=== PATIENT | male | born 1955 | race Caucasian/White ===

== ENCOUNTER → 2016-12-03 | Outpatient (CLI) | payer MEDICAID, OTHER ==
[2016-12-03 09:24] LABS: CHLORIDE,CL 99 mmol/L (98-110); SODIUM,NA 136 mmol/L (136-146)
--- NOTE | 2016-12-03 12:35 | CR ---
EXAMINATION: Left ankle HISTORY: Pain COMPARISON: None TECHNIQUE: 3 views FINDINGS: There is flattening of the talar dome. There is a well-corticated ossific density anterior to the distal tibia, likely an old injury. There is a prominent osteophyte along the lateral aspect of the distal fibula with overlying soft tissue swelling, also likely secondary to an old injury. M oderate soft tissue swelling is noted along the medial aspect of the ankle. There is likely a modera te tibiotalar joint effusion. Bone mineralization appears normal. No fracture or acute osseous abdom en. IMPRESSION: 1. Flattening of the talar dome. 2. Soft tissue swelling surrounding the ankle with a moderate tibiotalar joint effusion. 3. Likely an old traumatic deformity of the distal fibula and anterior distal tibia. 4. No acute osseous abnormality.
== END ==
LOC: MW.CHFP 08:44
PROVIDERS: ATTEND Student in an Organized Health Care Education/Training Program
DX: M25.572 Pain in left ankle and joints of left foot (principal); E11.69 Type 2 diabetes mellitus with other specified complication; E78.5 Hyperlipidemia, unspecified; I10 Essential (primary) hypertension; M89.8X7 Other specified disorders of bone, ankle and foot; R22.42 Localized swelling, mass and lump, left lower limb
CPT/HCPCS: 36415; 73610-26-LT; 73610-LT; 80053; 80061; 82044; 83036

== ENCOUNTER 2020-07-29 09:30 | Inpatient (IN) | payer BC ==
[2020-07-29] MEDS ORDERED: Sodium Chloride 0.9% 10 ML Syringe FLUSH PRN (09:41)
[2020-07-29] MEDS ORDERED: Gentamicin 160 MG in Sodium Chloride 0.9% 100 ML IV ONE (09:41)
[2020-07-29] MEDS ORDERED: Piperacillin/Tazobactam 4.5 GM in Sodium Chloride 0.9% 100 ML IV ONE ×3 (09:41→12:15)
[2020-07-29] MEDS ORDERED: Sodium Chloride 0.9% 2.5 ML Syringe FLUSH PRN (09:41)
[2020-07-29] MEDS ORDERED: Lactated Ringers 1,000 ML IV SCH ×2 (10:00)
--- NOTE | 2020-07-29 10:24 | CR ---
INDICATION: Syncope COMPARISON: None TECHNIQUE: Single-view portable chest radiograph FINDINGS: TUBES AND LINES: None. HEART AND MEDIASTINUM: The heart size is normal. The mediastinal contour appears normal for patient age. LUNGS AND PLEURAL SPACES: The lungs appear normal.The pleural spaces are unremarkable. OSSEOUS STRUCTURES: Age-appropriate appearance. No acute focal finding. IMPRESSION: No evidence of active pulmonary disease. Dictated by Long Zuniga MD @ Jul 29 2020 10:22AM Signed by Dr. Long Zuniga @ Jul 29 2020 10:23AM
--- NOTE | 2020-07-29 10:28 | CR ---
Indication: Concern for necrotizing fasciitis Technique: Two images of the right lower leg were acquired Comparison: None Findings: Clearly visible diffuse cutaneous and subcutaneous induration without obvious free air by plain film. No bone destruction. This pattern is most consistent with cellulitis in the setting of signs and symptoms of infection. CT is more sensitive for soft tissue air than plain film. If there is strong concern for necrotizing fasciitis, a CT would be advised. Impression: 1. Cutaneous and subcutaneous induration without obvious gas within soft tissues. 2. CT is more sensitive for soft tissue air than plain film in should be considered if there is significant clinical concern for necrotizing fasciitis. 3. No bone destruction or periosteal reaction. No radiopaque foreign body Dictated by Long Zuniga MD @ Jul 29 2020 10:24AM Signed by Dr. Long Zuniga @ Jul 29 2020 10:27AM
[2020-07-29 10:33] LABS: BLOOD UREA NITROGEN,BUN 24 mg/dL (7.0-18.0); CARBON DIOXIDE,CO2 17.8 mmol/L (21.0-32.0); CHLORIDE,CL 92 mmol/L (98-107); GLUCOSE RANDOM 161 mg/dL (74-106); POTASSIUM,K 3.7 mmol/L (3.5-5.1); SODIUM,NA 125 mmol/L (136-148)
[2020-07-29] MEDS ORDERED: Iopamidol 755 MG/ML 500 ML Multipack Bottle IVPUSH STA (11:30)
[2020-07-29] MEDS ORDERED: Vancomycin/Water for INJ (PEG) 2 GM in Premix Bag 1 BAG IV ONE (12:00)
--- NOTE | 2020-07-29 12:00 | EDM.PDOC ---
ED HPI GENERAL MEDICAL PROBLEM - General Chief Complaint: General Stated Complaint: EMS ARRIVAL Time Seen by Provider: 07/29/20 09:41 - History of Present Illness INITIAL COMMENTS - FREE TEXT/NARRATIVE: CHIEF COMPLAINT(S): Weakness HISTORY OF PRESENT ILLNESS: This is a 64-year-old man with a past medical history of diabetes mellitus and atrial fibrillation who comes to the emergency department with a chief complaint of weakness. The patient states that for approximately 4 days now he has been experiencing weakness. He states that he feels "like I have the flu." He states that he does have body aches but has not had a fever at home. He denies any chest pain or shortness of breath. He denies any abdominal pain, nausea or vomiting. He denies any dysuria or hematuria. Per EMS: The patient had 3 syncopal episodes this morning and that he does have open sores to his feet. Per the and EMS the right lower extremity started to get redder over the last day or so. The patient states that he did not have syncopal episodes and was just weak and unable to stand up on his own. He denies any falls or loss of consciousness. States that he does not walk with a walker but he does occasionally use a cane. In regards to his diabetic foot ulcers he states that this has been a longstanding problem and did not recognize the redness on his right leg. In route EMS stated the patient's blood pressure was 75/40 and the patient had an irregularly tachycardic rhythm up to 130. Blood sugar was 168. REVIEW OF SYSTEMS: Constitutional: Positive for weakness denies fever, chills. Eyes: Denies eye pain Ears, Nose, Mouth, & Throat: Denies earache Cardiovascular: Denies chest pain Respiratory: Denies shortness of breath Gastrointestinal: Denies Nausea, vomiting, diarrhea, hematochezia. Genitourinary: Denies hematuria Skin: Positive for bilateral foot diabetic ulcers and a rash of the right lower leg Neurological: Today for peripheral neuropathy of bilateral lower extremities. Denies blurred vision Psychiatric: Denies depression PAST MEDICAL HISTORY: As per history of present illness and as reviewed below otherwise noncontributory. SURGICAL HISTORY: As per history of present illness and as reviewed below otherwise noncontributory. SOCIAL HISTORY: As per history of present illness and as reviewed below otherwise noncontributory. FAMILY HISTORY: As per history of present illness and as reviewed below otherwise noncontributory. EXAMINATION OF ORGAN SYSTEMS/BODY AREAS: Constitutional: Blood pressure was 99/57, heart rate 118, respiratory rate 20 with an oxygen saturation 96% on room air. Temperature 38.0 orally General: Elderly obese gentleman who does not appear to be in any acute distress Psychiatric: Appropriate mood and affect. Eyes: No scleral icterus or conjunctival erythema ENMT: Mildly dry mucous membranes. No pharyngeal erythema. Cardiovascular: Irregular tachycardic rhythm no gallops, murmurs, or rubs. Bilateral upper extremity pulses symmetric and intact. No obvious JVD. Respiratory: Lungs clear to auscultation bilaterally. No wheezes, rales, or rhonchi. Speaking in full sentences Gastrointestinal: Soft, non-tender, non-distended. Normoactive bowel sounds Genitourinary: No suprapubic tenderness Musculoskeletal: Patient cannot move all 4 extremities equally however patient does appear to be weak. Skin: There are 2 bilateral diabetic foot ulcers located on the heels bilaterally which appear dry and nonpurulent. On the right lower extremity there does appear to be an erythematous rash extending up to the mid thigh and on the top of the foot with some areas of boils. This area is nontender and warm to touch. No obvious crepitus. Neurological: Alert, GCS 15 MEDICAL DECISION MAKING AND COURSE IN THE ED WITH INTERPRETATION/REVIEW OF DIAGNOSTIC STUDIES: This is a 64-year-old man with a past medical history of diabetes mellitus and atrial fibrillation who comes to the emergency department with weakness who is febrile, tachycardic, and borderline hypotensive with an area of his right lower extremity suggesting cellulitis versus diabetic foot ulcer with extending infection concerning for possible cellulitis versus necrotizing fasciitis. There is no obvious crepitus and the patient's blood pressure has improved after EMS has given 1 L of normal saline. We will undergo a sepsis work-up. Will obtain CBC, CMP, coags, lactic acid and provide the patient with an additional 1.5 L of lactated Ringer's for an equivalent of 30 cc/kg. We will start the patient on vancomycin, Zosyn, and gentamicin. I will obtain a chest x-ray, urinalysis, right lower extremity x-ray and a CT of the right lower extremity to evaluate for free air. At this time the patient is not complaining of any pain therefore no pain medication will be administered. Mynor juarez will be placed on cardiac monitoring and pulse oximetry. Will obtain coronavirus and influenza swabs. Laboratory: CBC reveals thrombocytopenia with a platelet count of 101 with normal WBC count but neutropenia and lymphopenia. There is a moderate amount of reactive lymphocytes in vacuolated monocytes. Coags are within normal limits. Lactic acid is 1.3. The patient has hyponatremia at 125, hypochloremia at 92 and a metabolic acidosis with a bicarbonate of 17.8. There is hyperglycemia at 161 and hypocalcemia at 8.1. Hypoalbuminemia at 2.7. The radiological images were viewed by myself along with reading the report from the radiologist. Chest x-ray reveals no acute cardiopulmonary process. Right tib-fib x-ray reveals cutaneous and subcutaneous induration without obvious gas within soft tissues. Twelve-lead EKG interpreted by myself. Atrial fibrillation at a rate of 116beats per minute. Normal axis. QRS duration is 106ms. ST segments are normal without elevations or depressions. Q waves present in lead III and aVF. Hypertrophy not noted. No prior EKGs in our system. Interpretation: Atrial fibrillation with mild RVR The radiological images were viewed by myself along with reading the report from the radiologist. Lower extremity CT with and without contrast does not reveal any evidence of subcutaneous air. There is mild subcutaneous edema over the anterior and medial thigh and subcutaneous edema and fluid surrounding the calf. After imaging, fluids, and reevaluation the patient's heart rate remained stable and the patient was now with a MAP greater than 65. I did discuss with patient admission. He was amenable to this plan. I contacted medical director of hospice Dr. Virgen who accepted the admission. DISPOSITION: The patient was admitted to telemetry in stable condition CONDITION: Serious PROCEDURES: None FINAL IMPRESSION(S)/DIAGNOSES: 1. Acute sepsis secondary to right lower extremity cellulitis Clemente Barahona M.D. shoulders Pain Score (Numeric/FACES): 5 - Related Data Allergies Allergy/AdvReac Type Severity Reaction Status Date / Time No Known Allergies Allergy Verified 07/29/20 15:08 Home Meds: Home Meds Apixaban [Eliquis] 5 mg PO BID 07/29/20 [History] Diltiazem [Cardizem] 120 mg PO DAILY 07/29/20 [History] Empagliflozin [Jardiance] 25 mg PO DAILY 07/29/20 [History] Furosemide [Lasix] 50 mg PO DAILY 07/29/20 [History] Spironolactone [Aldactone] 25 mg PO DAILY 07/29/20 [History] carvediloL [Carvedilol] 25 mg PO BID 07/29/20 [History] lisinopriL [Lisinopril] 10 mg PO DAILY 07/29/20 [History] Past Medical History Cardiovascular History: Reports: Afib, Hypertension Endocrine/Metabolic History: Reports: Diabetes, Type II - Infectious Disease History Infectious Disease History: Reports: Chicken Pox, Measles, Mumps ED ROS GENERAL - Review of Systems Review Of Systems: See Below ED EXAM, GENERAL - Physical Exam Exam: See Below Course - Vital Signs Last Recorded V/S: Last Vital Signs Temp 36.7 C 07/29/20 18:37 Pulse 130 H 07/29/20 18:37 Resp 20 07/29/20 18:37 BP 105/69 07/29/20 18:37 Pulse Ox 96 07/29/20 18:37 - Orders/Labs/Meds Orders: Active Orders 24 hr Category Date Time Status Cardiac Monitoring [RC] Q8H Care 07/29/20 09:42 Active Overnight Pulse Oximetry [RC] Click to Edit Care 07/29/20 09:43 Active CULTURE BLOOD [BC] Stat Lab 07/29/20 09:43 Received CULTURE BLOOD [BC] Stat Lab 07/29/20 09:57 Received STOOL CULTURE/SHIGA TOXIN [MREF] Stat Lab 07/29/20 13:15 Received Lactated Ringers [Ringers, Lactated] 1,000 ml Med 07/29/20 10:00 Active IV ASDIRECTED Lactated Ringers [Ringers, Lactated] 1,000 ml Med 07/29/20 10:00 Active IV ASDIRECTED Sodium Chloride 0.9% [Saline Flush] Med 07/29/20 09:41 Active 10 ml FLUSH ASDIRECTED PRN Sodium Chloride 0.9% [Saline Flush] Med 07/29/20 09:41 Active 2.5 ml FLUSH ASDIRECTED PRN Blood Culture x2 Reflex Set [OM.PC] Stat Oth 07/29/20 09:41 Ordered Pulse Oximetry Continuous Monitoring [OM.PC] Routine Oth 07/29/20 09:41 Ordered Saline Lock Insert [OM.PC] Stat Oth 07/29/20 09:41 Ordered Severe Sepsis Onset Time [OM.PC] Stat Oth 07/29/20 09:41 Ordered Medication Orders Apixaban (Eliquis) 5 mg PO BID [facility] Carvedilol (Coreg) 25 mg PO BID [facility] Dextrose/Water (Dextrose 50% In Water) 50 ml IV ASDIRECTED PRN PRN Reason: Hypoglycemia Diltiazem HCl (Cardizem Cd) 120 mg PO DAILY [facility] Last Admin: 07/29/20 17:22 Dose: 120 mg Documented by: [email or web address] Diltiazem HCl (Diltiazem) 20 mg IVPUSH Q6H PRN PRN Reason: Tachycardia Furosemide (Lasix) 50 mg PO DAILY [facility] Glucagon (Glucagen) 1 mg IM ASDIRECTED PRN PRN Reason: Hypoglycemia Lactated Ringer's (Ringers, Lactated) 1,000 mls @ 999 mls/hr IV ASDIRECTED [facility] Last Admin: 07/29/20 09:52 Dose: 999 mls/hr Documented by: [id number] Lactated Ringer's (Ringers, Lactated) 1,000 mls @ 500 mls/hr IV ASDIRECTED [facility] Last Admin: 07/29/20 09:53 Dose: 500 mls/hr Documented by: [id number] Piperacillin Sod/Tazobactam (Sod 4.5 gm/ Sodium Chloride) 100 mls @ 100 mls/hr IV Q6H [facility] Last Admin: 07/29/20 17:48 Dose: 100 mls/hr Documented by: [email or web address] Vancomycin HCl 1.5 gm/ Premix 300 mls @ 200 mls/hr IV Q12H [facility] Sodium Chloride (Normal Saline) 1,000 mls @ 500 mls/hr IV STAT ONE Stop: 07/29/20 20:51 Last Admin: 07/29/20 19:18 Dose: 500 mls/hr Documented by: NANCY Insulin Aspart (Novolog) 0 unit SUBCUT TIDAC [facility]; Protocol Last Admin: 07/29/20 17:35 Dose: Not Given Documented by: NANCY Lisinopril (Prinivil) 10 mg PO DAILY [facility] Sodium Chloride (Saline Flush) 10 ml FLUSH ASDIRECTED PRN PRN Reason: Keep Vein Open Last Admin: 07/29/20 09:53 Dose: 10 ml Documented by: [id number] Sodium Chloride (Saline Flush) 2.5 ml FLUSH ASDIRECTED PRN PRN Reason: Keep Vein Open Last Admin: 07/29/20 09:53 Dose: 2.5 ml Documented by: [email or web address] Sodium Chloride ([place] Saline Nasal Gel) 0 gm SCOTT ASDIRECTED PRN PRN Reason: Nasal Dryness Spironolactone (Aldactone) 25 mg PO DAILY [facility] Vancomycin HCl (Pharmacy To Dose - Vancomycin) 1 dose .XX ASDIRECTED GAEL Labs: Laboratory Tests 07/29/20 07/29/20 07/29/20 Range/Units 09:43 09:43 09:43 WBC 9.40 (4.0-11.0) K/uL RBC 4.59 (4.50-5.90) M/uL Hgb 13.3 (13.0-17.0) g/dL Hct 40.3 (38.0-50.0) % MCV 87.8 (80.0-98.0) fL MCH 29.0 (27.0-32.0) pg MCHC 33.0 (31.0-37.0) g/dL RDW Std Deviation 50.6 (28.0-62.0) fl RDW Coeff of Conchita 16 H (11.0-15.0) % Plt Count 101 L (150-400) K/uL MPV 9.00 (7.40-12.00) fL Add Manual Diff YES Neutrophils % (Manual) 43 L (48.0-80.0) % Band Neutrophils % 36 % Lymphocytes % (Manual) 15 L (16.0-40.0) % Monocytes % (Manual) 6 (0.0-15.0) % Nucleated RBC % 0.0 /100WBC Absolute Seg Neuts 4.0 (1.4-5.7) Band Neutrophils # 3.4 Lymphocytes # (Manual) 1.4 (0.6-2.4) Monocytes # (Manual) 0.6 (0.0-0.8) Nucleated RBCs # 0 K/uL Reactive Lymphocytes MODERATE Vacuolated Monocytes MODERATE INR 1.68 Lactate 1.3 (0.20-2.00) mmol/L Sodium (136-148) mmol/L Potassium (3.5-5.1) mmol/L Chloride (98-107) mmol/L Carbon Dioxide (21.0-32.0) mmol/L BUN (7.0-18.0) mg/dL Creatinine (0.8-1.3) mg/dL Est Cr Clr Drug Dosing mL/min Estimated GFR (MDRD) ml/min Glucose (74-106) mg/dL Hemoglobin A1c (4.5 - 6.2) % Calcium (8.5-10.1) mg/dL Total Bilirubin (0.2-1.0) mg/dL AST (15-37) IU/L ALT (14-63) IU/L Alkaline Phosphatase (46-116) U/L Troponin I (0.000-0.056) ng/mL Total Protein (6.4-8.2) g/dL Albumin (3.4-5.0) g/dL Globulin (2.6-4.0) g/dL Albumin/Globulin Ratio (0.9-1.6) Urine Color Urine Appearance Urine pH (5.0-8.0) Ur Specific Stitzer (1.001-1.035) Urine Protein (NEGATIVE) mg/dL Urine Glucose (UA) (NEGATIVE) mg/dL Urine Ketones (NEGATIVE) mg/dL Urine Occult Blood (NEGATIVE) Urine Nitrite (NEGATIVE) Urine Bilirubin (NEGATIVE) Urine Urobilinogen (<2.0) EU/dL Ur Leukocyte Esterase (NEGATIVE) Urine RBC (0-2/HPF) Urine WBC (0-5/HPF) Ur Epithelial Cells (NONE-FEW) Urine Bacteria (NEGATIVE) Influenza Type A RNA (NEGATIVE) Influenza Type B RNA (NEGATIVE) SARS-CoV-2 RNA (MATT) (NEGATIVE) 07/29/20 07/29/20 07/29/20 Range/Units 09:43 09:43 12:05 WBC (4.0-11.0) K/uL RBC (4.50-5.90) M/uL Hgb (13.0-17.0) g/dL Hct (38.0-50.0) % MCV (80.0-98.0) fL MCH (27.0-32.0) pg MCHC (31.0-37.0) g/dL RDW Std Deviation (28.0-62.0) fl RDW Coeff of Conchita (11.0-15.0) % Plt Count (150-400) K/uL MPV (7.40-12.00) fL Add Manual Diff Neutrophils % (Manual) (48.0-80.0) % Band Neutrophils % % Lymphocytes % (Manual) (16.0-40.0) % Monocytes % (Manual) (0.0-15.0) % Nucleated RBC % /100WBC Absolute Seg Neuts (1.4-5.7) Band Neutrophils # Lymphocytes # (Manual) (0.6-2.4) Monocytes # (Manual) (0.0-0.8) Nucleated RBCs # K/uL Reactive Lymphocytes Vacuolated Monocytes INR Lactate (0.20-2.00) mmol/L Sodium 125 L (136-148) mmol/L Potassium 3.7 (3.5-5.1) mmol/L Chloride 92 L (98-107) mmol/L Carbon Dioxide 17.8 L (21.0-32.0) mmol/L BUN 24 H (7.0-18.0) mg/dL Creatinine 1.0 (0.8-1.3) mg/dL Est Cr Clr Drug Dosing 85.45 mL/min Estimated GFR (MDRD) > 60.0 ml/min Glucose 161 H (74-106) mg/dL Hemoglobin A1c 6.8 H (4.5 - 6.2) % Calcium 8.1 L (8.5-10.1) mg/dL Total Bilirubin 1.0 (0.2-1.0) mg/dL AST 17 (15-37) IU/L ALT 18 (14-63) IU/L Alkaline Phosphatase 49 (46-116) U/L Troponin I < 0.050 (0.000-0.056) ng/mL Total Protein 6.2 L (6.4-8.2) g/dL Albumin 2.7 L (3.4-5.0) g/dL Globulin 3.5 (2.6-4.0) g/dL Albumin/Globulin Ratio 0.8 L (0.9-1.6) Urine Color Urine Appearance Urine pH (5.0-8.0) Ur Specific Stitzer (1.001-1.035) Urine Protein (NEGATIVE) mg/dL Urine Glucose (UA) (NEGATIVE) mg/dL Urine Ketones (NEGATIVE) mg/dL Urine Occult Blood (NEGATIVE) Urine Nitrite (NEGATIVE) Urine Bilirubin (NEGATIVE) Urine Urobilinogen (<2.0) EU/dL Ur Leukocyte Esterase (NEGATIVE) Urine RBC (0-2/HPF) Urine WBC (0-5/HPF) Ur Epithelial Cells (NONE-FEW) Urine Bacteria (NEGATIVE) Influenza Type A RNA NEGATIVE (NEGATIVE) Influenza Type B RNA NEGATIVE (NEGATIVE) SARS-CoV-2 RNA (MATT) NEGATIVE (NEGATIVE) 07/29/20 Range/Units 13:13 WBC (4.0-11.0) K/uL RBC (4.50-5.90) M/uL Hgb (13.0-17.0) g/dL Hct (38.0-50.0) % MCV (80.0-98.0) fL MCH (27.0-32.0) pg MCHC (31.0-37.0) g/dL RDW Std Deviation (28.0-62.0) fl RDW Coeff of Conchita (11.0-15.0) % Plt Count (150-400) K/uL MPV (7.40-12.00) fL Add Manual Diff Neutrophils % (Manual) (48.0-80.0) % Band Neutrophils % % Lymphocytes % (Manual) (16.0-40.0) % Monocytes % (Manual) (0.0-15.0) % Nucleated RBC % /100WBC Absolute Seg Neuts (1.4-5.7) Band Neutrophils # Lymphocytes # (Manual) (0.6-2.4) Monocytes # (Manual) (0.0-0.8) Nucleated RBCs # K/uL Reactive Lymphocytes Vacuolated Monocytes INR Lactate (0.20-2.00) mmol/L Sodium (136-148) mmol/L Potassium (3.5-5.1) mmol/L Chloride (98-107) mmol/L Carbon Dioxide (21.0-32.0) mmol/L BUN (7.0-18.0) mg/dL Creatinine (0.8-1.3) mg/dL Est Cr Clr Drug Dosing mL/min Estimated GFR (MDRD) ml/min Glucose (74-106) mg/dL Hemoglobin A1c (4.5 - 6.2) % Calcium (8.5-10.1) mg/dL Total Bilirubin (0.2-1.0) mg/dL AST (15-37) IU/L ALT (14-63) IU/L Alkaline Phosphatase (46-116) U/L Troponin I (0.000-0.056) ng/mL Total Protein (6.4-8.2) g/dL Albumin (3.4-5.0) g/dL Globulin (2.6-4.0) g/dL Albumin/Globulin Ratio (0.9-1.6) Urine Color YELLOW Urine Appearance CLEAR Urine pH 5.5 (5.0-8.0) Ur Specific Stitzer 1.010 (1.001-1.035) Urine Protein NEGATIVE (NEGATIVE) mg/dL Urine Glucose (UA) >=1000 (NEGATIVE) mg/dL Urine Ketones 15 H (NEGATIVE) mg/dL Urine Occult Blood NEGATIVE (NEGATIVE) Urine Nitrite NEGATIVE (NEGATIVE) Urine Bilirubin NEGATIVE (NEGATIVE) Urine Urobilinogen 0.2 (<2.0) EU/dL Ur Leukocyte Esterase NEGATIVE (NEGATIVE) Urine RBC 0-2 (0-2/HPF) Urine WBC 0-2 (0-5/HPF) Ur Epithelial Cells RARE (NONE-FEW) Urine Bacteria FEW (NEGATIVE) Influenza Type A RNA (NEGATIVE) Influenza Type B RNA (NEGATIVE) SARS-CoV-2 RNA (MATT) (NEGATIVE) Meds: Medications Generic Name Dose Route Start Last Admin Trade Name Freq PRN Reason Stop Dose Admin Apixaban 5 mg 07/29/20 21:00 Eliquis PO BID [facility] Carvedilol 25 mg 07/29/20 21:00 Coreg PO BID [facility] Dextrose/Water 50 ml 07/29/20 15:11 Dextrose 50% In Water IV ASDIRECTED PRN Hypoglycemia Diltiazem HCl 120 mg 07/29/20 17:15 07/29/20 17:22 Cardizem Cd PO 120 mg DAILY GAEL Administration Diltiazem HCl 20 mg 07/29/20 19:01 Diltiazem IVPUSH Q6H PRN Tachycardia Furosemide 50 mg 07/30/20 09:00 Lasix PO DAILY [facility] Glucagon 1 mg 07/29/20 15:11 Glucagen IM ASDIRECTED PRN Hypoglycemia Lactated Ringer's 1,000 mls @ 999 mls/hr 07/29/20 10:00 07/29/20 09:52 Ringers, Lactated IV 999 mls/hr ASDIRECTED GAEL Administration Lactated Ringer's 1,000 mls @ 500 mls/hr 07/29/20 10:00 07/29/20 09:53 Ringers, Lactated IV 500 mls/hr ASDIRECTED GAEL Administration Piperacillin Sod/Tazobactam 100 mls @ 100 mls/hr 07/29/20 18:00 07/29/20 17:48 Sod 4.5 gm/ Sodium Chloride IV 100 mls/hr Q6H [facility] Administration Vancomycin HCl 1.5 gm/ Premix 300 mls @ 200 mls/hr 07/29/20 23:30 IV Q12H [facility] Sodium Chloride 1,000 mls @ 500 mls/hr 07/29/20 18:52 07/29/20 19:18 Normal Saline IV 07/29/20 20:51 500 mls/hr STAT ONE Administration Insulin Aspart 0 unit 07/29/20 17:00 07/29/20 17:35 Novolog SUBCUT Not Given TIDAC [facility] Protocol Lisinopril 10 mg 07/30/20 09:00 Prinivil PO DAILY [facility] Sodium Chloride 10 ml 07/29/20 09:41 07/29/20 09:53 Saline Flush FLUSH 10 ml ASDIRECTED PRN Administration Keep Vein Open Sodium Chloride 2.5 ml 07/29/20 09:41 07/29/20 09:53 Saline Flush FLUSH 2.5 ml ASDIRECTED PRN Administration Keep Vein Open Sodium Chloride 0 gm 07/29/20 15:38 [place] Saline Nasal Gel SCOTT ASDIRECTED PRN Nasal Dryness Spironolactone 25 mg 07/30/20 09:00 Aldactone PO DAILY [facility] Vancomycin HCl 1 dose 07/29/20 15:15 Pharmacy To Dose - Vancomycin .XX ASDIRECTED [facility] Discontinued Medications Generic Name Dose Route Start Last Admin Trade Name Freq PRN Reason Stop Dose Admin Acetaminophen 1,000 mg 07/29/20 12:38 07/29/20 13:35 Tylenol Extra Strength PO 07/29/20 12:39 1,000 mg ONETIME ONE Administration Piperacillin Sod/Tazobactam 100 mls @ 200 mls/hr 07/29/20 09:41 07/29/20 12:09 Sod 4.5 gm/ Sodium Chloride IV 07/29/20 10:10 Not Given STAT ONE Gentamicin Sulfate 160 mg/ 104 mls @ 200 mls/hr 07/29/20 09:41 07/29/20 10:51 Sodium Chloride IV 07/29/20 10:10 200 mls/hr STAT ONE Administration Piperacillin Sod/Tazobactam 100 mls @ 200 mls/hr 07/29/20 10:00 07/29/20 12:23 Sod 4.5 gm/ Sodium Chloride IV 07/29/20 10:29 Not Given STAT ONE Vancomycin HCl 2 gm/ Premix 400 mls @ 200 mls/hr 07/29/20 12:00 07/29/20 11:55 IV 07/29/20 13:59 200 mls/hr ONETIME ONE Administration Piperacillin Sod/Tazobactam 100 mls @ 200 mls/hr 07/29/20 12:15 07/29/20 12:21 Sod 4.5 gm/ Sodium Chloride IV 07/29/20 12:44 200 mls/hr STAT ONE Administration Iopamidol 100 ml 07/29/20 11:30 07/29/20 11:30 Isovue Multipack-370 (76%) IVPUSH 07/29/20 11:31 100 ml ONETIME STA Administration Departure - Departure Time of Disposition: 14:02 Disposition: DC/Tfer to Medicaid [facility] Clinical Impression: Cellulitis - Discharge Information Sepsis Event Note (ED) - Evaluation Sepsis Screening Result: Possible Sepsis Risk - Focused Exam Vital Signs: Vital Signs Temp Temp Pulse Resp BP Pulse Ox 07/29/20 13:40 115 H 20 116/86 94 L 07/29/20 13:35 37.8 C 07/29/20 13:07 103 H 84/53 L 94 L 07/29/20 12:53 121 H 94/58 L 96 07/29/20 12:37 116 H 85/50 L 93 L 07/29/20 12:29 104 H 83/42 L 94 L 07/29/20 11:57 119 H 86/52 L 93 L 07/29/20 11:42 107 H 91/55 L 94 L 07/29/20 11:27 107 H 85/52 L 94 L 07/29/20 10:53 112 H 97/56 L 94 L 07/29/20 10:39 127 H 90/53 L 94 L 07/29/20 10:23 114 H 85/47 L 94 L 07/29/20 10:13 104 H 72/44 L 96 07/29/20 09:57 107 H 89/49 L 95 07/29/20 09:47 38.0 C 118 H 20 99/57 L 96 - My Orders Last 24 Hours: My Active Orders 07/29/20 09:41 Sodium Chloride 0.9% [Saline Flush] 10 ml FLUSH ASDIRECTED PRN Sodium Chloride 0.9% [Saline Flush] 2.5 ml FLUSH ASDIRECTED PRN Blood Culture x2 Reflex Set [OM.PC] Stat Pulse Oximetry Continuous Monitoring [OM.PC] Routine Saline Lock Insert [OM.PC] Stat Severe Sepsis Onset Time [OM.PC] Stat 07/29/20 09:42 Cardiac Monitoring [RC] Q8H 07/29/20 09:43 Overnight Pulse Oximetry [RC] Click to Edit CULTURE BLOOD [BC] Stat 07/29/20 09:57 CULTURE BLOOD [BC] Stat 07/29/20 10:00 Lactated Ringers [Ringers, Lactated] 1,000 ml IV ASDIRECTED Lactated Ringers [Ringers, Lactated] 1,000 ml IV ASDIRECTED 07/29/20 13:15 STOOL CULTURE/SHIGA TOXIN [MREF] Stat - Assessment/Plan Last 24 Hours: My Active Orders 07/29/20 09:41 Sodium Chloride 0.9% [Saline Flush] 10 ml FLUSH ASDIRECTED PRN Sodium Chloride 0.9% [Saline Flush] 2.5 ml FLUSH ASDIRECTED PRN Blood Culture x2 Reflex Set [OM.PC] Stat Pulse Oximetry Continuous Monitoring [OM.PC] Routine Saline Lock Insert [OM.PC] Stat Severe Sepsis Onset Time [OM.PC] Stat 07/29/20 09:42 Cardiac Monitoring [RC] Q8H 07/29/20 09:43 Overnight Pulse Oximetry [RC] Click to Edit CULTURE BLOOD [BC] Stat 07/29/20 09:57 CULTURE BLOOD [BC] Stat 07/29/20 10:00 Lactated Ringers [Ringers, Lactated] 1,000 ml IV ASDIRECTED Lactated Ringers [Ringers, Lactated] 1,000 ml IV ASDIRECTED 07/29/20 13:15 STOOL CULTURE/SHIGA TOXIN [MREF] Stat
[2020-07-29] MEDS ORDERED: Acetaminophen 500 MG Tab PO ONE (12:38)
[2020-07-29 12:59] LABS: CORONAVIRUS COVID-19 NAA NEGATIVE (NEGATIVE); INFLUENZA A NAA NEGATIVE (NEGATIVE); INFLUENZA B NAA NEGATIVE (NEGATIVE)
--- NOTE | 2020-07-29 13:50 | CT ---
INDICATION: Evaluate for free air/necrotizing fasciitis. TECHNIQUE: CT scan of the right lower extremity with 100 cc of Isovue-370 given intravenously. FINDINGS: No evidence of acute fracture or dislocation. Mild subcutaneous edema over the anterior and medial thigh. Subcutaneous edema and fluid surrounding the calf. No subcutaneous air. No significant edema deep to the superficial fascia. Varicose veins in the lower thigh and calf. Small knee joint effusion. Prominent right inguinal lymph nodes measuring up to 1.6 cm in short axis. Impression : 1. Mild subcutaneous edema over the anterior and medial thigh. Subcutaneous edema and fluid surrounding the calf. 2. No significant edema deep to the superficial fascia. No subcutaneous air. Dictated by Santos Tyler MD @ 07/29/2020 1:49:02 PM Dictated by: Santos Tyler MD @ 07/29/2020 13:49:26 (Electronically Signed)
--- NOTE | 2020-07-29 13:50 | CT ---
INDICATION: Evaluate for free air/necrotizing fasciitis. TECHNIQUE: CT scan of the right lower extremity with 100 cc of Isovue-370 given intravenously. FINDINGS: No evidence of acute fracture or dislocation. Mild subcutaneous edema over the anterior and medial thigh. Subcutaneous edema and fluid surrounding the calf. No subcutaneous air. No significant edema deep to the superficial fascia. Varicose veins in the lower thigh and calf. Small knee joint effusion. Prominent right inguinal lymph nodes measuring up to 1.6 cm in short axis. Impression : 1. Mild subcutaneous edema over the anterior and medial thigh. Subcutaneous edema and fluid surrounding the calf. 2. No significant edema deep to the superficial fascia. No subcutaneous air. Please note that all CT scans at this facility use dose modulation, iterative reconstruction, and/or weight-based dosing when appropriate to reduce radiation dose to as low as reasonably achievable. Dictated by Santos Tyler MD @ Jul 29 2020 1:31PM Signed by Dr. Santos Tyler @ Jul 29 2020 1:48PM
--- NOTE | 2020-07-29 14:17 | PCM.HP.2 ---
<Roshan Akhtar - Last Filed: 07/29/20 16:40> H&P History of Present Illness - General Date of Service: 07/29/20 Admit Problem/Dx: Admission Diagnosis/Problem Admission Diagnosis/Problem Sepsis Source of Information: Patient History Limitations: Reports: No Limitations - History of Present Illness Initial Comments - Free Text/Narative: Patient is a 64-year-old male with a significant past medical history of diastolic heart failure, chronic lower extremity ulcerations in light of his type 2 diabetes, morbid obesity, chronic atrial fibrillation on diltiazem and Eliquis presenting today to ED via EMS secondary to concerns for fatigue without altered mental status and or loss of consciousness. Reported via EMS of having elevated heart greater than 130 without any associated chest pain and or shortness of breath. Patient otherwise was in no acute distress. ED course: Covid negative. Flu negative. Mildly tachycardic received 1 L lactated Ringer's. Lower extremity cellulitis concerns for etiology of sepsis; provided dose of vancomycin and Zosyn and gentamicin for pseudomonal coverage. Heart rate improved with fluids with a pulse hovering between 100-115 Lactate: 1.3 CT of lower extremity/right: suggests mild subcutaneous edema over anterior medial thigh of right lower extremity. No significant edema deep to superficial fascia No free air noted Bedside: No acute distress. Cellulitis noted. shoulders Pain Score (Numeric/FACES): 5 - Related Data Allergies/Adverse Reactions: Allergies Allergy/AdvReac Type Severity Reaction Status Date / Time No Known Allergies Allergy Verified 07/29/20 15:08 Home Medications: Home Meds Apixaban [Eliquis] 5 mg PO BID 07/29/20 [History] Diltiazem [Cardizem] 120 mg PO DAILY 07/29/20 [History] Empagliflozin [Jardiance] 25 mg PO DAILY 07/29/20 [History] Furosemide [Lasix] 40 mg PO DAILY 07/29/20 [History] Spironolactone [Aldactone] 25 mg PO DAILY 07/29/20 [History] carvediloL [Carvedilol] 25 mg PO BID 07/29/20 [History] lisinopriL [Lisinopril] 10 mg PO DAILY 07/29/20 [History] Past Medical History Cardiovascular History: Reports: Afib, Hypertension Endocrine/Metabolic History: Reports: Diabetes, Type II - Infectious Disease History Infectious Disease History: Reports: Chicken Pox, Measles, Mumps H&P Review of Systems - Review of Systems: Review Of Systems: See Below General: Reports: Malaise. Denies: Fever, Chills, Fatigue HEENT: Reports: No Symptoms Pulmonary: Reports: No Symptoms Cardiovascular: Reports: No Symptoms Gastrointestinal: Reports: No Symptoms Genitourinary: Reports: No Symptoms Musculoskeletal: Reports: Back Pain Skin: Reports: Rash, Erythema, Lumps Psychiatric: Reports: No Symptoms Neurological: Reports: No Symptoms Exam - Exam Exam: See Below - Vital Signs Vital Signs: Last Vital Signs Temp 100.0 F 07/29/20 13:35 Pulse 115 H 07/29/20 13:40 Resp 20 07/29/20 13:40 BP 116/86 07/29/20 13:40 Pulse Ox 94 L 07/29/20 13:40 Weight: 133.81 kg - Exam Quality Assessment: No: Supplemental Oxygen General: Cooperative HEENT: EOMI Neck: Supple, Trachea Midline Lungs: Clear to Auscultation, Normal Respiratory Effort Cardiovascular: Regular Rate, Irregular Rhythm GI/Abdominal Exam: Soft, Other (obese; no fluid wave noted ) (Male) Exam: Other (no overt rash noted in genital area ) Extremities: Other (right lower extremity :cellultiis noted over right lower extremity tracking upto 2/3 of right leg w. increased warmth and mild tenderness noted over shins w. hemorrhagic bullae over dorsum of foot measuring 3 x3 cm (black and raised) ; lesions w. weeping ddrainage noted over heel as well. Sensation intact. Left foot : heel erythema noted over heel w. minimal skin breakdown. ) Neurological: Normal Speech Neuro Extensive - Mental Status: Alert, Oriented x3 Psychiatric: Alert, Normal Mood - Patient Data Lab Results Last 24 hrs: Laboratory Results - last 24 hr 07/29/20 07/29/20 07/29/20 Range/Units 09:43 09:43 09:43 WBC 9.40 (4.0-11.0) K/uL RBC 4.59 (4.50-5.90) M/uL Hgb 13.3 (13.0-17.0) g/dL Hct 40.3 (38.0-50.0) % MCV 87.8 (80.0-98.0) fL MCH 29.0 (27.0-32.0) pg MCHC 33.0 (31.0-37.0) g/dL RDW Std Deviation 50.6 (28.0-62.0) fl RDW Coeff of Conchita 16 H (11.0-15.0) % Plt Count 101 L (150-400) K/uL MPV 9.00 (7.40-12.00) fL Add Manual Diff YES Neutrophils % (Manual) 43 L (48.0-80.0) % Band Neutrophils % 36 % Lymphocytes % (Manual) 15 L (16.0-40.0) % Monocytes % (Manual) 6 (0.0-15.0) % Nucleated RBC % 0.0 /100WBC Absolute Seg Neuts 4.0 (1.4-5.7) Band Neutrophils # 3.4 Lymphocytes # (Manual) 1.4 (0.6-2.4) Monocytes # (Manual) 0.6 (0.0-0.8) Nucleated RBCs # 0 K/uL Reactive Lymphocytes MODERATE Vacuolated Monocytes MODERATE INR 1.68 Lactate 1.3 (0.20-2.00) mmol/L Sodium (136-148) mmol/L Potassium (3.5-5.1) mmol/L Chloride (98-107) mmol/L Carbon Dioxide (21.0-32.0) mmol/L BUN (7.0-18.0) mg/dL Creatinine (0.8-1.3) mg/dL Est Cr Clr Drug Dosing mL/min Estimated GFR (MDRD) ml/min Glucose (74-106) mg/dL Calcium (8.5-10.1) mg/dL Total Bilirubin (0.2-1.0) mg/dL AST (15-37) IU/L ALT (14-63) IU/L Alkaline Phosphatase (46-116) U/L Troponin I (0.000-0.056) ng/mL Total Protein (6.4-8.2) g/dL Albumin (3.4-5.0) g/dL Globulin (2.6-4.0) g/dL Albumin/Globulin Ratio (0.9-1.6) Urine Color Urine Appearance Urine pH (5.0-8.0) Ur Specific [place] (1.001-1.035) Urine Protein (NEGATIVE) mg/dL Urine Glucose (UA) (NEGATIVE) mg/dL Urine Ketones (NEGATIVE) mg/dL Urine Occult Blood (NEGATIVE) Urine Nitrite (NEGATIVE) Urine Bilirubin (NEGATIVE) Urine Urobilinogen (<2.0) EU/dL Ur Leukocyte Esterase (NEGATIVE) Urine RBC (0-2/HPF) Urine WBC (0-5/HPF) Ur Epithelial Cells (NONE-FEW) Urine Bacteria (NEGATIVE) Influenza Type A RNA (NEGATIVE) Influenza Type B RNA (NEGATIVE) SARS-CoV-2 RNA (MATT) (NEGATIVE) 07/29/20 07/29/20 07/29/20 Range/Units 09:43 12:05 13:13 WBC (4.0-11.0) K/uL RBC (4.50-5.90) M/uL Hgb (13.0-17.0) g/dL Hct (38.0-50.0) % MCV (80.0-98.0) fL MCH (27.0-32.0) pg MCHC (31.0-37.0) g/dL RDW Std Deviation (28.0-62.0) fl RDW Coeff of Conchita (11.0-15.0) % Plt Count (150-400) K/uL MPV (7.40-12.00) fL Add Manual Diff Neutrophils % (Manual) (48.0-80.0) % Band Neutrophils % % Lymphocytes % (Manual) (16.0-40.0) % Monocytes % (Manual) (0.0-15.0) % Nucleated RBC % /100WBC Absolute Seg Neuts (1.4-5.7) Band Neutrophils # Lymphocytes # (Manual) (0.6-2.4) Monocytes # (Manual) (0.0-0.8) Nucleated RBCs # K/uL Reactive Lymphocytes Vacuolated Monocytes INR Lactate (0.20-2.00) mmol/L Sodium 125 L (136-148) mmol/L Potassium 3.7 (3.5-5.1) mmol/L Chloride 92 L (98-107) mmol/L Carbon Dioxide 17.8 L (21.0-32.0) mmol/L BUN 24 H (7.0-18.0) mg/dL Creatinine 1.0 (0.8-1.3) mg/dL Est Cr Clr Drug Dosing 85.45 mL/min Estimated GFR (MDRD) > 60.0 ml/min Glucose 161 H (74-106) mg/dL Calcium 8.1 L (8.5-10.1) mg/dL Total Bilirubin 1.0 (0.2-1.0) mg/dL AST 17 (15-37) IU/L ALT 18 (14-63) IU/L Alkaline Phosphatase 49 (46-116) U/L Troponin I < 0.050 (0.000-0.056) ng/mL Total Protein 6.2 L (6.4-8.2) g/dL Albumin 2.7 L (3.4-5.0) g/dL Globulin 3.5 (2.6-4.0) g/dL Albumin/Globulin Ratio 0.8 L (0.9-1.6) Urine Color YELLOW Urine Appearance CLEAR Urine pH 5.5 (5.0-8.0) Ur Specific [place] 1.010 (1.001-1.035) Urine Protein NEGATIVE (NEGATIVE) mg/dL Urine Glucose (UA) >=1000 (NEGATIVE) mg/dL Urine Ketones 15 H (NEGATIVE) mg/dL Urine Occult Blood NEGATIVE (NEGATIVE) Urine Nitrite NEGATIVE (NEGATIVE) Urine Bilirubin NEGATIVE (NEGATIVE) Urine Urobilinogen 0.2 (<2.0) EU/dL Ur Leukocyte Esterase NEGATIVE (NEGATIVE) Urine RBC 0-2 (0-2/HPF) Urine WBC 0-2 (0-5/HPF) Ur Epithelial Cells RARE (NONE-FEW) Urine Bacteria FEW (NEGATIVE) Influenza Type A RNA NEGATIVE (NEGATIVE) Influenza Type B RNA NEGATIVE (NEGATIVE) SARS-CoV-2 RNA (MATT) NEGATIVE (NEGATIVE) Result Diagrams: 07/29/20 09:43 07/29/20 09:43 Sepsis Event Note - Evaluation Sepsis Screening Result: Possible Sepsis Risk - Focused Exam Vital Signs: Vital Signs Temp Temp Pulse Resp BP Pulse Ox 07/29/20 13:40 115 H 20 116/86 94 L 07/29/20 13:35 100.0 F 07/29/20 13:07 103 H 84/53 L 94 L 07/29/20 12:53 121 H 94/58 L 96 07/29/20 12:37 116 H 85/50 L 93 L 07/29/20 12:29 104 H 83/42 L 94 L 07/29/20 11:57 119 H 86/52 L 93 L 07/29/20 11:42 107 H 91/55 L 94 L 07/29/20 11:27 107 H 85/52 L 94 L 07/29/20 10:53 112 H 97/56 L 94 L 07/29/20 10:39 127 H 90/53 L 94 L 07/29/20 10:23 114 H 85/47 L 94 L 07/29/20 10:13 104 H 72/44 L 96 07/29/20 09:57 107 H 89/49 L 95 07/29/20 09:47 100.4 F 118 H 20 99/57 L 96 Problem List Initiated/Reviewed/Updated: Yes Orders Last 24hrs: Active Orders 24 hr Category Date Time Status Admission Status [Patient Status] [ADT] Stat ADT 07/29/20 14:02 Active Cardiac Monitoring [RC] CONTINUOUS Care 07/29/20 09:42 Active EKG Documentation Completion [RC] STAT Care 07/29/20 09:41 Active Overnight Pulse Oximetry [RC] Click to Edit Care 07/29/20 09:43 Active CULTURE BLOOD [BC] Stat Lab 07/29/20 09:43 Received CULTURE BLOOD [BC] Stat Lab 07/29/20 09:57 Received STOOL CULTURE/SHIGA TOXIN [MREF] Stat Lab 07/29/20 13:15 Received Lactated Ringers [Ringers, Lactated] 1,000 ml Med 07/29/20 10:00 Active IV ASDIRECTED Lactated Ringers [Ringers, Lactated] 1,000 ml Med 07/29/20 10:00 Active IV ASDIRECTED Pharmacy to Dose - Vancomycin Med 07/29/20 10:00 Active 1 dose .XX ASDIRECTED Sodium Chloride 0.9% [Saline Flush] Med 07/29/20 09:41 Active 10 ml FLUSH ASDIRECTED PRN Sodium Chloride 0.9% [Saline Flush] Med 07/29/20 09:41 Active 2.5 ml FLUSH ASDIRECTED PRN Blood Culture x2 Reflex Set [OM.PC] Stat Oth 07/29/20 09:41 Ordered Pulse Oximetry Continuous Monitoring [OM.PC] Routine Oth 07/29/20 09:41 Ordered Saline Lock Insert [OM.PC] Stat Oth 07/29/20 09:41 Ordered Severe Sepsis Onset Time [OM.PC] Stat Oth 07/29/20 09:41 Ordered Medication Orders Lactated Ringer's (Ringers, Lactated) 1,000 mls @ 999 mls/hr IV ASDIRECTED [facility] Last Admin: 07/29/20 09:52 Dose: 999 mls/hr Documented by: [email or web address] Lactated Ringer's (Ringers, Lactated) 1,000 mls @ 500 mls/hr IV ASDIRECTED [facility] Last Admin: 07/29/20 09:53 Dose: 500 mls/hr Documented by: [id number] Sodium Chloride (Saline Flush) 10 ml FLUSH ASDIRECTED PRN PRN Reason: Keep Vein Open Last Admin: 07/29/20 09:53 Dose: 10 ml Documented by: LUANN Sodium Chloride (Saline Flush) 2.5 ml FLUSH ASDIRECTED PRN PRN Reason: Keep Vein Open Last Admin: 07/29/20 09:53 Dose: 2.5 ml Documented by: LUANN Vancomycin HCl (Pharmacy To Dose - Vancomycin) 1 dose .XX ASDIRECTED [facility] Assessment/Plan Comment:: Assessment: 1. Sepsis in setting of right lower extremity cellulitis 2.. Hyponatremia: chronic /moderate 3. Past medical history of chronic atrial fibrillation on anticoagulation, hypertension, type 2 diabetes, morbid obesity, congestive heart failure Plan Admit to inpatient. Full code. I's and O's strict. Diabetic diet. Up with assistance. 1. Sepsis in setting of right lower extremity cellulitis: received 1 L of fluid and currently afebrile and rate controlled. We will continue vancomycin and Zosyn. Blood cultures ordered; will follow up with blood cultures when available. CT lower extremity did not suggest necrotizing/fasciitis; no gas noted in tissue. 2. Hyponatremia.: chronic (secondary to unknown duration)/ moderate (120-130 w/o symptoms); Recheck BMP in AM. AO x 4. No AMS. Received 1 liter bolus in ED; recheck BMP in AM 3. DM II: hold home meds :hold trulicity, Jardiance; Start SSI : medium corrective dose A1c added on to labs 4. CHD/HTN: continue home meds including Eliquis BP checks q 4 hours COVID and influenza negative <Ilene Corcoran - Last Filed: 07/30/20 20:48> H&P History of Present Illness - General Admit Problem/Dx: Admission Diagnosis/Problem Admission Diagnosis/Problem Sepsis Exam - Vital Signs Vital Signs: Last Vital Signs Temp 36.7 C 07/30/20 18:27 Pulse 116 H 07/30/20 20:13 Resp 16 07/30/20 18:27 BP 109/66 07/30/20 20:13 Pulse Ox 94 L 07/30/20 18:27 - Patient Data Lab Results Last 24 hrs: Laboratory Results - last 24 hr 07/29/20 07/29/20 07/29/20 Range/Units 09:43 09:43 09:43 WBC 9.40 (4.0-11.0) K/uL RBC 4.59 (4.50-5.90) M/uL Hgb 13.3 (13.0-17.0) g/dL Hct 40.3 (38.0-50.0) % MCV 87.8 (80.0-98.0) fL MCH 29.0 (27.0-32.0) pg MCHC 33.0 (31.0-37.0) g/dL RDW Std Deviation 50.6 (28.0-62.0) fl RDW Coeff of Conchita 16 H (11.0-15.0) % Plt Count 101 L (150-400) K/uL MPV 9.00 (7.40-12.00) fL Add Manual Diff YES Neutrophils % (Manual) 43 L (48.0-80.0) % Band Neutrophils % 36 % Lymphocytes % (Manual) 15 L (16.0-40.0) % Monocytes % (Manual) 6 (0.0-15.0) % Metamyelocytes % % Nucleated RBC % 0.0 /100WBC Absolute Seg Neuts 4.0 (1.4-5.7) Band Neutrophils # 3.4 Lymphocytes # (Manual) 1.4 (0.6-2.4) Monocytes # (Manual) 0.6 (0.0-0.8) Absolute Metamyelocyte Nucleated RBCs # 0 K/uL Reactive Lymphocytes MODERATE Vacuolated Monocytes MODERATE INR 1.68 Lactate 1.3 (0.20-2.00) mmol/L Sodium (136-148) mmol/L Potassium (3.5-5.1) mmol/L Chloride (98-107) mmol/L Carbon Dioxide (21.0-32.0) mmol/L BUN (7.0-18.0) mg/dL Creatinine (0.8-1.3) mg/dL Est Cr Clr Drug Dosing mL/min Estimated GFR (MDRD) ml/min Glucose (74-106) mg/dL POC Glucose (60-110) mg/dL Calcium (8.5-10.1) mg/dL Total Bilirubin (0.2-1.0) mg/dL AST (15-37) IU/L ALT (14-63) IU/L Alkaline Phosphatase (46-116) U/L Troponin I (0.000-0.056) ng/mL Total Protein (6.4-8.2) g/dL Albumin (3.4-5.0) g/dL Globulin (2.6-4.0) g/dL Albumin/Globulin Ratio (0.9-1.6) 07/29/20 07/29/20 07/30/20 Range/Units 09:43 21:10 04:45 WBC 10.26 (4.0-11.0) K/uL RBC 4.62 (4.50-5.90) M/uL Hgb 13.2 (13.0-17.0) g/dL Hct 40.6 (38.0-50.0) % MCV 87.9 (80.0-98.0) fL MCH 28.6 (27.0-32.0) pg MCHC 32.5 (31.0-37.0) g/dL RDW Std Deviation 50.4 (28.0-62.0) fl RDW Coeff of Conchita 16 H (11.0-15.0) % Plt Count 101 L (150-400) K/uL MPV 9.00 (7.40-12.00) fL Add Manual Diff YES Neutrophils % (Manual) 47 L (48.0-80.0) % Band Neutrophils % 38 % Lymphocytes % (Manual) 14 L (16.0-40.0) % Monocytes % (Manual) (0.0-15.0) % Metamyelocytes % 1 % Nucleated RBC % 0.0 /100WBC Absolute Seg Neuts 4.8 (1.4-5.7) Band Neutrophils # 3.9 Lymphocytes # (Manual) 1.4 (0.6-2.4) Monocytes # (Manual) (0.0-0.8) Absolute Metamyelocyte 0.1 Nucleated RBCs # 0 K/uL Reactive Lymphocytes Vacuolated Monocytes INR Lactate (0.20-2.00) mmol/L Sodium 125 L (136-148) mmol/L Potassium 3.7 (3.5-5.1) mmol/L Chloride 92 L (98-107) mmol/L Carbon Dioxide 17.8 L (21.0-32.0) mmol/L BUN 24 H (7.0-18.0) mg/dL Creatinine 1.0 (0.8-1.3) mg/dL Est Cr Clr Drug Dosing 85.45 mL/min Estimated GFR (MDRD) > 60.0 ml/min Glucose 161 H (74-106) mg/dL POC Glucose 112 H (60-110) mg/dL Calcium 8.1 L (8.5-10.1) mg/dL Total Bilirubin 1.0 (0.2-1.0) mg/dL AST 17 (15-37) IU/L ALT 18 (14-63) IU/L Alkaline Phosphatase 49 (46-116) U/L Troponin I < 0.050 (0.000-0.056) ng/mL Total Protein 6.2 L (6.4-8.2) g/dL Albumin 2.7 L (3.4-5.0) g/dL Globulin 3.5 (2.6-4.0) g/dL Albumin/Globulin Ratio 0.8 L (0.9-1.6) 07/30/20 07/30/20 07/30/20 Range/Units 04:45 06:35 11:33 WBC (4.0-11.0) K/uL RBC (4.50-5.90) M/uL Hgb (13.0-17.0) g/dL Hct (38.0-50.0) % MCV (80.0-98.0) fL MCH (27.0-32.0) pg MCHC (31.0-37.0) g/dL RDW Std Deviation (28.0-62.0) fl RDW Coeff of Conchita (11.0-15.0) % Plt Count (150-400) K/uL MPV (7.40-12.00) fL Add Manual Diff Neutrophils % (Manual) (48.0-80.0) % Band Neutrophils % % Lymphocytes % (Manual) (16.0-40.0) % Monocytes % (Manual) (0.0-15.0) % Metamyelocytes % % Nucleated RBC % /100WBC Absolute Seg Neuts (1.4-5.7) Band Neutrophils # Lymphocytes # (Manual) (0.6-2.4) Monocytes # (Manual) (0.0-0.8) Absolute Metamyelocyte Nucleated RBCs # K/uL Reactive Lymphocytes Vacuolated Monocytes INR Lactate (0.20-2.00) mmol/L Sodium 126 L (136-148) mmol/L Potassium 3.9 (3.5-5.1) mmol/L Chloride 90 L (98-107) mmol/L Carbon Dioxide 21.6 (21.0-32.0) mmol/L BUN 20 H (7.0-18.0) mg/dL Creatinine 0.9 (0.8-1.3) mg/dL Est Cr Clr Drug Dosing 94.94 mL/min Estimated GFR (MDRD) > 60.0 ml/min Glucose 122 H (74-106) mg/dL POC Glucose 111 H 148 H (60-110) mg/dL Calcium 8.7 (8.5-10.1) mg/dL Total Bilirubin 1.1 H (0.2-1.0) mg/dL AST 37 (15-37) IU/L ALT 23 (14-63) IU/L Alkaline Phosphatase 50 (46-116) U/L Troponin I (0.000-0.056) ng/mL Total Protein 6.7 (6.4-8.2) g/dL Albumin 2.6 L (3.4-5.0) g/dL Globulin 4.1 H (2.6-4.0) g/dL Albumin/Globulin Ratio 0.6 L (0.9-1.6) 07/30/20 07/30/20 Range/Units 16:09 17:41 WBC (4.0-11.0) K/uL RBC (4.50-5.90) M/uL Hgb (13.0-17.0) g/dL Hct (38.0-50.0) % MCV (80.0-98.0) fL MCH (27.0-32.0) pg MCHC (31.0-37.0) g/dL RDW Std Deviation (28.0-62.0) fl RDW Coeff of Conchita (11.0-15.0) % Plt Count (150-400) K/uL MPV (7.40-12.00) fL Add Manual Diff Neutrophils % (Manual) (48.0-80.0) % Band Neutrophils % % Lymphocytes % (Manual) (16.0-40.0) % Monocytes % (Manual) (0.0-15.0) % Metamyelocytes % % Nucleated RBC % /100WBC Absolute Seg Neuts (1.4-5.7) Band Neutrophils # Lymphocytes # (Manual) (0.6-2.4) Monocytes # (Manual) (0.0-0.8) Absolute Metamyelocyte Nucleated RBCs # K/uL Reactive Lymphocytes Vacuolated Monocytes INR Lactate (0.20-2.00) mmol/L Sodium 124 L (136-148) mmol/L Potassium 3.5 (3.5-5.1) mmol/L Chloride 88 L (98-107) mmol/L Carbon Dioxide 20.0 L (21.0-32.0) mmol/L BUN 23 H (7.0-18.0) mg/dL Creatinine 0.9 (0.8-1.3) mg/dL Est Cr Clr Drug Dosing 94.94 mL/min Estimated GFR (MDRD) > 60.0 ml/min Glucose 145 H (74-106) mg/dL POC Glucose 138 H (60-110) mg/dL Calcium 8.8 (8.5-10.1) mg/dL Total Bilirubin (0.2-1.0) mg/dL AST (15-37) IU/L ALT (14-63) IU/L Alkaline Phosphatase (46-116) U/L Troponin I (0.000-0.056) ng/mL Total Protein (6.4-8.2) g/dL Albumin (3.4-5.0) g/dL Globulin (2.6-4.0) g/dL Albumin/Globulin Ratio (0.9-1.6) Result Diagrams: 07/30/20 04:45 07/30/20 16:09 Myron Results Last 24 hrs: Microbiology 07/29/20 13:15 Shiga Toxin I & II - Final Stool / Feces 07/29/20 09:57 Aerobic Blood Culture - Preliminary Blood - Venous - Lab Draw Anaerobic Blood Culture - Preliminary NO GROWTH AFTER 1 DAY 07/29/20 09:43 Aerobic Blood Culture - Preliminary Blood - Venous NO GROWTH AFTER 1 DAY Anaerobic Blood Culture - Preliminary NO GROWTH AFTER 1 DAY Sepsis Event Note - Focused Exam Vital Signs: Vital Signs Temp Pulse Pulse Resp BP BP Pulse Ox 07/30/20 20:13 116 H 109/66 07/30/20 18:27 36.7 C 117 H 16 118/64 94 L 07/30/20 15:04 36.7 C 101 H 20 117/75 97 07/30/20 15:00 37.0 C 120 H 20 130/63 94 L 07/30/20 11:39 36.8 C 115 H 20 120/83 98 07/30/20 10:23 120 H 136/77 07/30/20 10:21 120 H 236/77 H - Problem List (1) Hyponatremia SNOMED Code(s): 75470832 ICD Code: E87.1 - HYPO-OSMOLALITY AND HYPONATREMIA Status: Acute Current Visit: Yes (2) Diabetes SNOMED Code(s): 92836396 ICD Code: E11.9 - TYPE 2 DIABETES MELLITUS WITHOUT COMPLICATIONS Status: Acute Current Visit: Yes (3) Cellulitis SNOMED Code(s): 571153850 ICD Code: L03.90 - CELLULITIS, UNSPECIFIED Status: Acute Current Visit: Yes (4) Afib SNOMED Code(s): 38134939 ICD Code: I48.91 - UNSPECIFIED ATRIAL FIBRILLATION Status: Acute Current Visit: Yes (5) Heart failure SNOMED Code(s): 50546014 ICD Code: I50.9 - HEART FAILURE, UNSPECIFIED Status: Acute Current Visit: Yes (6) Foot ulcer SNOMED Code(s): 39406115 ICD Code: L97.509 - NON-PRESSURE CHRONIC ULCER OTH PRT UNSP FOOT W UNSP SEVERITY Status: Acute Current Visit: Yes Orders Last 24hrs: Active Orders 24 hr Category Date Time Status RT Aerosol Therapy [RC] ASDIRECTED Care 07/30/20 09:38 Active CBC WITH AUTO DIFF [HEME] AM Lab 07/31/20 05:11 Ordered CBC WITH AUTO DIFF [HEME] AM Lab 08/01/20 05:11 Ordered COMPREHENSIVE METABOLIC PN,CMP [CHEM] AM Lab 07/31/20 05:11 Ordered COMPREHENSIVE METABOLIC PN,CMP [CHEM] AM Lab 08/01/20 05:11 Ordered OSMOLALITY - SERUM [REF] Routine Lab 07/29/20 19:58 Received VANCOMYCIN TROUGH [CHEM] Routine Lab 07/31/20 11:00 Ordered Acetaminophen [Tylenol Extra Strength] Med 07/30/20 09:27 Active 500 mg PO Q6H PRN Albuterol/Ipratropium [DuoNeb 3.0-0.5 MG/3 ML] Med 07/30/20 09:37 Active 3 ml NEB Q4HRRT PRN Apixaban [Eliquis] Med 07/29/20 21:00 Active 5 mg PO BID Nystatin [Nystop] Med 07/30/20 14:00 Active 1 gm TOP TID VANCOmycin/Water for INJ (PEG) [VANCOmycin 1.5 GM/300 Med 07/29/20 23:30 Active ML Premix] 1.5 gm Premix Bag 1 bag IV Q12H carvediloL [Coreg] Med 07/29/20 21:00 Active 25 mg PO BID lisinopriL [Prinivil] Med 07/30/20 09:00 Active 10 mg PO DAILY oxyCODONE Med 07/30/20 09:36 Active 5 mg PO Q8H PRN Medication Orders Acetaminophen (Tylenol Extra Strength) 500 mg PO Q6H PRN PRN Reason: Pain Last Admin: 07/30/20 19:45 Dose: 500 mg Documented by: GRACIE Albuterol/Ipratropium (Duoneb 3.0-0.5 Mg/3 Ml) 3 ml NEB Q4HRRT PRN PRN Reason: dyspnea/wheezing Last Admin: 07/30/20 15:03 Dose: 3 ml Documented by: GEORGINA Apixaban (Eliquis) 5 mg PO BID GAEL Last Admin: 07/30/20 20:23 Dose: 5 mg Documented by: Admin: 07/30/20 10:18 Dose: 5 mg Documented by: Admin: 07/29/20 20:57 Dose: 5 mg Documented by: BAILEY Carvedilol (Coreg) 25 mg PO BID [facility] Last Admin: 07/30/20 20:13 Dose: 25 mg Documented by: Admin: 07/30/20 10:23 Dose: 25 mg Documented by: Admin: 07/29/20 20:57 Dose: 25 mg Documented by: BAILEY Dextrose/Water (Dextrose 50% In Water) 50 ml IV ASDIRECTED PRN PRN Reason: Hypoglycemia Diltiazem HCl (Cardizem Cd) 120 mg PO DAILY [facility] Last Admin: 07/30/20 10:21 Dose: 120 mg Documented by: Admin: 07/29/20 17:22 Dose: 120 mg Documented by: NANCY Diltiazem HCl (Diltiazem) 20 mg IVPUSH Q6H PRN PRN Reason: Tachycardia Last Admin: 07/30/20 17:51 Dose: 20 mg Documented by: Admin: 07/30/20 04:02 Dose: 20 mg Documented by: Admin: 07/29/20 21:46 Dose: 20 mg Documented by: BAILEY Glucagon (Glucagen) 1 mg IM ASDIRECTED PRN PRN Reason: Hypoglycemia Lactated Ringer's (Ringers, Lactated) 1,000 mls @ 999 mls/hr IV ASDIRECTED [facility] Last Admin: 07/29/20 09:52 Dose: 999 mls/hr Documented by: LUANN Lactated Ringer's (Ringers, Lactated) 1,000 mls @ 500 mls/hr IV ASDIRECTED [facility] Last Admin: 07/29/20 09:53 Dose: 500 mls/hr Documented by: LUANN Piperacillin Sod/Tazobactam (Sod 4.5 gm/ Sodium Chloride) 100 mls @ 100 mls/hr IV Q6H [facility] Last Admin: 07/30/20 17:43 Dose: 100 mls/hr Documented by: Infusion: 07/30/20 14:16 Dose: 100 mls/hr Documented by: Admin: 07/30/20 13:16 Dose: 100 mls/hr Documented by: Infusion: 07/30/20 06:20 Dose: 100 mls/hr Documented by: Admin: 07/30/20 05:20 Dose: 100 mls/hr Documented by: Infusion: 07/30/20 00:41 Dose: 100 mls/hr Documented by: Admin: 07/29/20 23:41 Dose: 100 mls/hr Documented by: Infusion: 07/29/20 18:48 Dose: 100 mls/hr Documented by: Admin: 07/29/20 17:48 Dose: 100 mls/hr Documented by: NANCY Vancomycin HCl 1.5 gm/ Premix 300 mls @ 200 mls/hr IV Q12H [facility] Last Admin: 07/30/20 11:22 Dose: 200 mls/hr Documented by: Infusion: 07/30/20 02:12 Dose: 200 mls/hr Documented by: Admin: 07/30/20 00:42 Dose: 200 mls/hr Documented by: BAILEY Insulin Aspart (Novolog) [facility]; Protocol Last Admin: 07/30/20 17:52 Dose: Not Given Documented by: Admin: 07/30/20 12:49 Dose: Not Given Documented by: Admin: 07/30/20 10:24 Dose: Not Given Documented by: Admin: 07/29/20 17:35 Dose: Not Given Documented by: NANCY Lisinopril (Prinivil) 10 mg PO DAILY [facility] Last Admin: 07/30/20 10:23 Dose: 10 mg Documented by: CARL Nystatin (Nystop) 1 gm TOP TID [facility] Last Admin: 07/30/20 15:43 Dose: 1 bottle Documented by: CARL Oxycodone HCl (Oxycodone) 5 mg PO Q8H PRN PRN Reason: Pain Sodium Chloride (Saline Flush) 10 ml FLUSH ASDIRECTED PRN PRN Reason: Keep Vein Open Last Admin: 07/29/20 09:53 Dose: 10 ml Documented by: LUANN Sodium Chloride (Saline Flush) 2.5 ml FLUSH ASDIRECTED PRN PRN Reason: Keep Vein Open Last Admin: 07/29/20 09:53 Dose: 2.5 ml Documented by: LUANN Sodium Chloride ([place] Saline Nasal Gel) 0 gm SCOTT ASDIRECTED PRN PRN Reason: Nasal Dryness Last Admin: 07/29/20 21:54 Dose: 1 spray Documented by: BAILEY Vancomycin HCl (Pharmacy To Dose - Vancomycin) 1 dose .XX ASDIRECTED GAEL Assessment/Plan Comment:: I performed a history and physical exam of the patient and discussed management with resident. I have reviewed the residents note and agree with documented find ings and plan unless otherwise specified in my note.'
[2020-07-29] MEDS ORDERED: Glucagon,Human Recombinant 1 MG Vial IM PRN (15:11)
[2020-07-29] MEDS ORDERED: 50% Dextrose in Water 50 ML Syringe IV PRN (15:11)
[2020-07-29 15:33] LABS: HEMOGLOBIN A1C 6.8 %
[2020-07-29] MEDS ORDERED: Aloe Vera/Sodium Chloride Gel 14.1 GM Tube NAS PRN (15:38)
[2020-07-29] MEDS: Diltiazem 120 MG Cap.CD PO SCH (17:22)
[2020-07-29] MEDS: Insulin Aspart 100 Units/ML 3 ML Pen SUBCUT SCH (17:35)
[2020-07-29] MEDS: Piperacillin/Tazobactam 4.5 GM in Sodium Chloride 0.9% 100 ML IV SCH ×2 (17:48→23:41)
[2020-07-29] MEDS ORDERED: Sodium Chloride 0.9% 1,000 ML IV ONE (18:52)
[2020-07-29] MEDS: Apixaban 5 MG Tab PO SCH (20:57)
[2020-07-29] MEDS: Carvedilol 25 MG Tab PO SCH (20:57)
[2020-07-29] MEDS ORDERED: Morphine 2 MG/ML SYRINGE IVPUSH ONE (21:34)
[2020-07-29] MEDS: Diltiazem 25 MG/5 ML SDV IVPUSH PRN (21:46)
[2020-07-30] MEDS: Diltiazem 25 MG/5 ML SDV IVPUSH PRN ×2 (04:02→17:51)
[2020-07-30] MEDS: Piperacillin/Tazobactam 4.5 GM in Sodium Chloride 0.9% 100 ML IV SCH ×4 (05:20→23:25)
[2020-07-30 05:57] LABS: BLOOD UREA NITROGEN,BUN 20 mg/dL (7.0-18.0); CARBON DIOXIDE,CO2 21.6 mmol/L (21.0-32.0); CHLORIDE,CL 90 mmol/L (98-107); GLUCOSE RANDOM 122 mg/dL (74-106); POTASSIUM,K 3.9 mmol/L (3.5-5.1); SODIUM,NA 126 mmol/L (136-148)
[2020-07-30] MEDS ORDERED: Spironolactone 25 MG Tab PO SCH (09:00)
[2020-07-30] MEDS ORDERED: Furosemide 20 MG Tab PO SCH (09:00)
[2020-07-30] MEDS ORDERED: Sodium Chloride 0.9% 500 ML IV STA (09:34)
[2020-07-30] MEDS: Apixaban 5 MG Tab PO SCH ×2 (10:18→20:23)
[2020-07-30] MEDS: Diltiazem 120 MG Cap.CD PO SCH (10:21)
[2020-07-30] MEDS: Lisinopril 10 MG Tab PO SCH (10:23)
[2020-07-30] MEDS: Carvedilol 25 MG Tab PO SCH ×2 (10:23→20:13)
[2020-07-30] MEDS: Insulin Aspart 100 Units/ML 3 ML Pen SUBCUT SCH ×3 (10:24→17:52)
--- NOTE | 2020-07-30 12:22 | PCM.PN ---
<Roshan Ahktar - Last Filed: 07/30/20 12:24> - General Info Date of Service: 07/30/20 Subjective Update: Patient states feeling better but still fatigued. Mentions pain in lower extremity nad low back is the same and has not improved. - Review of Systems General: Reports: Fatigue. Denies: Fever HEENT: Reports: No Symptoms Pulmonary: Reports: Wheezing. Denies: Shortness of Breath, Pleuritic Chest Pain , Cough, Sputum Cardiovascular: Reports: Edema. Denies: Chest Pain, Palpitations, Dyspnea on Exertion Gastrointestinal: Reports: Diarrhea. Denies: Abdominal Pain, Constipation, Nausea, Vomiting Genitourinary: Reports: No Symptoms Musculoskeletal: Reports: Back Pain Skin: Reports: Rash (groin) Neurological: Denies: Confusion, Dizziness, Headache Psychiatric: Denies: Mood Lability, Anxiety - Patient Data Vitals - Most Recent: Last Vital Signs Temp 98.2 F 07/30/20 11:39 Pulse 115 H 07/30/20 11:39 Resp 20 07/30/20 11:39 BP 120/83 07/30/20 11:39 Pulse Ox 98 07/30/20 11:39 Weight - Most Recent: 144.299 kg I&O - Last 24 Hours: Intake & Output 07/29/20 07/30/20 07/30/20 22:59 06:59 14:59 Intake Total 0 2200 Output Total 700 Balance 0 1500 Lab Results Last 24 Hours: Laboratory Results - last 24 hr 07/29/20 07/29/20 07/29/20 Range/Units 09:43 09:43 09:43 WBC 9.40 (4.0-11.0) K/uL RBC 4.59 (4.50-5.90) M/uL Hgb 13.3 (13.0-17.0) g/dL Hct 40.3 (38.0-50.0) % MCV 87.8 (80.0-98.0) fL MCH 29.0 (27.0-32.0) pg MCHC 33.0 (31.0-37.0) g/dL RDW Std Deviation 50.6 (28.0-62.0) fl RDW Coeff of Conchita 16 H (11.0-15.0) % Plt Count 101 L (150-400) K/uL MPV 9.00 (7.40-12.00) fL Add Manual Diff YES Neutrophils % (Manual) 43 L (48.0-80.0) % Band Neutrophils % 36 % Lymphocytes % (Manual) 15 L (16.0-40.0) % Monocytes % (Manual) 6 (0.0-15.0) % Metamyelocytes % % Nucleated RBC % 0.0 /100WBC Absolute Seg Neuts 4.0 (1.4-5.7) Band Neutrophils # 3.4 Lymphocytes # (Manual) 1.4 (0.6-2.4) Monocytes # (Manual) 0.6 (0.0-0.8) Absolute Metamyelocyte Nucleated RBCs # 0 K/uL Reactive Lymphocytes MODERATE Vacuolated Monocytes MODERATE INR 1.68 Lactate 1.3 (0.20-2.00) mmol/L Sodium (136-148) mmol/L Potassium (3.5-5.1) mmol/L Chloride (98-107) mmol/L Carbon Dioxide (21.0-32.0) mmol/L BUN (7.0-18.0) mg/dL Creatinine (0.8-1.3) mg/dL Est Cr Clr Drug Dosing mL/min Estimated GFR (MDRD) ml/min Glucose (74-106) mg/dL POC Glucose (60-110) mg/dL Hemoglobin A1c (4.5 - 6.2) % Calcium (8.5-10.1) mg/dL Total Bilirubin (0.2-1.0) mg/dL AST (15-37) IU/L ALT (14-63) IU/L Alkaline Phosphatase (46-116) U/L Troponin I (0.000-0.056) ng/mL Total Protein (6.4-8.2) g/dL Albumin (3.4-5.0) g/dL Globulin (2.6-4.0) g/dL Albumin/Globulin Ratio (0.9-1.6) Urine Color Urine Appearance Urine pH (5.0-8.0) Ur Specific [place] (1.001-1.035) Urine Protein (NEGATIVE) mg/dL Urine Glucose (UA) (NEGATIVE) mg/dL Urine Ketones (NEGATIVE) mg/dL Urine Occult Blood (NEGATIVE) Urine Nitrite (NEGATIVE) Urine Bilirubin (NEGATIVE) Urine Urobilinogen (<2.0) EU/dL Ur Leukocyte Esterase (NEGATIVE) Urine RBC (0-2/HPF) Urine WBC (0-5/HPF) Ur Epithelial Cells (NONE-FEW) Urine Bacteria (NEGATIVE) Ur Random Sodium (40.0-220.0) mmol/L Influenza Type A RNA (NEGATIVE) Influenza Type B RNA (NEGATIVE) SARS-CoV-2 RNA (MATT) (NEGATIVE) 07/29/20 07/29/20 07/29/20 Range/Units 09:43 09:43 12:05 WBC (4.0-11.0) K/uL RBC (4.50-5.90) M/uL Hgb (13.0-17.0) g/dL Hct (38.0-50.0) % MCV (80.0-98.0) fL MCH (27.0-32.0) pg MCHC (31.0-37.0) g/dL RDW Std Deviation (28.0-62.0) fl RDW Coeff of Conchita (11.0-15.0) % Plt Count (150-400) K/uL MPV (7.40-12.00) fL Add Manual Diff Neutrophils % (Manual) (48.0-80.0) % Band Neutrophils % % Lymphocytes % (Manual) (16.0-40.0) % Monocytes % (Manual) (0.0-15.0) % Metamyelocytes % % Nucleated RBC % /100WBC Absolute Seg Neuts (1.4-5.7) Band Neutrophils # Lymphocytes # (Manual) (0.6-2.4) Monocytes # (Manual) (0.0-0.8) Absolute Metamyelocyte Nucleated RBCs # K/uL Reactive Lymphocytes Vacuolated Monocytes INR Lactate (0.20-2.00) mmol/L Sodium 125 L (136-148) mmol/L Potassium 3.7 (3.5-5.1) mmol/L Chloride 92 L (98-107) mmol/L Carbon Dioxide 17.8 L (21.0-32.0) mmol/L BUN 24 H (7.0-18.0) mg/dL Creatinine 1.0 (0.8-1.3) mg/dL Est Cr Clr Drug Dosing 85.45 mL/min Estimated GFR (MDRD) > 60.0 ml/min Glucose 161 H (74-106) mg/dL POC Glucose (60-110) mg/dL Hemoglobin A1c 6.8 H (4.5 - 6.2) % Calcium 8.1 L (8.5-10.1) mg/dL Total Bilirubin 1.0 (0.2-1.0) mg/dL AST 17 (15-37) IU/L ALT 18 (14-63) IU/L Alkaline Phosphatase 49 (46-116) U/L Troponin I < 0.050 (0.000-0.056) ng/mL Total Protein 6.2 L (6.4-8.2) g/dL Albumin 2.7 L (3.4-5.0) g/dL Globulin 3.5 (2.6-4.0) g/dL Albumin/Globulin Ratio 0.8 L (0.9-1.6) Urine Color Urine Appearance Urine pH (5.0-8.0) Ur Specific [place] (1.001-1.035) Urine Protein (NEGATIVE) mg/dL Urine Glucose (UA) (NEGATIVE) mg/dL Urine Ketones (NEGATIVE) mg/dL Urine Occult Blood (NEGATIVE) Urine Nitrite (NEGATIVE) Urine Bilirubin (NEGATIVE) Urine Urobilinogen (<2.0) EU/dL Ur Leukocyte Esterase (NEGATIVE) Urine RBC (0-2/HPF) Urine WBC (0-5/HPF) Ur Epithelial Cells (NONE-FEW) Urine Bacteria (NEGATIVE) Ur Random Sodium (40.0-220.0) mmol/L Influenza Type A RNA NEGATIVE (NEGATIVE) Influenza Type B RNA NEGATIVE (NEGATIVE) SARS-CoV-2 RNA (MATT) NEGATIVE (NEGATIVE) 07/29/20 07/29/20 07/29/20 Range/Units 13:13 13:13 17:14 WBC (4.0-11.0) K/uL RBC (4.50-5.90) M/uL Hgb (13.0-17.0) g/dL Hct (38.0-50.0) % MCV (80.0-98.0) fL MCH (27.0-32.0) pg MCHC (31.0-37.0) g/dL RDW Std Deviation (28.0-62.0) fl RDW Coeff of Conchita (11.0-15.0) % Plt Count (150-400) K/uL MPV (7.40-12.00) fL Add Manual Diff Neutrophils % (Manual) (48.0-80.0) % Band Neutrophils % % Lymphocytes % (Manual) (16.0-40.0) % Monocytes % (Manual) (0.0-15.0) % Metamyelocytes % % Nucleated RBC % /100WBC Absolute Seg Neuts (1.4-5.7) Band Neutrophils # Lymphocytes # (Manual) (0.6-2.4) Monocytes # (Manual) (0.0-0.8) Absolute Metamyelocyte Nucleated RBCs # K/uL Reactive Lymphocytes Vacuolated Monocytes INR Lactate (0.20-2.00) mmol/L Sodium (136-148) mmol/L Potassium (3.5-5.1) mmol/L Chloride (98-107) mmol/L Carbon Dioxide (21.0-32.0) mmol/L BUN (7.0-18.0) mg/dL Creatinine (0.8-1.3) mg/dL Est Cr Clr Drug Dosing mL/min Estimated GFR (MDRD) ml/min Glucose (74-106) mg/dL POC Glucose 117 H (60-110) mg/dL Hemoglobin A1c (4.5 - 6.2) % Calcium (8.5-10.1) mg/dL Total Bilirubin (0.2-1.0) mg/dL AST (15-37) IU/L ALT (14-63) IU/L Alkaline Phosphatase (46-116) U/L Troponin I (0.000-0.056) ng/mL Total Protein (6.4-8.2) g/dL Albumin (3.4-5.0) g/dL Globulin (2.6-4.0) g/dL Albumin/Globulin Ratio (0.9-1.6) Urine Color YELLOW Urine Appearance CLEAR Urine pH 5.5 (5.0-8.0) Ur Specific [place] 1.010 (1.001-1.035) Urine Protein NEGATIVE (NEGATIVE) mg/dL Urine Glucose (UA) >=1000 (NEGATIVE) mg/dL Urine Ketones 15 H (NEGATIVE) mg/dL Urine Occult Blood NEGATIVE (NEGATIVE) Urine Nitrite NEGATIVE (NEGATIVE) Urine Bilirubin NEGATIVE (NEGATIVE) Urine Urobilinogen 0.2 (<2.0) EU/dL Ur Leukocyte Esterase NEGATIVE (NEGATIVE) Urine RBC 0-2 (0-2/HPF) Urine WBC 0-2 (0-5/HPF) Ur Epithelial Cells RARE (NONE-FEW) Urine Bacteria FEW (NEGATIVE) Ur Random Sodium 4.0 L (40.0-220.0) mmol/L Influenza Type A RNA (NEGATIVE) Influenza Type B RNA (NEGATIVE) SARS-CoV-2 RNA (MATT) (NEGATIVE) 07/29/20 07/30/20 07/30/20 Range/Units 21:10 04:45 04:45 WBC 10.26 (4.0-11.0) K/uL RBC 4.62 (4.50-5.90) M/uL Hgb 13.2 (13.0-17.0) g/dL Hct 40.6 (38.0-50.0) % MCV 87.9 (80.0-98.0) fL MCH 28.6 (27.0-32.0) pg MCHC 32.5 (31.0-37.0) g/dL RDW Std Deviation 50.4 (28.0-62.0) fl RDW Coeff of Conchita 16 H (11.0-15.0) % Plt Count 101 L (150-400) K/uL MPV 9.00 (7.40-12.00) fL Add Manual Diff YES Neutrophils % (Manual) 47 L (48.0-80.0) % Band Neutrophils % 38 % Lymphocytes % (Manual) 14 L (16.0-40.0) % Monocytes % (Manual) (0.0-15.0) % Metamyelocytes % 1 % Nucleated RBC % 0.0 /100WBC Absolute Seg Neuts 4.8 (1.4-5.7) Band Neutrophils # 3.9 Lymphocytes # (Manual) 1.4 (0.6-2.4) Monocytes # (Manual) (0.0-0.8) Absolute Metamyelocyte 0.1 Nucleated RBCs # 0 K/uL Reactive Lymphocytes Vacuolated Monocytes INR Lactate (0.20-2.00) mmol/L Sodium 126 L (136-148) mmol/L Potassium 3.9 (3.5-5.1) mmol/L Chloride 90 L (98-107) mmol/L Carbon Dioxide 21.6 (21.0-32.0) mmol/L BUN 20 H (7.0-18.0) mg/dL Creatinine 0.9 (0.8-1.3) mg/dL Est Cr Clr Drug Dosing 94.94 mL/min Estimated GFR (MDRD) > 60.0 ml/min Glucose 122 H (74-106) mg/dL POC Glucose 112 H (60-110) mg/dL Hemoglobin A1c (4.5 - 6.2) % Calcium 8.7 (8.5-10.1) mg/dL Total Bilirubin 1.1 H (0.2-1.0) mg/dL AST 37 (15-37) IU/L ALT 23 (14-63) IU/L Alkaline Phosphatase 50 (46-116) U/L Troponin I (0.000-0.056) ng/mL Total Protein 6.7 (6.4-8.2) g/dL Albumin 2.6 L (3.4-5.0) g/dL Globulin 4.1 H (2.6-4.0) g/dL Albumin/Globulin Ratio 0.6 L (0.9-1.6) Urine Color Urine Appearance Urine pH (5.0-8.0) Ur Specific [place] (1.001-1.035) Urine Protein (NEGATIVE) mg/dL Urine Glucose (UA) (NEGATIVE) mg/dL Urine Ketones (NEGATIVE) mg/dL Urine Occult Blood (NEGATIVE) Urine Nitrite (NEGATIVE) Urine Bilirubin (NEGATIVE) Urine Urobilinogen (<2.0) EU/dL Ur Leukocyte Esterase (NEGATIVE) Urine RBC (0-2/HPF) Urine WBC (0-5/HPF) Ur Epithelial Cells (NONE-FEW) Urine Bacteria (NEGATIVE) Ur Random Sodium (40.0-220.0) mmol/L Influenza Type A RNA (NEGATIVE) Influenza Type B RNA (NEGATIVE) SARS-CoV-2 RNA (MATT) (NEGATIVE) 07/30/20 07/30/20 Range/Units 06:35 11:33 WBC (4.0-11.0) K/uL RBC (4.50-5.90) M/uL Hgb (13.0-17.0) g/dL Hct (38.0-50.0) % MCV (80.0-98.0) fL MCH (27.0-32.0) pg MCHC (31.0-37.0) g/dL RDW Std Deviation (28.0-62.0) fl RDW Coeff of Conchita (11.0-15.0) % Plt Count (150-400) K/uL MPV (7.40-12.00) fL Add Manual Diff Neutrophils % (Manual) (48.0-80.0) % Band Neutrophils % % Lymphocytes % (Manual) (16.0-40.0) % Monocytes % (Manual) (0.0-15.0) % Metamyelocytes % % Nucleated RBC % /100WBC Absolute Seg Neuts (1.4-5.7) Band Neutrophils # Lymphocytes # (Manual) (0.6-2.4) Monocytes # (Manual) (0.0-0.8) Absolute Metamyelocyte Nucleated RBCs # K/uL Reactive Lymphocytes Vacuolated Monocytes INR Lactate (0.20-2.00) mmol/L Sodium (136-148) mmol/L Potassium (3.5-5.1) mmol/L Chloride (98-107) mmol/L Carbon Dioxide (21.0-32.0) mmol/L BUN (7.0-18.0) mg/dL Creatinine (0.8-1.3) mg/dL Est Cr Clr Drug Dosing mL/min Estimated GFR (MDRD) ml/min Glucose (74-106) mg/dL POC Glucose 111 H 148 H (60-110) mg/dL Hemoglobin A1c (4.5 - 6.2) % Calcium (8.5-10.1) mg/dL Total Bilirubin (0.2-1.0) mg/dL AST (15-37) IU/L ALT (14-63) IU/L Alkaline Phosphatase (46-116) U/L Troponin I (0.000-0.056) ng/mL Total Protein (6.4-8.2) g/dL Albumin (3.4-5.0) g/dL Globulin (2.6-4.0) g/dL Albumin/Globulin Ratio (0.9-1.6) Urine Color Urine Appearance Urine pH (5.0-8.0) Ur Specific [place] (1.001-1.035) Urine Protein (NEGATIVE) mg/dL Urine Glucose (UA) (NEGATIVE) mg/dL Urine Ketones (NEGATIVE) mg/dL Urine Occult Blood (NEGATIVE) Urine Nitrite (NEGATIVE) Urine Bilirubin (NEGATIVE) Urine Urobilinogen (<2.0) EU/dL Ur Leukocyte Esterase (NEGATIVE) Urine RBC (0-2/HPF) Urine WBC (0-5/HPF) Ur Epithelial Cells (NONE-FEW) Urine Bacteria (NEGATIVE) Ur Random Sodium (40.0-220.0) mmol/L Influenza Type A RNA (NEGATIVE) Influenza Type B RNA (NEGATIVE) SARS-CoV-2 RNA (MATT) (NEGATIVE) Myron Results Last 24 Hours: Microbiology 07/29/20 13:15 Shiga Toxin I & II - Final Stool / Feces 07/29/20 09:57 Aerobic Blood Culture - Preliminary Blood - Venous - Lab Draw Anaerobic Blood Culture - Preliminary NO GROWTH AFTER 1 DAY 07/29/20 09:43 Aerobic Blood Culture - Preliminary Blood - Venous NO GROWTH AFTER 1 DAY Anaerobic Blood Culture - Preliminary NO GROWTH AFTER 1 DAY Med Orders - Current: Current Medications Acetaminophen (Tylenol Extra Strength) 500 mg PO Q6H PRN PRN Reason: Pain Albuterol/Ipratropium (Duoneb 3.0-0.5 Mg/3 Ml) 3 ml NEB Q4HRRT PRN PRN Reason: dyspnea/wheezing Apixaban (Eliquis) 5 mg PO BID [facility] Last Admin: 07/30/20 10:18 Dose: 5 mg Documented by: Carvedilol (Coreg) 25 mg PO BID [facility] Last Admin: 07/30/20 10:23 Dose: 25 mg Documented by: Dextrose/Water (Dextrose 50% In Water) 50 ml IV ASDIRECTED PRN PRN Reason: Hypoglycemia Diltiazem HCl (Cardizem Cd) 120 mg PO DAILY [facility] Last Admin: 07/30/20 10:21 Dose: 120 mg Documented by: Diltiazem HCl (Diltiazem) 20 mg IVPUSH Q6H PRN PRN Reason: Tachycardia Last Admin: 07/30/20 04:02 Dose: 20 mg Documented by: Glucagon (Glucagen) 1 mg IM ASDIRECTED PRN PRN Reason: Hypoglycemia Lactated Ringer's (Ringers, Lactated) 1,000 mls @ 999 mls/hr IV ASDIRECTED [facility] Last Admin: 07/29/20 09:52 Dose: 999 mls/hr Documented by: Lactated Ringer's (Ringers, Lactated) 1,000 mls @ 500 mls/hr IV ASDIRECTED [facility] Last Admin: 07/29/20 09:53 Dose: 500 mls/hr Documented by: Piperacillin Sod/Tazobactam (Sod 4.5 gm/ Sodium Chloride) 100 mls @ 100 mls/hr IV Q6H [facility] Last Admin: 07/30/20 05:20 Dose: 100 mls/hr Documented by: Vancomycin HCl 1.5 gm/ Premix 300 mls @ 200 mls/hr IV Q12H [facility] Last Admin: 07/30/20 11:22 Dose: 200 mls/hr Documented by: Insulin Aspart (Novolog) 0 unit SUBCUT TIDAC [facility]; Protocol Last Admin: 07/30/20 10:24 Dose: Not Given Documented by: Lisinopril (Prinivil) 10 mg PO DAILY [facility] Last Admin: 07/30/20 10:23 Dose: 10 mg Documented by: Nystatin (Nystop) 1 gm TOP TID [facility] Oxycodone HCl (Oxycodone) 5 mg PO Q8H PRN PRN Reason: Pain Sodium Chloride (Saline Flush) 10 ml FLUSH ASDIRECTED PRN PRN Reason: Keep Vein Open Last Admin: 07/29/20 09:53 Dose: 10 ml Documented by: Sodium Chloride (Saline Flush) 2.5 ml FLUSH ASDIRECTED PRN PRN Reason: Keep Vein Open Last Admin: 07/29/20 09:53 Dose: 2.5 ml Documented by: Sodium Chloride ([place] Saline Nasal Gel) 0 gm SCOTT ASDIRECTED PRN PRN Reason: Nasal Dryness Last Admin: 07/29/20 21:54 Dose: 1 spray Documented by: Vancomycin HCl (Pharmacy To Dose - Vancomycin) 1 dose .XX ASDIRECTED [facility] Discontinued Medications Acetaminophen (Tylenol Extra Strength) 1,000 mg PO ONETIME ONE Stop: 07/29/20 12:39 Last Admin: 07/29/20 13:35 Dose: 1,000 mg Documented by: Furosemide (Lasix) 50 mg PO DAILY [facility] Piperacillin Sod/Tazobactam (Sod 4.5 gm/ Sodium Chloride) 100 mls @ 200 mls/hr IV STAT ONE Stop: 07/29/20 10:10 Last Admin: 07/29/20 12:09 Dose: Not Given Documented by: Gentamicin Sulfate 160 mg/ (Sodium Chloride) 104 mls @ 200 mls/hr IV STAT ONE Stop: 07/29/20 10:10 Last Admin: 07/29/20 10:51 Dose: 200 mls/hr Documented by: Piperacillin Sod/Tazobactam (Sod 4.5 gm/ Sodium Chloride) 100 mls @ 200 mls/hr IV STAT ONE Stop: 07/29/20 10:29 Last Admin: 07/29/20 12:23 Dose: Not Given Documented by: Vancomycin HCl 2 gm/ Premix 400 mls @ 200 mls/hr IV ONETIME ONE Stop: 07/29/20 13:59 Last Admin: 07/29/20 11:55 Dose: 200 mls/hr Documented by: Piperacillin Sod/Tazobactam (Sod 4.5 gm/ Sodium Chloride) 100 mls @ 200 mls/hr IV STAT ONE Stop: 07/29/20 12:44 Last Admin: 07/29/20 12:21 Dose: 200 mls/hr Documented by: Sodium Chloride (Normal Saline) 1,000 mls @ 500 mls/hr IV STAT ONE Stop: 07/29/20 20:51 Last Admin: 07/29/20 19:18 Dose: 500 mls/hr Documented by: Sodium Chloride (Normal Saline) 500 mls @ 250 mls/hr IV NOW STA Stop: 07/30/20 11:33 Iopamidol (Isovue Multipack-370 (76%)) 100 ml IVPUSH ONETIME STA Stop: 07/29/20 11:31 Last Admin: 07/29/20 11:30 Dose: 100 ml Documented by: Morphine Sulfate (Morphine) 2 mg IVPUSH ONETIME ONE Stop: 07/29/20 21:35 Last Admin: 07/29/20 23:33 Dose: 1 mg Documented by: Spironolactone (Aldactone) 25 mg PO DAILY [facility] Last Admin: 07/30/20 10:19 Dose: 25 mg Documented by: - Exam Quality Assessment: No: Supplemental Oxygen General: Alert, Oriented HEENT: Pupils Equal, EOMI Lungs: Clear to Auscultation, Normal Respiratory Effort, Other (upper airway wheezing ; lungs clear ) Cardiovascular: Regular Rate, Regular Rhythm GI/Abdominal Exam: Soft, Non-Tender (Male) Exam: Other (erythemarous rash noted in groin ) Back Exam: Full Range of Motion Extremities: Normal Range of Motion Skin: Other (right lower extre,ity :david blood blister; [id number] ; clean dressing. Erythema noted over right lower extremity w.o any significant changes since yesterday ) Wound/Incisions: Dressing Dry and Intact Neurological: No New Focal Deficit Psy/Mental Status: Alert Sepsis Event Note - Evaluation Sepsis Screening Result: No Definite Risk - Focused Exam Vital Signs: Vital Signs Temp Pulse Pulse Resp BP BP Pulse Ox 07/30/20 11:39 98.2 F 115 H 20 120/83 98 07/30/20 10:23 120 H 136/77 07/30/20 10:21 120 H 236/77 H 07/30/20 08:00 98.4 F 120 H 20 136/77 98 07/30/20 04:00 98.1 F 112 H 18 111/72 98 - Problem List Review Problem List Initiated/Reviewed/Updated: Yes - My Orders Last 24 Hours: My Active Orders 07/29/20 13:13 OSMOLALITY - URINE Routine 07/29/20 14:36 Code Status [Resuscitation Status] Routine 07/29/20 14:37 Intake and Output Strict [RC] Q12H Up With Assistance [RC] ASDIRECTED 07/29/20 14:38 Telemetry Monitoring [Cardiac Monitoring] [RC] . DIRECTED 07/29/20 15:04 Height and Weight [RC] DAILY Oxygen Therapy [RC] PRN Pulse Oximetry [RC] PRN VTE/DVT Education [RC] PER UNIT ROUTINE Vital Signs [RC] Q4H 07/29/20 15:11 Dextrose 50% in Water 50 ml IV ASDIRECTED PRN Glucagon,Human Recombinant [GlucaGen] 1 mg IM ASDIRECTED PRN 07/29/20 15:12 POC Glucose [Blood Glucose Check, Bedside] [RC] TIDMEALS 07/29/20 15:15 Pharmacy to Dose - Vancomycin 1 dose .XX ASDIRECTED 07/29/20 15:38 Aloe Vera/Sodium Chloride [[place] Saline Nasal Gel] See Dose Instructions SCOTT ASDIRECTED PRN 07/29/20 Dinner [place] [employer] Diet [DIET] 07/29/20 17:00 Insulin Aspart [NovoLOG] See Protocol SUBCUT TIDAC 07/29/20 17:15 Diltiazem [Cardizem CD] 120 mg PO DAILY 07/29/20 18:00 Piperacillin/Tazobactam [Piperacil-Tazobact] 4.5 gm Sodium Chloride 0.9% [Normal Saline] 100 ml IV Q6H 07/29/20 18:53 Consult to Wound Care Services [CONS] Routine 07/29/20 19:01 Diltiazem 20 mg IVPUSH Q6H PRN 07/29/20 19:58 OSMOLALITY - SERUM [REF] Routine 07/29/20 21:00 Apixaban [Eliquis] 5 mg PO BID carvediloL [Coreg] 25 mg PO BID 07/29/20 23:30 VANCOmycin/Water for INJ (PEG) [VANCOmycin 1.5 GM/300 ML Premix] 1.5 gm Premix Bag 1 bag IV Q12H 07/30/20 09:00 lisinopriL [Prinivil] 10 mg PO DAILY 07/30/20 09:27 Acetaminophen [Tylenol Extra Strength] 500 mg PO Q6H PRN 07/30/20 14:00 Nystatin [Nystop] 1 gm TOP TID 07/31/20 05:11 CBC WITH AUTO DIFF [HEME] AM COMPREHENSIVE METABOLIC PN,CMP [CHEM] AM 07/31/20 11:00 VANCOMYCIN TROUGH [CHEM] Routine 08/01/20 05:11 CBC WITH AUTO DIFF [HEME] AM COMPREHENSIVE METABOLIC PN,CMP [CHEM] AM - Plan Plan:: Assessment: 1. right lower extremity cellulitis 2.. Hyponatremia: acute /moderate 3. Past medical history of chronic atrial fibrillation on anticoagulation, hypertension, type 2 diabetes, morbid obesity, congestive heart failure Plan Admit to inpatient. Full code. I's and O's strict. Diabetic diet. Up with assistance. 1. right lower extremity cellulitis: continue vancomycin and Zosyn. Blood c ultures ordered; will follow up with blood cultures when available. CT lower extremity did not suggest necrotizing/fasciitis; no gas noted in tissue. Wound care consulted Pain control: start oxycodone + Tylenol for pain control Continue Duo-nebs PRN for upper airway wheezing; no o2 desaturation 2. Hyponatremia.: acute/ moderate (120-130 w/o symptoms); Recheck BMP in PM. Alert and oriented Low urine sodium; concerns for Hypovolemic hyponatremia: will prvoide 500 cc NS over 2 hours and recheck this PM Awaiting stool studies. Hold Spironolactone+ Lasix until sodium improvement 3. DM II: hold home meds :hold Kyle mace; Continue SSI : medium corrective dose A1c : 6.8 4. CHD/HTN: continue home meds including Eliquis BP checks q 4 hours COVID and influenza negative Nystatin cream for tinea cruris. <Ilene Corcoran - Last Filed: 07/30/20 20:37> - Patient Data Vitals - Most Recent: Last Vital Signs Temp 36.7 C 07/30/20 18:27 Pulse 116 H 07/30/20 20:13 Resp 16 07/30/20 18:27 BP 109/66 07/30/20 20:13 Pulse Ox 94 L 07/30/20 18:27 I&O - Last 24 Hours: Intake & Output 07/30/20 07/30/20 07/30/20 06:59 14:59 22:59 Intake Total 2200 2000 Output Total 700 Balance 1500 2000 Lab Results Last 24 Hours: Laboratory Results - last 24 hr 07/29/20 07/29/20 07/29/20 Range/Units 09:43 09:43 09:43 WBC 9.40 (4.0-11.0) K/uL RBC 4.59 (4.50-5.90) M/uL Hgb 13.3 (13.0-17.0) g/dL Hct 40.3 (38.0-50.0) % MCV 87.8 (80.0-98.0) fL MCH 29.0 (27.0-32.0) pg MCHC 33.0 (31.0-37.0) g/dL RDW Std Deviation 50.6 (28.0-62.0) fl RDW Coeff of Conchita 16 H (11.0-15.0) % Plt Count 101 L (150-400) K/uL MPV 9.00 (7.40-12.00) fL Add Manual Diff YES Neutrophils % (Manual) 43 L (48.0-80.0) % Band Neutrophils % 36 % Lymphocytes % (Manual) 15 L (16.0-40.0) % Monocytes % (Manual) 6 (0.0-15.0) % Metamyelocytes % % Nucleated RBC % 0.0 /100WBC Absolute Seg Neuts 4.0 (1.4-5.7) Band Neutrophils # 3.4 Lymphocytes # (Manual) 1.4 (0.6-2.4) Monocytes # (Manual) 0.6 (0.0-0.8) Absolute Metamyelocyte Nucleated RBCs # 0 K/uL Reactive Lymphocytes MODERATE Vacuolated Monocytes MODERATE INR 1.68 Lactate 1.3 (0.20-2.00) mmol/L Sodium (136-148) mmol/L Potassium (3.5-5.1) mmol/L Chloride (98-107) mmol/L Carbon Dioxide (21.0-32.0) mmol/L BUN (7.0-18.0) mg/dL Creatinine (0.8-1.3) mg/dL Est Cr Clr Drug Dosing mL/min Estimated GFR (MDRD) ml/min Glucose (74-106) mg/dL POC Glucose (60-110) mg/dL Calcium (8.5-10.1) mg/dL Total Bilirubin (0.2-1.0) mg/dL AST (15-37) IU/L ALT (14-63) IU/L Alkaline Phosphatase (46-116) U/L Troponin I (0.000-0.056) ng/mL Total Protein (6.4-8.2) g/dL Albumin (3.4-5.0) g/dL Globulin (2.6-4.0) g/dL Albumin/Globulin Ratio (0.9-1.6) 07/29/20 07/29/20 07/30/20 Range/Units 09:43 21:10 04:45 WBC 10.26 (4.0-11.0) K/uL RBC 4.62 (4.50-5.90) M/uL Hgb 13.2 (13.0-17.0) g/dL Hct 40.6 (38.0-50.0) % MCV 87.9 (80.0-98.0) fL MCH 28.6 (27.0-32.0) pg MCHC 32.5 (31.0-37.0) g/dL RDW Std Deviation 50.4 (28.0-62.0) fl RDW Coeff of Conchita 16 H (11.0-15.0) % Plt Count 101 L (150-400) K/uL MPV 9.00 (7.40-12.00) fL Add Manual Diff YES Neutrophils % (Manual) 47 L (48.0-80.0) % Band Neutrophils % 38 % Lymphocytes % (Manual) 14 L (16.0-40.0) % Monocytes % (Manual) (0.0-15.0) % Metamyelocytes % 1 % Nucleated RBC % 0.0 /100WBC Absolute Seg Neuts 4.8 (1.4-5.7) Band Neutrophils # 3.9 Lymphocytes # (Manual) 1.4 (0.6-2.4) Monocytes # (Manual) (0.0-0.8) Absolute Metamyelocyte 0.1 Nucleated RBCs # 0 K/uL Reactive Lymphocytes Vacuolated Monocytes INR Lactate (0.20-2.00) mmol/L Sodium 125 L (136-148) mmol/L Potassium 3.7 (3.5-5.1) mmol/L Chloride 92 L (98-107) mmol/L Carbon Dioxide 17.8 L (21.0-32.0) mmol/L BUN 24 H (7.0-18.0) mg/dL Creatinine 1.0 (0.8-1.3) mg/dL Est Cr Clr Drug Dosing 85.45 mL/min Estimated GFR (MDRD) > 60.0 ml/min Glucose 161 H (74-106) mg/dL POC Glucose 112 H (60-110) mg/dL Calcium 8.1 L (8.5-10.1) mg/dL Total Bilirubin 1.0 (0.2-1.0) mg/dL AST 17 (15-37) IU/L ALT 18 (14-63) IU/L Alkaline Phosphatase 49 (46-116) U/L Troponin I < 0.050 (0.000-0.056) ng/mL Total Protein 6.2 L (6.4-8.2) g/dL Albumin 2.7 L (3.4-5.0) g/dL Globulin 3.5 (2.6-4.0) g/dL Albumin/Globulin Ratio 0.8 L (0.9-1.6) 07/30/20 07/30/20 07/30/20 Range/Units 04:45 06:35 11:33 WBC (4.0-11.0) K/uL RBC (4.50-5.90) M/uL Hgb (13.0-17.0) g/dL Hct (38.0-50.0) % MCV (80.0-98.0) fL MCH (27.0-32.0) pg MCHC (31.0-37.0) g/dL RDW Std Deviation (28.0-62.0) fl RDW Coeff of Conchita (11.0-15.0) % Plt Count (150-400) K/uL MPV (7.40-12.00) fL Add Manual Diff Neutrophils % (Manual) (48.0-80.0) % Band Neutrophils % % Lymphocytes % (Manual) (16.0-40.0) % Monocytes % (Manual) (0.0-15.0) % Metamyelocytes % % Nucleated RBC % /100WBC Absolute Seg Neuts (1.4-5.7) Band Neutrophils # Lymphocytes # (Manual) (0.6-2.4) Monocytes # (Manual) (0.0-0.8) Absolute Metamyelocyte Nucleated RBCs # K/uL Reactive Lymphocytes Vacuolated Monocytes INR Lactate (0.20-2.00) mmol/L Sodium 126 L (136-148) mmol/L Potassium 3.9 (3.5-5.1) mmol/L Chloride 90 L (98-107) mmol/L Carbon Dioxide 21.6 (21.0-32.0) mmol/L BUN 20 H (7.0-18.0) mg/dL Creatinine 0.9 (0.8-1.3) mg/dL Est Cr Clr Drug Dosing 94.94 mL/min Estimated GFR (MDRD) > 60.0 ml/min Glucose 122 H (74-106) mg/dL POC Glucose 111 H 148 H (60-110) mg/dL Calcium 8.7 (8.5-10.1) mg/dL Total Bilirubin 1.1 H (0.2-1.0) mg/dL AST 37 (15-37) IU/L ALT 23 (14-63) IU/L Alkaline Phosphatase 50 (46-116) U/L Troponin I (0.000-0.056) ng/mL Total Protein 6.7 (6.4-8.2) g/dL Albumin 2.6 L (3.4-5.0) g/dL Globulin 4.1 H (2.6-4.0) g/dL Albumin/Globulin Ratio 0.6 L (0.9-1.6) 07/30/20 07/30/20 Range/Units 16:09 17:41 WBC (4.0-11.0) K/uL RBC (4.50-5.90) M/uL Hgb (13.0-17.0) g/dL Hct (38.0-50.0) % MCV (80.0-98.0) fL MCH (27.0-32.0) pg MCHC (31.0-37.0) g/dL RDW Std Deviation (28.0-62.0) fl RDW Coeff of Conchita (11.0-15.0) % Plt Count (150-400) K/uL MPV (7.40-12.00) fL Add Manual Diff Neutrophils % (Manual) (48.0-80.0) % Band Neutrophils % % Lymphocytes % (Manual) (16.0-40.0) % Monocytes % (Manual) (0.0-15.0) % Metamyelocytes % % Nucleated RBC % /100WBC Absolute Seg Neuts (1.4-5.7) Band Neutrophils # Lymphocytes # (Manual) (0.6-2.4) Monocytes # (Manual) (0.0-0.8) Absolute Metamyelocyte Nucleated RBCs # K/uL Reactive Lymphocytes Vacuolated Monocytes INR Lactate (0.20-2.00) mmol/L Sodium 124 L (136-148) mmol/L Potassium 3.5 (3.5-5.1) mmol/L Chloride 88 L (98-107) mmol/L Carbon Dioxide 20.0 L (21.0-32.0) mmol/L BUN 23 H (7.0-18.0) mg/dL Creatinine 0.9 (0.8-1.3) mg/dL Est Cr Clr Drug Dosing 94.94 mL/min Estimated GFR (MDRD) > 60.0 ml/min Glucose 145 H (74-106) mg/dL POC Glucose 138 H (60-110) mg/dL Calcium 8.8 (8.5-10.1) mg/dL Total Bilirubin (0.2-1.0) mg/dL AST (15-37) IU/L ALT (14-63) IU/L Alkaline Phosphatase (46-116) U/L Troponin I (0.000-0.056) ng/mL Total Protein (6.4-8.2) g/dL Albumin (3.4-5.0) g/dL Globulin (2.6-4.0) g/dL Albumin/Globulin Ratio (0.9-1.6) Myron Results Last 24 Hours: Microbiology 07/29/20 13:15 Shiga Toxin I & II - Final Stool / Feces 07/29/20 09:57 Aerobic Blood Culture - Preliminary Blood - Venous - Lab Draw Anaerobic Blood Culture - Preliminary NO GROWTH AFTER 1 DAY 07/29/20 09:43 Aerobic Blood Culture - Preliminary Blood - Venous NO GROWTH AFTER 1 DAY Anaerobic Blood Culture - Preliminary NO GROWTH AFTER 1 DAY Med Orders - Current: Current Medications Acetaminophen (Tylenol Extra Strength) 500 mg PO Q6H PRN PRN Reason: Pain Last Admin: 07/30/20 19:45 Dose: 500 mg Documented by: Albuterol/Ipratropium (Duoneb 3.0-0.5 Mg/3 Ml) 3 ml NEB Q4HRRT PRN PRN Reason: dyspnea/wheezing Last Admin: 07/30/20 15:03 Dose: 3 ml Documented by: Apixaban (Eliquis) 5 mg PO BID [facility] Last Admin: 07/30/20 20:23 Dose: 5 mg Documented by: Carvedilol (Coreg) 25 mg PO BID [facility] Last Admin: 07/30/20 20:13 Dose: 25 mg Documented by: Dextrose/Water (Dextrose 50% In Water) 50 ml IV ASDIRECTED PRN PRN Reason: Hypoglycemia Diltiazem HCl (Cardizem Cd) 120 mg PO DAILY [facility] Last Admin: 07/30/20 10:21 Dose: 120 mg Documented by: Diltiazem HCl (Diltiazem) 20 mg IVPUSH Q6H PRN PRN Reason: Tachycardia Last Admin: 07/30/20 17:51 Dose: 20 mg Documented by: Glucagon (Glucagen) 1 mg IM ASDIRECTED PRN PRN Reason: Hypoglycemia Lactated Ringer's (Ringers, Lactated) 1,000 mls @ 999 mls/hr IV ASDIRECTED [facility] Last Admin: 07/29/20 09:52 Dose: 999 mls/hr Documented by: Lactated Ringer's (Ringers, Lactated) 1,000 mls @ 500 mls/hr IV ASDIRECTED [facility] Last Admin: 07/29/20 09:53 Dose: 500 mls/hr Documented by: Piperacillin Sod/Tazobactam (Sod 4.5 gm/ Sodium Chloride) 100 mls @ 100 mls/hr IV Q6H [facility] Last Admin: 07/30/20 17:43 Dose: 100 mls/hr Documented by: Vancomycin HCl 1.5 gm/ Premix 300 mls @ 200 mls/hr IV Q12H [facility] Last Admin: 07/30/20 11:22 Dose: 200 mls/hr Documented by: Insulin Aspart (Novolog) 0 unit SUBCUT TIDAC [facility]; Protocol Last Admin: 07/30/20 17:52 Dose: Not Given Documented by: Lisinopril (Prinivil) 10 mg PO DAILY [facility] Last Admin: 07/30/20 10:23 Dose: 10 mg Documented by: Nystatin (Nystop) 1 gm TOP TID [facility] Last Admin: 07/30/20 15:43 Dose: 1 bottle Documented by: Oxycodone HCl (Oxycodone) 5 mg PO Q8H PRN PRN Reason: Pain Sodium Chloride (Saline Flush) 10 ml FLUSH ASDIRECTED PRN PRN Reason: Keep Vein Open Last Admin: 07/29/20 09:53 Dose: 10 ml Documented by: Sodium Chloride (Saline Flush) 2.5 ml FLUSH ASDIRECTED PRN PRN Reason: Keep Vein Open Last Admin: 07/29/20 09:53 Dose: 2.5 ml Documented by: Sodium Chloride ([place] Saline Nasal Gel) 0 gm SCOTT ASDIRECTED PRN PRN Reason: Nasal Dryness Last Admin: 07/29/20 21:54 Dose: 1 spray Documented by: Vancomycin HCl (Pharmacy To Dose - Vancomycin) 1 dose .XX ASDIRECTED [facility] Discontinued Medications Acetaminophen (Tylenol Extra Strength) 1,000 mg PO ONETIME ONE Stop: 07/29/20 12:39 Last Admin: 07/29/20 13:35 Dose: 1,000 mg Documented by: Furosemide (Lasix) 50 mg PO DAILY GAEL Furosemide (Lasix) 40 mg IVPUSH NOW ONE Stop: 07/30/20 19:06 Last Admin: 07/30/20 19:47 Dose: Not Given Documented by: Piperacillin Sod/Tazobactam (Sod 4.5 gm/ Sodium Chloride) 100 mls @ 200 mls/hr IV STAT ONE Stop: 07/29/20 10:10 Last Admin: 07/29/20 12:09 Dose: Not Given Documented by: Gentamicin Sulfate 160 mg/ (Sodium Chloride) 104 mls @ 200 mls/hr IV STAT ONE Stop: 07/29/20 10:10 Last Admin: 07/29/20 10:51 Dose: 200 mls/hr Documented by: Piperacillin Sod/Tazobactam (Sod 4.5 gm/ Sodium Chloride) 100 mls @ 200 mls/hr IV STAT ONE Stop: 07/29/20 10:29 Last Admin: 07/29/20 12:23 Dose: Not Given Documented by: Vancomycin HCl 2 gm/ Premix 400 mls @ 200 mls/hr IV ONETIME ONE Stop: 07/29/20 13:59 Last Admin: 07/29/20 11:55 Dose: 200 mls/hr Documented by: Piperacillin Sod/Tazobactam (Sod 4.5 gm/ Sodium Chloride) 100 mls @ 200 mls/hr IV STAT ONE Stop: 07/29/20 12:44 Last Admin: 07/29/20 12:21 Dose: 200 mls/hr Documented by: Sodium Chloride (Normal Saline) 1,000 mls @ 500 mls/hr IV STAT ONE Stop: 07/29/20 20:51 Last Admin: 07/29/20 19:18 Dose: 500 mls/hr Documented by: Sodium Chloride (Normal Saline) 500 mls @ 250 mls/hr IV NOW STA Stop: 07/30/20 11:33 Last Admin: 07/30/20 13:24 Dose: 250 mls/hr Documented by: Sodium Chloride (Normal Saline) 500 mls @ 250 mls/hr IV ONETIME ONE Stop: 07/30/20 18:41 Last Admin: 07/30/20 17:46 Dose: 250 mls/hr Documented by: Iopamidol (Isovue Multipack-370 (76%)) 100 ml IVPUSH ONETIME STA Stop: 07/29/20 11:31 Last Admin: 07/29/20 11:30 Dose: 100 ml Documented by: Morphine Sulfate (Morphine) 2 mg IVPUSH ONETIME ONE Stop: 07/29/20 21:35 Last Admin: 07/29/20 23:33 Dose: 1 mg Documented by: Spironolactone (Aldactone) 25 mg PO DAILY GAEL Last Admin: 07/30/20 10:19 Dose: 25 mg Documented by: Sepsis Event Note - Focused Exam Vital Signs: Vital Signs Temp Pulse Pulse Resp BP BP Pulse Ox 07/30/20 20:13 116 H 109/66 07/30/20 18:27 36.7 C 117 H 16 118/64 94 L 07/30/20 15:04 36.7 C 101 H 20 117/75 97 07/30/20 15:00 37.0 C 120 H 20 130/63 94 L 07/30/20 11:39 36.8 C 115 H 20 120/83 98 07/30/20 10:23 120 H 136/77 07/30/20 10:21 120 H 236/77 H - Problem List & Annotations (1) Hyponatremia SNOMED Code(s): 17538803 Code(s): E87.1 - HYPO-OSMOLALITY AND HYPONATREMIA Status: Acute Current Visit: Yes (2) Diabetes SNOMED Code(s): 11338596 Code(s): E11.9 - TYPE 2 DIABETES MELLITUS WITHOUT COMPLICATIONS Status: Acute Current Visit: Yes (3) Cellulitis SNOMED Code(s): 049933069 Code(s): L03.90 - CELLULITIS, UNSPECIFIED Status: Acute Current Visit: Yes (4) Afib SNOMED Code(s): 72517781 Code(s): I48.91 - UNSPECIFIED ATRIAL FIBRILLATION Status: Acute Current Visit: Yes (5) Heart failure SNOMED Code(s): 13258989 Code(s): I50.9 - HEART FAILURE, UNSPECIFIED Status: Acute Current Visit: Yes (6) Foot ulcer SNOMED Code(s): 81575705 Code(s): L97.509 - NON-PRESSURE CHRONIC ULCER OTH PRT UNSP FOOT W UNSP SEVERITY Status: Acute Current Visit: Yes - Plan Plan:: I have seen and evaluated the patient. I have discussed findings and treatment plan with resident. I agree with the assessment and plan in the following note.
[2020-07-30] MEDS: Albuterol/Ipratropium 3.0-0.5 MG/3 ML Neb Soln NEB PRN (15:03)
[2020-07-30] MEDS: Nystatin Topical Powder 15 GM Bottle TOP SCH ×2 (15:43→21:20)
[2020-07-30 16:37] LABS: BLOOD UREA NITROGEN,BUN 23 mg/dL (7.0-18.0); CHLORIDE,CL 88 mmol/L (98-107); GLUCOSE RANDOM 145 mg/dL (74-106); POTASSIUM,K 3.5 mmol/L (3.5-5.1); SODIUM,NA 124 mmol/L (136-148)
[2020-07-30] MEDS ORDERED: Sodium Chloride 0.9% 500 ML IV ONE (16:42)
[2020-07-30] MEDS ORDERED: Furosemide 40 MG/4 ML VIAL IVPUSH ONE (19:05)
[2020-07-30] MEDS: Acetaminophen 500 MG Tab PO PRN (19:45)
[2020-07-30] MEDS: oxyCODONE 5 MG Tab PO PRN (22:33)
[2020-07-31] MEDS: Diltiazem 25 MG/5 ML SDV IVPUSH PRN ×2 (01:29→16:49)
[2020-07-31] MEDS: Acetaminophen 500 MG Tab PO PRN (01:58)
[2020-07-31] MEDS: Piperacillin/Tazobactam 4.5 GM in Sodium Chloride 0.9% 100 ML IV SCH (05:10)
[2020-07-31] MEDS: Nystatin Topical Powder 15 GM Bottle TOP SCH ×3 (05:10→21:14)
[2020-07-31 05:33] LABS: BLOOD UREA NITROGEN,BUN 26 mg/dL (7.0-18.0); CARBON DIOXIDE,CO2 19.7 mmol/L (21.0-32.0); CHLORIDE,CL 92 mmol/L (98-107); GLUCOSE RANDOM 154 mg/dL (74-106); POTASSIUM,K 2.9 mmol/L (3.5-5.1); SODIUM,NA 127 mmol/L (136-148)
[2020-07-31] MEDS: oxyCODONE 5 MG Tab PO PRN ×2 (06:30→21:24)
[2020-07-31] MEDS ORDERED: Potassium Chloride 20 MEQ Tab.ER PO ONE ×2 (07:52→08:30)
[2020-07-31] MEDS ORDERED: Potassium Chloride Riders 20 MEQ in Premix Bag 1 BAG IV ONE (07:54)
[2020-07-31] MEDS: Diltiazem 120 MG Cap.CD PO SCH (08:16)
[2020-07-31] MEDS: Lisinopril 10 MG Tab PO SCH (08:17)
[2020-07-31] MEDS: Carvedilol 25 MG Tab PO SCH ×3 (08:17→21:14)
[2020-07-31] MEDS: Apixaban 5 MG Tab PO SCH ×2 (08:17→20:56)
[2020-07-31] MEDS: Insulin Aspart 100 Units/ML 3 ML Pen SUBCUT SCH ×3 (08:19→17:57)
--- NOTE | 2020-07-31 09:02 | PCM.PN ---
<Roshan Akhtar - Last Filed: 07/31/20 11:24> - General Info Date of Service: 07/31/20 Subjective Update: Bedside: mentions leg pain+ back pain improving w. oxycodone. mentions some nasal dryness. Slept better w. oxycodone Functional Status: Reports: Pain Controlled - Review of Systems General: Reports: Fatigue. Denies: Fever, Weakness, Chills HEENT: Reports: Sore Throat Pulmonary: Denies: No Symptoms Cardiovascular: Denies: No Symptoms Gastrointestinal: Reports: Diarrhea. Denies: Abdominal Pain, Constipation, Decreased Appetite, Nausea, Vomiting Genitourinary: Reports: No Symptoms Musculoskeletal: Reports: Back Pain Skin: Reports: Rash Neurological: Reports: Paresthesia. Denies: Dizziness, Headache - Patient Data Vitals - Most Recent: Last Vital Signs Temp 98.4 F 07/31/20 08:11 Pulse 127 H 07/31/20 08:17 Resp 18 07/31/20 08:11 BP 127/74 07/31/20 08:17 Pulse Ox 95 07/31/20 08:11 Weight - Most Recent: 146.556 kg I&O - Last 24 Hours: Intake & Output 07/30/20 07/31/20 07/31/20 22:59 06:59 14:59 Intake Total 1999 Output Total 675 Balance 1999 - Lab Results Last 24 Hours: Laboratory Results - last 24 hr 07/29/20 07/29/20 07/29/20 Range/Units 09:43 09:43 09:43 WBC 9.40 (4.0-11.0) K/uL RBC 4.59 (4.50-5.90) M/uL Hgb 13.3 (13.0-17.0) g/dL Hct 40.3 (38.0-50.0) % MCV 87.8 (80.0-98.0) fL MCH 29.0 (27.0-32.0) pg MCHC 33.0 (31.0-37.0) g/dL RDW Std Deviation 50.6 (28.0-62.0) fl RDW Coeff of Conchita 16 H (11.0-15.0) % Plt Count 101 L (150-400) K/uL MPV 9.00 (7.40-12.00) fL Neut % (Auto) (48.0-80.0) % Lymph % (Auto) (16.0-40.0) % E[place] % (Auto) (0.0-15.0) % Eos % (Auto) (0.0-7.0) % Baso % (Auto) (0.0-1.5) % Neut # (Auto) (1.4-5.7) K/uL Lymph # (Auto) (0.6-2.4) K/uL Erie # (Auto) (0.0-0.8) K/uL Eos # (Auto) (0.0-0.7) K/uL Baso # (Auto) (0.0-0.1) K/uL Add Manual Diff YES Neutrophils % (Manual) 43 L (48.0-80.0) % Band Neutrophils % 36 % Lymphocytes % (Manual) 15 L (16.0-40.0) % Monocytes % (Manual) 6 (0.0-15.0) % Nucleated RBC % 0.0 /100WBC Absolute Seg Neuts 4.0 (1.4-5.7) Band Neutrophils # 3.4 Lymphocytes # (Manual) 1.4 (0.6-2.4) Monocytes # (Manual) 0.6 (0.0-0.8) Nucleated RBCs # 0 K/uL Reactive Lymphocytes MODERATE Vacuolated Monocytes MODERATE INR 1.68 Lactate 1.3 (0.20-2.00) mmol/L Sodium (136-148) mmol/L Potassium (3.5-5.1) mmol/L Chloride (98-107) mmol/L Carbon Dioxide (21.0-32.0) mmol/L BUN (7.0-18.0) mg/dL Creatinine (0.8-1.3) mg/dL Est Cr Clr Drug Dosing mL/min Estimated GFR (MDRD) ml/min Glucose (74-106) mg/dL POC Glucose (60-110) mg/dL Serum Osmolality (275-295) mosm/kg Calcium (8.5-10.1) mg/dL Phosphorus (2.6-4.7) mg/dL Magnesium (1.8-2.4) mg/dL Total Bilirubin (0.2-1.0) mg/dL AST (15-37) IU/L ALT (14-63) IU/L Alkaline Phosphatase (46-116) U/L Troponin I (0.000-0.056) ng/mL Total Protein (6.4-8.2) g/dL Albumin (3.4-5.0) g/dL Globulin (2.6-4.0) g/dL Albumin/Globulin Ratio (0.9-1.6) Urine Osmolality (300-900) mosm/kg 07/29/20 07/29/20 07/29/20 Range/Units 09:43 13:13 19:58 WBC (4.0-11.0) K/uL RBC (4.50-5.90) M/uL Hgb (13.0-17.0) g/dL Hct (38.0-50.0) % MCV (80.0-98.0) fL MCH (27.0-32.0) pg MCHC (31.0-37.0) g/dL RDW Std Deviation (28.0-62.0) fl RDW Coeff of Conchita (11.0-15.0) % Plt Count (150-400) K/uL MPV (7.40-12.00) fL Neut % (Auto) (48.0-80.0) % Lymph % (Auto) (16.0-40.0) % Erie % (Auto) (0.0-15.0) % Eos % (Auto) (0.0-7.0) % Baso % (Auto) (0.0-1.5) % Neut # (Auto) (1.4-5.7) K/uL Lymph # (Auto) (0.6-2.4) K/uL Erie # (Auto) (0.0-0.8) K/uL Eos # (Auto) (0.0-0.7) K/uL Baso # (Auto) (0.0-0.1) K/uL Add Manual Diff Neutrophils % (Manual) (48.0-80.0) % Band Neutrophils % % Lymphocytes % (Manual) (16.0-40.0) % Monocytes % (Manual) (0.0-15.0) % Nucleated RBC % /100WBC Absolute Seg Neuts (1.4-5.7) Band Neutrophils # Lymphocytes # (Manual) (0.6-2.4) Monocytes # (Manual) (0.0-0.8) Nucleated RBCs # K/uL Reactive Lymphocytes Vacuolated Monocytes INR Lactate (0.20-2.00) mmol/L Sodium 125 L (136-148) mmol/L Potassium 3.7 (3.5-5.1) mmol/L Chloride 92 L (98-107) mmol/L Carbon Dioxide 17.8 L (21.0-32.0) mmol/L BUN 24 H (7.0-18.0) mg/dL Creatinine 1.0 (0.8-1.3) mg/dL Est Cr Clr Drug Dosing 85.45 mL/min Estimated GFR (MDRD) > 60.0 ml/min Glucose 161 H (74-106) mg/dL POC Glucose (60-110) mg/dL Serum Osmolality 266 L (275-295) mosm/kg Calcium 8.1 L (8.5-10.1) mg/dL Phosphorus (2.6-4.7) mg/dL Magnesium (1.8-2.4) mg/dL Total Bilirubin 1.0 (0.2-1.0) mg/dL AST 17 (15-37) IU/L ALT 18 (14-63) IU/L Alkaline Phosphatase 49 (46-116) U/L Troponin I < 0.050 (0.000-0.056) ng/mL Total Protein 6.2 L (6.4-8.2) g/dL Albumin 2.7 L (3.4-5.0) g/dL Globulin 3.5 (2.6-4.0) g/dL Albumin/Globulin Ratio 0.8 L (0.9-1.6) Urine Osmolality 535 (300-900) mosm/kg 07/30/20 07/30/20 07/30/20 Range/Units 11:33 16:09 17:41 WBC (4.0-11.0) K/uL RBC (4.50-5.90) M/uL Hgb (13.0-17.0) g/dL Hct (38.0-50.0) % MCV (80.0-98.0) fL MCH (27.0-32.0) pg MCHC (31.0-37.0) g/dL RDW Std Deviation (28.0-62.0) fl RDW Coeff of Conchita (11.0-15.0) % Plt Count (150-400) K/uL MPV (7.40-12.00) fL Neut % (Auto) (48.0-80.0) % Lymph % (Auto) (16.0-40.0) % Erie % (Auto) (0.0-15.0) % Eos % (Auto) (0.0-7.0) % Baso % (Auto) (0.0-1.5) % Neut # (Auto) (1.4-5.7) K/uL Lymph # (Auto) (0.6-2.4) K/uL Erie # (Auto) (0.0-0.8) K/uL Eos # (Auto) (0.0-0.7) K/uL Baso # (Auto) (0.0-0.1) K/uL Add Manual Diff Neutrophils % (Manual) (48.0-80.0) % Band Neutrophils % % Lymphocytes % (Manual) (16.0-40.0) % Monocytes % (Manual) (0.0-15.0) % Nucleated RBC % /100WBC Absolute Seg Neuts (1.4-5.7) Band Neutrophils # Lymphocytes # (Manual) (0.6-2.4) Monocytes # (Manual) (0.0-0.8) Nucleated RBCs # K/uL Reactive Lymphocytes Vacuolated Monocytes INR Lactate (0.20-2.00) mmol/L Sodium 124 L (136-148) mmol/L Potassium 3.5 (3.5-5.1) mmol/L Chloride 88 L (98-107) mmol/L Carbon Dioxide 20.0 L (21.0-32.0) mmol/L BUN 23 H (7.0-18.0) mg/dL Creatinine 0.9 (0.8-1.3) mg/dL Est Cr Clr Drug Dosing 94.94 mL/min Estimated GFR (MDRD) > 60.0 ml/min Glucose 145 H (74-106) mg/dL POC Glucose 148 H 138 H (60-110) mg/dL Serum Osmolality (275-295) mosm/kg Calcium 8.8 (8.5-10.1) mg/dL Phosphorus (2.6-4.7) mg/dL Magnesium (1.8-2.4) mg/dL Total Bilirubin (0.2-1.0) mg/dL AST (15-37) IU/L ALT (14-63) IU/L Alkaline Phosphatase (46-116) U/L Troponin I (0.000-0.056) ng/mL Total Protein (6.4-8.2) g/dL Albumin (3.4-5.0) g/dL Globulin (2.6-4.0) g/dL Albumin/Globulin Ratio (0.9-1.6) Urine Osmolality (300-900) mosm/kg 07/31/20 07/31/20 07/31/20 Range/Units 04:40 04:40 04:40 WBC 13.24 H (4.0-11.0) K/uL RBC 4.42 L (4.50-5.90) M/uL Hgb 12.4 L (13.0-17.0) g/dL Hct 37.6 L (38.0-50.0) % MCV 85.1 (80.0-98.0) fL MCH 28.1 (27.0-32.0) pg MCHC 33.0 (31.0-37.0) g/dL RDW Std Deviation 48.1 (28.0-62.0) fl RDW Coeff of Conchita 15 (11.0-15.0) % Plt Count 118 L (150-400) K/uL MPV 9.10 (7.40-12.00) fL Neut % (Auto) 88.8 H (48.0-80.0) % Lymph % (Auto) 6.3 L (16.0-40.0) % Erie % (Auto) 4.8 (0.0-15.0) % Eos % (Auto) 0.0 (0.0-7.0) % Baso % (Auto) 0.1 (0.0-1.5) % Neut # (Auto) 11.8 H (1.4-5.7) K/uL Lymph # (Auto) 0.8 (0.6-2.4) K/uL Erie # (Auto) 0.6 (0.0-0.8) K/uL Eos # (Auto) 0.0 (0.0-0.7) K/uL Baso # (Auto) 0.0 (0.0-0.1) K/uL Add Manual Diff Neutrophils % (Manual) (48.0-80.0) % Band Neutrophils % % Lymphocytes % (Manual) (16.0-40.0) % Monocytes % (Manual) (0.0-15.0) % Nucleated RBC % 0.0 /100WBC Absolute Seg Neuts (1.4-5.7) Band Neutrophils # Lymphocytes # (Manual) (0.6-2.4) Monocytes # (Manual) (0.0-0.8) Nucleated RBCs # 0 K/uL Reactive Lymphocytes Vacuolated Monocytes INR Lactate (0.20-2.00) mmol/L Sodium 127 L (136-148) mmol/L Potassium 2.9 L (3.5-5.1) mmol/L Chloride 92 L (98-107) mmol/L Carbon Dioxide 19.7 L (21.0-32.0) mmol/L BUN 26 H (7.0-18.0) mg/dL Creatinine 0.9 (0.8-1.3) mg/dL Est Cr Clr Drug Dosing 94.94 mL/min Estimated GFR (MDRD) > 60.0 ml/min Glucose 154 H (74-106) mg/dL POC Glucose (60-110) mg/dL Serum Osmolality (275-295) mosm/kg Calcium 8.6 (8.5-10.1) mg/dL Phosphorus (2.6-4.7) mg/dL Magnesium 2.1 (1.8-2.4) mg/dL Total Bilirubin 0.8 (0.2-1.0) mg/dL AST 28 (15-37) IU/L ALT 26 (14-63) IU/L Alkaline Phosphatase 52 (46-116) U/L Troponin I (0.000-0.056) ng/mL Total Protein 6.1 L (6.4-8.2) g/dL Albumin 2.3 L (3.4-5.0) g/dL Globulin 3.8 (2.6-4.0) g/dL Albumin/Globulin Ratio 0.6 L (0.9-1.6) Urine Osmolality (300-900) mosm/kg 07/31/20 07/31/20 07/31/20 Range/Units 04:40 05:59 08:40 WBC (4.0-11.0) K/uL RBC (4.50-5.90) M/uL Hgb (13.0-17.0) g/dL Hct (38.0-50.0) % MCV (80.0-98.0) fL MCH (27.0-32.0) pg MCHC (31.0-37.0) g/dL RDW Std Deviation (28.0-62.0) fl RDW Coeff of Conchita (11.0-15.0) % Plt Count (150-400) K/uL MPV (7.40-12.00) fL Neut % (Auto) (48.0-80.0) % Lymph % (Auto) (16.0-40.0) % Erie % (Auto) (0.0-15.0) % Eos % (Auto) (0.0-7.0) % Baso % (Auto) (0.0-1.5) % Neut # (Auto) (1.4-5.7) K/uL Lymph # (Auto) (0.6-2.4) K/uL Erie # (Auto) (0.0-0.8) K/uL Eos # (Auto) (0.0-0.7) K/uL Baso # (Auto) (0.0-0.1) K/uL Add Manual Diff Neutrophils % (Manual) (48.0-80.0) % Band Neutrophils % % Lymphocytes % (Manual) (16.0-40.0) % Monocytes % (Manual) (0.0-15.0) % Nucleated RBC % /100WBC Absolute Seg Neuts (1.4-5.7) Band Neutrophils # Lymphocytes # (Manual) (0.6-2.4) Monocytes # (Manual) (0.0-0.8) Nucleated RBCs # K/uL Reactive Lymphocytes Vacuolated Monocytes INR Lactate 1.6 (0.20-2.00) mmol/L Sodium (136-148) mmol/L Potassium (3.5-5.1) mmol/L Chloride (98-107) mmol/L Carbon Dioxide (21.0-32.0) mmol/L BUN (7.0-18.0) mg/dL Creatinine (0.8-1.3) mg/dL Est Cr Clr Drug Dosing mL/min Estimated GFR (MDRD) ml/min Glucose (74-106) mg/dL POC Glucose 145 H (60-110) mg/dL Serum Osmolality (275-295) mosm/kg Calcium (8.5-10.1) mg/dL Phosphorus 2.4 L (2.6-4.7) mg/dL Magnesium (1.8-2.4) mg/dL Total Bilirubin (0.2-1.0) mg/dL AST (15-37) IU/L ALT (14-63) IU/L Alkaline Phosphatase (46-116) U/L Troponin I (0.000-0.056) ng/mL Total Protein (6.4-8.2) g/dL Albumin (3.4-5.0) g/dL Globulin (2.6-4.0) g/dL Albumin/Globulin Ratio (0.9-1.6) Urine Osmolality (300-900) mosm/kg Myron Results Last 24 Hours: Microbiology 07/29/20 09:57 Aerobic Blood Culture - Final Blood - Venous - Lab Draw Streptococcus Group A Anaerobic Blood Culture - Preliminary NO GROWTH AFTER 1 DAY 07/29/20 13:15 Shiga Toxin I & II - Final Stool / Feces 07/29/20 09:43 Aerobic Blood Culture - Preliminary Blood - Venous NO GROWTH AFTER 1 DAY Anaerobic Blood Culture - Preliminary NO GROWTH AFTER 1 DAY Med Orders - Current: Current Medications Acetaminophen (Tylenol Extra Strength) 500 mg PO Q6H PRN PRN Reason: Pain Last Admin: 07/31/20 01:58 Dose: 500 mg Documented by: Albuterol/Ipratropium (Duoneb 3.0-0.5 Mg/3 Ml) 3 ml NEB Q4HRRT PRN PRN Reason: dyspnea/wheezing Last Admin: 07/30/20 15:03 Dose: 3 ml Documented by: Apixaban (Eliquis) 5 mg PO BID [facility] Last Admin: 07/31/20 08:17 Dose: 5 mg Documented by: Carvedilol (Coreg) 25 mg PO BID [facility] Last Admin: 07/31/20 08:17 Dose: 25 mg Documented by: Dextrose/Water (Dextrose 50% In Water) 50 ml IV ASDIRECTED PRN PRN Reason: Hypoglycemia Diltiazem HCl (Cardizem Cd) 120 mg PO DAILY [facility] Last Admin: 07/31/20 08:16 Dose: 120 mg Documented by: Diltiazem HCl (Diltiazem) 20 mg IVPUSH Q6H PRN PRN Reason: Tachycardia Last Admin: 07/31/20 01:29 Dose: 20 mg Documented by: Glucagon (Glucagen) 1 mg IM ASDIRECTED PRN PRN Reason: Hypoglycemia Lactated Ringer's (Ringers, Lactated) 1,000 mls @ 999 mls/hr IV ASDIRECTED [facility] Last Admin: 07/29/20 09:52 Dose: 999 mls/hr Documented by: Lactated Ringer's (Ringers, Lactated) 1,000 mls @ 500 mls/hr IV ASDIRECTED [facility] Last Admin: 07/29/20 09:53 Dose: 500 mls/hr Documented by: Piperacillin Sod/Tazobactam (Sod 4.5 gm/ Sodium Chloride) 100 mls @ 100 mls/hr IV Q6H [facility] Last Admin: 07/31/20 05:10 Dose: 100 mls/hr Documented by: Vancomycin HCl 1.5 gm/ Premix 300 mls @ 200 mls/hr IV Q12H [facility] Last Admin: 07/31/20 00:29 Dose: 200 mls/hr Documented by: Insulin Aspart (Novolog) 0 unit SUBCUT TIDAC [facility]; Protocol Last Admin: 07/31/20 08:19 Dose: 2 units Documented by: Lisinopril (Prinivil) 10 mg PO DAILY [facility] Last Admin: 07/31/20 08:17 Dose: 10 mg Documented by: Nystatin (Nystop) 1 gm TOP TID [facility] Last Admin: 07/31/20 05:10 Dose: 1 bottle Documented by: Oxycodone HCl (Oxycodone) 5 mg PO Q8H PRN PRN Reason: Pain Last Admin: 07/31/20 06:30 Dose: 5 mg Documented by: Sodium Chloride (Saline Flush) 10 ml FLUSH ASDIRECTED PRN PRN Reason: Keep Vein Open Last Admin: 07/29/20 09:53 Dose: 10 ml Documented by: Sodium Chloride (Saline Flush) 2.5 ml FLUSH ASDIRECTED PRN PRN Reason: Keep Vein Open Last Admin: 07/29/20 09:53 Dose: 2.5 ml Documented by: Sodium Chloride ([place] Saline Nasal Gel) 0 gm SCOTT ASDIRECTED PRN PRN Reason: Nasal Dryness Last Admin: 07/29/20 21:54 Dose: 1 spray Documented by: Vancomycin HCl (Pharmacy To Dose - Vancomycin) 1 dose .XX ASDIRECTED GAEL Discontinued Medications Acetaminophen (Tylenol Extra Strength) 1,000 mg PO ONETIME ONE Stop: 07/29/20 12:39 Last Admin: 07/29/20 13:35 Dose: 1,000 mg Documented by: Furosemide (Lasix) 50 mg PO DAILY GAEL Furosemide (Lasix) 40 mg IVPUSH NOW ONE Stop: 07/30/20 19:06 Last Admin: 07/30/20 19:47 Dose: Not Given Documented by: Piperacillin Sod/Tazobactam (Sod 4.5 gm/ Sodium Chloride) 100 mls @ 200 mls/hr IV STAT ONE Stop: 07/29/20 10:10 Last Admin: 07/29/20 12:09 Dose: Not Given Documented by: Gentamicin Sulfate 160 mg/ (Sodium Chloride) 104 mls @ 200 mls/hr IV STAT ONE Stop: 07/29/20 10:10 Last Admin: 07/29/20 10:51 Dose: 200 mls/hr Documented by: Piperacillin Sod/Tazobactam (Sod 4.5 gm/ Sodium Chloride) 100 mls @ 200 mls/hr IV STAT ONE Stop: 07/29/20 10:29 Last Admin: 07/29/20 12:23 Dose: Not Given Documented by: Vancomycin HCl 2 gm/ Premix 400 mls @ 200 mls/hr IV ONETIME ONE Stop: 07/29/20 13:59 Last Admin: 07/29/20 11:55 Dose: 200 mls/hr Documented by: Piperacillin Sod/Tazobactam (Sod 4.5 gm/ Sodium Chloride) 100 mls @ 200 mls/hr IV STAT ONE Stop: 07/29/20 12:44 Last Admin: 07/29/20 12:21 Dose: 200 mls/hr Documented by: Sodium Chloride (Normal Saline) 1,000 mls @ 500 mls/hr IV STAT ONE Stop: 07/29/20 20:51 Last Admin: 07/29/20 19:18 Dose: 500 mls/hr Documented by: Sodium Chloride (Normal Saline) 500 mls @ 250 mls/hr IV NOW STA Stop: 07/30/20 11:33 Last Admin: 07/30/20 13:24 Dose: 250 mls/hr Documented by: Sodium Chloride (Normal Saline) 500 mls @ 250 mls/hr IV ONETIME ONE Stop: 07/30/20 18:41 Last Admin: 07/30/20 17:46 Dose: 250 mls/hr Documented by: Iopamidol (Isovue Multipack-370 (76%)) 100 ml IVPUSH ONETIME STA Stop: 07/29/20 11:31 Last Admin: 07/29/20 11:30 Dose: 100 ml Documented by: Morphine Sulfate (Morphine) 2 mg IVPUSH ONETIME ONE Stop: 07/29/20 21:35 Last Admin: 07/29/20 23:33 Dose: 1 mg Documented by: Potassium Chloride (Klor-Con M20) 40 meq PO ONETIME ONE Stop: 07/31/20 07:53 Last Admin: 07/31/20 08:16 Dose: 40 meq Documented by: Potassium Chloride (Klor-Con M20) 40 meq PO ONETIME ONE Stop: 07/31/20 08:31 Spironolactone (Aldactone) 25 mg PO DAILY [facility] Last Admin: 07/30/20 10:19 Dose: 25 mg Documented by: - Exam Quality Assessment: No: Supplemental Oxygen General: Alert, Oriented, Cooperative, No Acute Distress HEENT: EOMI Neck: Supple Lungs: Clear to Auscultation, Normal Respiratory Effort Cardiovascular: Regular Rhythm, Tachycardia GI/Abdominal Exam: Non-Tender Extremities: Other (minimla improvement of erythema noted; edema marginal serial improvement since admission. Blister is now unroofed and bleeding; sensation intact ) Wound/Incisions: Drainage Psy/Mental Status: Alert, Normal Mood Sepsis Event Note - Evaluation Sepsis Screening Result: No Definite Risk - Focused Exam Vital Signs: Vital Signs Temp Pulse Pulse Resp BP BP Pulse Ox 07/31/20 08:17 127 H 127/74 07/31/20 08:16 127 H 127/74 07/31/20 08:11 98.4 F 124 H 18 127/74 95 07/31/20 07:20 97 F 132 H 18 92/65 93 L 07/31/20 04:00 97.6 F 109 H 18 92/60 94 L 07/31/20 03:11 07/31/20 02:31 109 H 07/31/20 01:30 117 H 18 115/70 95 07/30/20 23:26 96.7 F L 115 H 107/67 95 07/30/20 22:00 97.7 F 103 H 19 101/52 L 95 Pulse Ox 07/31/20 08:17 07/31/20 08:16 07/31/20 08:11 07/31/20 07:20 07/31/20 04:00 07/31/20 03:11 95 07/31/20 02:31 07/31/20 01:30 07/30/20 23:26 07/30/20 22:00 - Problem List & Annotations (1) Hypokalemia SNOMED Code(s): 47062687 Code(s): E87.6 - HYPOKALEMIA Status: Acute Current Visit: Yes (2) Cellulitis SNOMED Code(s): 336579029 Code(s): L03.90 - CELLULITIS, UNSPECIFIED Status: Acute Current Visit: Yes (3) Diabetes SNOMED Code(s): 40840370 Code(s): E11.9 - TYPE 2 DIABETES MELLITUS WITHOUT COMPLICATIONS Status: Acute Current Visit: Yes (4) Foot ulcer SNOMED Code(s): 93149560 Code(s): L97.509 - NON-PRESSURE CHRONIC ULCER OTH PRT UNSP FOOT W UNSP SEVERITY Status: Acute Current Visit: Yes (5) Heart failure SNOMED Code(s): 85893900 Code(s): I50.9 - HEART FAILURE, UNSPECIFIED Status: Acute Current Visit: Yes (6) Hyponatremia SNOMED Code(s): 09388943 Code(s): E87.1 - HYPO-OSMOLALITY AND HYPONATREMIA Status: Acute Current Visit: Yes - Problem List Review Problem List Initiated/Reviewed/Updated: Yes - My Orders Last 24 Hours: My Active Orders 07/30/20 09:00 lisinopriL [Prinivil] 10 mg PO DAILY 07/30/20 09:27 Acetaminophen [Tylenol Extra Strength] 500 mg PO Q6H PRN 07/30/20 14:00 Nystatin [Nystop] 1 gm TOP TID 07/31/20 11:00 VANCOMYCIN TROUGH [CHEM] Routine 08/01/20 05:11 CBC WITH AUTO DIFF [HEME] AM COMPREHENSIVE METABOLIC PN,CMP [CHEM] AM - Plan Plan:: Assessment: 1. right lower extremity cellulitis 2.. Hyponatremia: acute /moderate 3. Past medical history of chronic atrial fibrillation on anticoagulation, hypertension, type 2 diabetes, morbid obesity, congestive heart failure 4. Hypokalemia Plan 1. Sepsis in setting of right lower extremity cellulitis: Group A strep + Bcx :switch to Clindamycin + Rocephin. patient may require outpatient infusion and PICC Line placement. Repeat blood cultures ordered. Continue enterostomal care ; Lactate negative. 2. Hyponatremia.: acute Hyponatremia; resume Lasix home dose; AO x 4. No AMS. Improving this AM ; resume home lasix and repeat Na in AM 3. DM II: hold home meds :hold trulicity, Jardiance; Start SSI : medium corrective dose 4. CHD/HTN: continue home meds including Eliquis BP checks q 4 hours COVID and influenza negative 5. Repleted potassium w. 40; recheck in AM I performed a history and physical exam of the patient and discussed management with resident. I have reviewed the residents note and agree with documented findings and plan unless otherwise specified in my note.' <Ilene Corcoran - Last Filed: 07/31/20 23:17> - Patient Data Vitals - Most Recent: Last Vital Signs Temp 36.7 C 07/31/20 19:45 Pulse 136 H 07/31/20 19:47 Resp 16 07/31/20 19:45 BP 109/41 L 07/31/20 19:47 Pulse Ox 95 07/31/20 19:45 I&O - Last 24 Hours: Intake & Output 07/31/20 07/31/20 08/01/20 14:59 22:59 06:59 Intake Total 750 Output Total 350 Balance 400 Lab Results Last 24 Hours: Laboratory Results - last 24 hr 07/29/20 07/29/20 07/31/20 Range/Units 13:13 19:58 04:40 WBC 13.24 H (4.0-11.0) K/uL RBC 4.42 L (4.50-5.90) M/uL Hgb 12.4 L (13.0-17.0) g/dL Hct 37.6 L (38.0-50.0) % MCV 85.1 (80.0-98.0) fL MCH 28.1 (27.0-32.0) pg MCHC 33.0 (31.0-37.0) g/dL RDW Std Deviation 48.1 (28.0-62.0) fl RDW Coeff of Conchita 15 (11.0-15.0) % Plt Count 118 L (150-400) K/uL MPV 9.10 (7.40-12.00) fL Neut % (Auto) 88.8 H (48.0-80.0) % Lymph % (Auto) 6.3 L (16.0-40.0) % Erie % (Auto) 4.8 (0.0-15.0) % Eos % (Auto) 0.0 (0.0-7.0) % Baso % (Auto) 0.1 (0.0-1.5) % Neut # (Auto) 11.8 H (1.4-5.7) K/uL Lymph # (Auto) 0.8 (0.6-2.4) K/uL Erie # (Auto) 0.6 (0.0-0.8) K/uL Eos # (Auto) 0.0 (0.0-0.7) K/uL Baso # (Auto) 0.0 (0.0-0.1) K/uL Nucleated RBC % 0.0 /100WBC Nucleated RBCs # 0 K/uL Lactate (0.20-2.00) mmol/L Sodium (136-148) mmol/L Potassium (3.5-5.1) mmol/L Chloride (98-107) mmol/L Carbon Dioxide (21.0-32.0) mmol/L BUN (7.0-18.0) mg/dL Creatinine (0.8-1.3) mg/dL Est Cr Clr Drug Dosing mL/min Estimated GFR (MDRD) ml/min Glucose (74-106) mg/dL POC Glucose (60-110) mg/dL Serum Osmolality 266 L (275-295) mosm/kg Calcium (8.5-10.1) mg/dL Phosphorus (2.6-4.7) mg/dL Magnesium (1.8-2.4) mg/dL Total Bilirubin (0.2-1.0) mg/dL AST (15-37) IU/L ALT (14-63) IU/L Alkaline Phosphatase (46-116) U/L Total Protein (6.4-8.2) g/dL Albumin (3.4-5.0) g/dL Globulin (2.6-4.0) g/dL Albumin/Globulin Ratio (0.9-1.6) Urine Osmolality 535 (300-900) mosm/kg 07/31/20 07/31/20 07/31/20 Range/Units 04:40 04:40 04:40 WBC (4.0-11.0) K/uL RBC (4.50-5.90) M/uL Hgb (13.0-17.0) g/dL Hct (38.0-50.0) % MCV (80.0-98.0) fL MCH (27.0-32.0) pg MCHC (31.0-37.0) g/dL RDW Std Deviation (28.0-62.0) fl RDW Coeff of Conchita (11.0-15.0) % Plt Count (150-400) K/uL MPV (7.40-12.00) fL Neut % (Auto) (48.0-80.0) % Lymph % (Auto) (16.0-40.0) % Erie % (Auto) (0.0-15.0) % Eos % (Auto) (0.0-7.0) % Baso % (Auto) (0.0-1.5) % Neut # (Auto) (1.4-5.7) K/uL Lymph # (Auto) (0.6-2.4) K/uL Erie # (Auto) (0.0-0.8) K/uL Eos # (Auto) (0.0-0.7) K/uL Baso # (Auto) (0.0-0.1) K/uL Nucleated RBC % /100WBC Nucleated RBCs # K/uL Lactate (0.20-2.00) mmol/L Sodium 127 L (136-148) mmol/L Potassium 2.9 L (3.5-5.1) mmol/L Chloride 92 L (98-107) mmol/L Carbon Dioxide 19.7 L (21.0-32.0) mmol/L BUN 26 H (7.0-18.0) mg/dL Creatinine 0.9 (0.8-1.3) mg/dL Est Cr Clr Drug Dosing 94.94 mL/min Estimated GFR (MDRD) > 60.0 ml/min Glucose 154 H (74-106) mg/dL POC Glucose (60-110) mg/dL Serum Osmolality (275-295) mosm/kg Calcium 8.6 (8.5-10.1) mg/dL Phosphorus 2.4 L (2.6-4.7) mg/dL Magnesium 2.1 (1.8-2.4) mg/dL Total Bilirubin 0.8 (0.2-1.0) mg/dL AST 28 (15-37) IU/L ALT 26 (14-63) IU/L Alkaline Phosphatase 52 (46-116) U/L Total Protein 6.1 L (6.4-8.2) g/dL Albumin 2.3 L (3.4-5.0) g/dL Globulin 3.8 (2.6-4.0) g/dL Albumin/Globulin Ratio 0.6 L (0.9-1.6) Urine Osmolality (300-900) mosm/kg 07/31/20 07/31/20 07/31/20 Range/Units 05:59 08:40 11:37 WBC (4.0-11.0) K/uL RBC (4.50-5.90) M/uL Hgb (13.0-17.0) g/dL Hct (38.0-50.0) % MCV (80.0-98.0) fL MCH (27.0-32.0) pg MCHC (31.0-37.0) g/dL RDW Std Deviation (28.0-62.0) fl RDW Coeff of Conchita (11.0-15.0) % Plt Count (150-400) K/uL MPV (7.40-12.00) fL Neut % (Auto) (48.0-80.0) % Lymph % (Auto) (16.0-40.0) % [place] % (Auto) (0.0-15.0) % Eos % (Auto) (0.0-7.0) % Baso % (Auto) (0.0-1.5) % Neut # (Auto) (1.4-5.7) K/uL Lymph # (Auto) (0.6-2.4) K/uL Erie # (Auto) (0.0-0.8) K/uL Eos # (Auto) (0.0-0.7) K/uL Baso # (Auto) (0.0-0.1) K/uL Nucleated RBC % /100WBC Nucleated RBCs # K/uL Lactate 1.6 (0.20-2.00) mmol/L Sodium (136-148) mmol/L Potassium (3.5-5.1) mmol/L Chloride (98-107) mmol/L Carbon Dioxide (21.0-32.0) mmol/L BUN (7.0-18.0) mg/dL Creatinine (0.8-1.3) mg/dL Est Cr Clr Drug Dosing mL/min Estimated GFR (MDRD) ml/min Glucose (74-106) mg/dL POC Glucose 145 H 178 H (60-110) mg/dL Serum Osmolality (275-295) mosm/kg Calcium (8.5-10.1) mg/dL Phosphorus (2.6-4.7) mg/dL Magnesium (1.8-2.4) mg/dL Total Bilirubin (0.2-1.0) mg/dL AST (15-37) IU/L ALT (14-63) IU/L Alkaline Phosphatase (46-116) U/L Total Protein (6.4-8.2) g/dL Albumin (3.4-5.0) g/dL Globulin (2.6-4.0) g/dL Albumin/Globulin Ratio (0.9-1.6) Urine Osmolality (300-900) mosm/kg 07/31/20 Range/Units 16:33 WBC (4.0-11.0) K/uL RBC (4.50-5.90) M/uL Hgb (13.0-17.0) g/dL Hct (38.0-50.0) % MCV (80.0-98.0) fL MCH (27.0-32.0) pg MCHC (31.0-37.0) g/dL RDW Std Deviation (28.0-62.0) fl RDW Coeff of Conchita (11.0-15.0) % Plt Count (150-400) K/uL MPV (7.40-12.00) fL Neut % (Auto) (48.0-80.0) % Lymph % (Auto) (16.0-40.0) % [place] % (Auto) (0.0-15.0) % Eos % (Auto) (0.0-7.0) % Baso % (Auto) (0.0-1.5) % Neut # (Auto) (1.4-5.7) K/uL Lymph # (Auto) (0.6-2.4) K/uL [place] # (Auto) (0.0-0.8) K/uL Eos # (Auto) (0.0-0.7) K/uL Baso # (Auto) (0.0-0.1) K/uL Nucleated RBC % /100WBC Nucleated RBCs # K/uL Lactate (0.20-2.00) mmol/L Sodium (136-148) mmol/L Potassium (3.5-5.1) mmol/L Chloride (98-107) mmol/L Carbon Dioxide (21.0-32.0) mmol/L BUN (7.0-18.0) mg/dL Creatinine (0.8-1.3) mg/dL Est Cr Clr Drug Dosing mL/min Estimated GFR (MDRD) ml/min Glucose (74-106) mg/dL POC Glucose 207 H (60-110) mg/dL Serum Osmolality (275-295) mosm/kg Calcium (8.5-10.1) mg/dL Phosphorus (2.6-4.7) mg/dL Magnesium (1.8-2.4) mg/dL Total Bilirubin (0.2-1.0) mg/dL AST (15-37) IU/L ALT (14-63) IU/L Alkaline Phosphatase (46-116) U/L Total Protein (6.4-8.2) g/dL Albumin (3.4-5.0) g/dL Globulin (2.6-4.0) g/dL Albumin/Globulin Ratio (0.9-1.6) Urine Osmolality (300-900) mosm/kg Myron Results Last 24 Hours: Microbiology 07/29/20 13:15 Stool Culture - Preliminary Stool / Feces Shiga Toxin I & II - Final 07/29/20 09:57 Aerobic Blood Culture - Final Blood - Venous - Lab Draw Streptococcus Group A Anaerobic Blood Culture - Preliminary NO GROWTH AFTER 2 DAYS 07/29/20 09:43 Aerobic Blood Culture - Preliminary Blood - Venous NO GROWTH AFTER 2 DAYS Anaerobic Blood Culture - Preliminary NO GROWTH AFTER 2 DAYS Med Orders - Current: Current Medications Acetaminophen (Tylenol Extra Strength) 500 mg PO Q6H PRN PRN Reason: Pain Last Admin: 07/31/20 01:58 Dose: 500 mg Documented by: Albuterol/Ipratropium (Duoneb 3.0-0.5 Mg/3 Ml) 3 ml NEB Q4HRRT PRN PRN Reason: dyspnea/wheezing Last Admin: 07/30/20 15:03 Dose: 3 ml Documented by: Apixaban (Eliquis) 5 mg PO BID [facility] Last Admin: 07/31/20 20:56 Dose: 5 mg Documented by: Carvedilol (Coreg) 25 mg PO BID [facility] Last Admin: 07/31/20 21:14 Dose: Not Given Documented by: Dextrose/Water (Dextrose 50% In Water) 50 ml IV ASDIRECTED PRN PRN Reason: Hypoglycemia Diltiazem HCl (Cardizem Cd) 120 mg PO DAILY [facility] Last Admin: 07/31/20 08:16 Dose: 120 mg Documented by: Diltiazem HCl (Diltiazem) 20 mg IVPUSH Q6H PRN PRN Reason: Tachycardia Last Admin: 07/31/20 16:49 Dose: 20 mg Documented by: Furosemide (Lasix) 20 mg PO DAILY [facility] Last Admin: 07/31/20 10:34 Dose: 20 mg Documented by: Glucagon (Glucagen) 1 mg IM ASDIRECTED PRN PRN Reason: Hypoglycemia Lactated Ringer's (Ringers, Lactated) 1,000 mls @ 999 mls/hr IV ASDIRECTED [facility] Last Admin: 07/29/20 09:52 Dose: 999 mls/hr Documented by: Lactated Ringer's (Ringers, Lactated) 1,000 mls @ 500 mls/hr IV ASDIRECTED [facility] Last Admin: 07/29/20 09:53 Dose: 500 mls/hr Documented by: Clindamycin Phosphate 900 mg/ (Premix) 50 mls @ 89.286 mls/hr IV Q8H [facility] Last Admin: 07/31/20 17:52 Dose: 89.286 mls/hr Documented by: Ceftriaxone Sodium/Dextrose 2 (gm/ Premix) 50 mls @ 100 mls/hr IV Q24H [facility] Last Admin: 07/31/20 10:34 Dose: 100 mls/hr Documented by: Insulin Aspart (Novolog) 0 unit SUBCUT TIDAC [facility]; Protocol Last Admin: 07/31/20 17:57 Dose: 4 units Documented by: Lisinopril (Prinivil) 10 mg PO DAILY [facility] Last Admin: 07/31/20 08:17 Dose: 10 mg Documented by: Nystatin (Nystop) 1 gm TOP TID [facility] Last Admin: 07/31/20 21:14 Dose: 1 gm Documented by: Oxycodone HCl (Oxycodone) 5 mg PO Q8H PRN PRN Reason: Pain Last Admin: 07/31/20 21:24 Dose: 5 mg Documented by: Sodium Chloride (Saline Flush) 10 ml FLUSH ASDIRECTED PRN PRN Reason: Keep Vein Open Last Admin: 07/29/20 09:53 Dose: 10 ml Documented by: Sodium Chloride (Saline Flush) 2.5 ml FLUSH ASDIRECTED PRN PRN Reason: Keep Vein Open Last Admin: 07/29/20 09:53 Dose: 2.5 ml Documented by: Sodium Chloride ([place] Saline Nasal Gel) 0 gm SCOTT ASDIRECTED PRN PRN Reason: Nasal Dryness Last Admin: 07/29/20 21:54 Dose: 1 spray Documented by: Discontinued Medications Acetaminophen (Tylenol Extra Strength) 1,000 mg PO ONETIME ONE Stop: 07/29/20 12:39 Last Admin: 07/29/20 13:35 Dose: 1,000 mg Documented by: Furosemide (Lasix) 50 mg PO DAILY [facility] Furosemide (Lasix) 40 mg IVPUSH NOW ONE Stop: 07/30/20 19:06 Last Admin: 07/30/20 19:47 Dose: Not Given Documented by: Piperacillin Sod/Tazobactam (Sod 4.5 gm/ Sodium Chloride) 100 mls @ 200 mls/hr IV STAT ONE Stop: 07/29/20 10:10 Last Admin: 07/29/20 12:09 Dose: Not Given Documented by: Gentamicin Sulfate 160 mg/ (Sodium Chloride) 104 mls @ 200 mls/hr IV STAT ONE Stop: 07/29/20 10:10 Last Admin: 07/29/20 10:51 Dose: 200 mls/hr Documented by: Piperacillin Sod/Tazobactam (Sod 4.5 gm/ Sodium Chloride) 100 mls @ 200 mls/hr IV STAT ONE Stop: 07/29/20 10:29 Last Admin: 07/29/20 12:23 Dose: Not Given Documented by: Vancomycin HCl 2 gm/ Premix 400 mls @ 200 mls/hr IV ONETIME ONE Stop: 07/29/20 13:59 Last Admin: 07/29/20 11:55 Dose: 200 mls/hr Documented by: Piperacillin Sod/Tazobactam (Sod 4.5 gm/ Sodium Chloride) 100 mls @ 200 mls/hr IV STAT ONE Stop: 07/29/20 12:44 Last Admin: 07/29/20 12:21 Dose: 200 mls/hr Documented by: Piperacillin Sod/Tazobactam (Sod 4.5 gm/ Sodium Chloride) 100 mls @ 100 mls/hr IV Q6H [facility] Last Admin: 07/31/20 05:10 Dose: 100 mls/hr Documented by: Vancomycin HCl 1.5 gm/ Premix 300 mls @ 200 mls/hr IV Q12H [facility] Last Admin: 07/31/20 00:29 Dose: 200 mls/hr Documented by: Sodium Chloride (Normal Saline) 1,000 mls @ 500 mls/hr IV STAT ONE Stop: 07/29/20 20:51 Last Admin: 07/29/20 19:18 Dose: 500 mls/hr Documented by: Sodium Chloride (Normal Saline) 500 mls @ 250 mls/hr IV NOW STA Stop: 07/30/20 11:33 Last Admin: 07/30/20 13:24 Dose: 250 mls/hr Documented by: Sodium Chloride (Normal Saline) 500 mls @ 250 mls/hr IV ONETIME ONE Stop: 07/30/20 18:41 Last Admin: 07/30/20 17:46 Dose: 250 mls/hr Documented by: Iopamidol (Isovue Multipack-370 (76%)) 100 ml IVPUSH ONETIME STA Stop: 07/29/20 11:31 Last Admin: 07/29/20 11:30 Dose: 100 ml Documented by: Morphine Sulfate (Morphine) 2 mg IVPUSH ONETIME ONE Stop: 07/29/20 21:35 Last Admin: 07/29/20 23:33 Dose: 1 mg Documented by: Potassium Chloride (Klor-Con M20) 40 meq PO ONETIME ONE Stop: 07/31/20 07:53 Last Admin: 07/31/20 08:16 Dose: 40 meq Documented by: Potassium Chloride (Klor-Con M20) 40 meq PO ONETIME ONE Stop: 07/31/20 08:31 Last Admin: 07/31/20 10:33 Dose: Not Given Documented by: Spironolactone (Aldactone) 25 mg PO DAILY [facility] Last Admin: 07/30/20 10:19 Dose: 25 mg Documented by: Vancomycin HCl (Pharmacy To Dose - Vancomycin) 1 dose .XX ASDIRECTED [facility] Sepsis Event Note - Focused Exam Vital Signs: Vital Signs Temp Pulse Pulse Resp BP BP Pulse Ox 07/31/20 19:47 136 H 109/41 L 07/31/20 19:45 36.7 C 136 H 16 109/41 L 95 07/31/20 17:03 109/59 L 07/31/20 16:58 102 H 24 H 96/61 95 07/31/20 16:48 129 H 116/74 07/31/20 16:00 36.4 C 107 H 18 108/61 100 07/31/20 12:00 36.2 C 112 H 18 99/57 L 93 L - Problem List & Annotations (1) Hyponatremia SNOMED Code(s): 48265398 Code(s): E87.1 - HYPO-OSMOLALITY AND HYPONATREMIA Status: Acute Current Visit: Yes (2) Diabetes SNOMED Code(s): 03665761 Code(s): E11.9 - TYPE 2 DIABETES MELLITUS WITHOUT COMPLICATIONS Status: Acute Current Visit: Yes (3) Cellulitis SNOMED Code(s): 630953213 Code(s): L03.90 - CELLULITIS, UNSPECIFIED Status: Acute Current Visit: Yes (4) Afib SNOMED Code(s): 83023597 Code(s): I48.91 - UNSPECIFIED ATRIAL FIBRILLATION Status: Acute Current Visit: Yes (5) Heart failure SNOMED Code(s): 23817079 Code(s): I50.9 - HEART FAILURE, UNSPECIFIED Status: Acute Current Visit: Yes (6) Foot ulcer SNOMED Code(s): 25970619 Code(s): L97.509 - NON-PRESSURE CHRONIC ULCER OTH PRT UNSP FOOT W UNSP SEVERITY Status: Acute Current Visit: Yes - Plan Plan:: I have seen and evaluated the patient and agree with the residents note unless specified in my note
[2020-07-31] MEDS: cefTRIAXone 2 GM in Premix Bag 1 BAG IV SCH (10:34)
[2020-07-31] MEDS: Furosemide 20 MG Tab PO SCH (10:34)
[2020-07-31] MEDS: Clindamycin Phosphate in D5W 900 MG in Premix Bag 1 BAG IV SCH ×4 (11:34→17:52)
[2020-08-01] MEDS: Diltiazem 25 MG/5 ML SDV IVPUSH PRN ×3 (00:27→16:01)
[2020-08-01] MEDS: Clindamycin Phosphate in D5W 900 MG in Premix Bag 1 BAG IV SCH ×6 (02:49→17:27)
[2020-08-01 06:03] LABS: BLOOD UREA NITROGEN,BUN 24 mg/dL (7.0-18.0); CARBON DIOXIDE,CO2 24.7 mmol/L (21.0-32.0); CHLORIDE,CL 92 mmol/L (98-107); GLUCOSE RANDOM 163 mg/dL (74-106); SODIUM,NA 128 mmol/L (136-148)
[2020-08-01] MEDS: Nystatin Topical Powder 15 GM Bottle TOP SCH ×3 (06:15→23:10)
[2020-08-01] MEDS ORDERED: Potassium Chloride 20 MEQ Tab.ER PO ONE ×2 (07:40→14:00)
[2020-08-01] MEDS: Apixaban 5 MG Tab PO SCH ×2 (08:25→20:50)
[2020-08-01] MEDS: Furosemide 20 MG Tab PO SCH (08:25)
[2020-08-01] MEDS: Diltiazem 120 MG Cap.CD PO SCH (08:26)
[2020-08-01] MEDS: Lisinopril 10 MG Tab PO SCH (08:26)
[2020-08-01] MEDS: Carvedilol 25 MG Tab PO SCH ×2 (08:26→17:11)
[2020-08-01] MEDS: Insulin Aspart 100 Units/ML 3 ML Pen SUBCUT SCH ×3 (08:36→18:48)
[2020-08-01] MEDS ORDERED: Acetaminophen 500 MG Tab PO PRN (09:05)
--- NOTE | 2020-08-01 09:10 | PCM.PN ---
<Roshan Akhtar - Last Filed: 08/01/20 12:36> - General Info Date of Service: 08/01/20 Subjective Update: Mentions swelling and pain in leg is slightly worse this AM. Slept better last night. Requesting more fluid to drink (fluid restriction of 1.8 liters) - Review of Systems General: Reports: No Symptoms HEENT: Reports: No Symptoms Pulmonary: Reports: No Symptoms Cardiovascular: Reports: No Symptoms Gastrointestinal: Reports: No Symptoms Genitourinary: Reports: No Symptoms Musculoskeletal: Reports: Back Pain Skin: Reports: Rash, Other. Denies: Pruritis Neurological: Reports: No Symptoms Psychiatric: Reports: No Symptoms - Patient Data Vitals - Most Recent: Last Vital Signs Temp 96.2 F L 08/01/20 07:28 Pulse 127 H 08/01/20 08:26 Resp 22 H 08/01/20 07:28 BP 126/70 08/01/20 08:26 Pulse Ox 93 L 08/01/20 07:28 Weight - Most Recent: 137.438 kg I&O - Last 24 Hours: Intake & Output 07/31/20 08/01/20 08/01/20 22:59 06:59 14:59 Intake Total 750 800 Output Total 350 650 Balance 400 150 Lab Results Last 24 Hours: Laboratory Results - last 24 hr 07/31/20 07/31/20 08/01/20 Range/Units 11:37 16:33 04:55 WBC 16.69 H (4.0-11.0) K/uL RBC 4.60 (4.50-5.90) M/uL Hgb 12.8 L (13.0-17.0) g/dL Hct 39.5 (38.0-50.0) % MCV 85.9 (80.0-98.0) fL MCH 27.8 (27.0-32.0) pg MCHC 32.4 (31.0-37.0) g/dL RDW Std Deviation 48.9 (28.0-62.0) fl RDW Coeff of Conchita 15 (11.0-15.0) % Plt Count 144 L (150-400) K/uL MPV 9.30 (7.40-12.00) fL Neut % (Auto) 89.2 H (48.0-80.0) % Lymph % (Auto) 6.4 L (16.0-40.0) % [place] % (Auto) 4.1 (0.0-15.0) % Eos % (Auto) 0.2 (0.0-7.0) % Baso % (Auto) 0.1 (0.0-1.5) % Neut # (Auto) 14.9 H (1.4-5.7) K/uL Lymph # (Auto) 1.1 (0.6-2.4) K/uL [place] # (Auto) 0.7 (0.0-0.8) K/uL Eos # (Auto) 0.0 (0.0-0.7) K/uL Baso # (Auto) 0.0 (0.0-0.1) K/uL Nucleated RBC % 0.0 /100WBC Nucleated RBCs # 0 K/uL Sodium (136-148) mmol/L Potassium (3.5-5.1) mmol/L Chloride (98-107) mmol/L Carbon Dioxide (21.0-32.0) mmol/L BUN (7.0-18.0) mg/dL Creatinine (0.8-1.3) mg/dL Est Cr Clr Drug Dosing mL/min Estimated GFR (MDRD) ml/min Glucose (74-106) mg/dL POC Glucose 178 H 207 H (60-110) mg/dL Calcium (8.5-10.1) mg/dL Total Bilirubin (0.2-1.0) mg/dL AST (15-37) IU/L ALT (14-63) IU/L Alkaline Phosphatase (46-116) U/L Total Protein (6.4-8.2) g/dL Albumin (3.4-5.0) g/dL Globulin (2.6-4.0) g/dL Albumin/Globulin Ratio (0.9-1.6) 08/01/20 08/01/20 Range/Units 04:55 06:13 WBC (4.0-11.0) K/uL RBC (4.50-5.90) M/uL Hgb (13.0-17.0) g/dL Hct (38.0-50.0) % MCV (80.0-98.0) fL MCH (27.0-32.0) pg MCHC (31.0-37.0) g/dL RDW Std Deviation (28.0-62.0) fl RDW Coeff of Conchita (11.0-15.0) % Plt Count (150-400) K/uL MPV (7.40-12.00) fL Neut % (Auto) (48.0-80.0) % Lymph % (Auto) (16.0-40.0) % [place] % (Auto) (0.0-15.0) % Eos % (Auto) (0.0-7.0) % Baso % (Auto) (0.0-1.5) % Neut # (Auto) (1.4-5.7) K/uL Lymph # (Auto) (0.6-2.4) K/uL [place] # (Auto) (0.0-0.8) K/uL Eos # (Auto) (0.0-0.7) K/uL Baso # (Auto) (0.0-0.1) K/uL Nucleated RBC % /100WBC Nucleated RBCs # K/uL Sodium 128 L (136-148) mmol/L Potassium 3.0 L (3.5-5.1) mmol/L Chloride 92 L (98-107) mmol/L Carbon Dioxide 24.7 (21.0-32.0) mmol/L BUN 24 H (7.0-18.0) mg/dL Creatinine 0.8 (0.8-1.3) mg/dL Est Cr Clr Drug Dosing 106.81 mL/min Estimated GFR (MDRD) > 60.0 ml/min Glucose 163 H (74-106) mg/dL POC Glucose 152 H (60-110) mg/dL Calcium 9.1 (8.5-10.1) mg/dL Total Bilirubin 0.6 (0.2-1.0) mg/dL AST 20 (15-37) IU/L ALT 29 (14-63) IU/L Alkaline Phosphatase 72 (46-116) U/L Total Protein 6.2 L (6.4-8.2) g/dL Albumin 2.2 L (3.4-5.0) g/dL Globulin 4.0 (2.6-4.0) g/dL Albumin/Globulin Ratio 0.6 L (0.9-1.6) Myron Results Last 24 Hours: Microbiology 07/29/20 13:15 Stool Culture - Preliminary Stool / Feces Shiga Toxin I & II - Final 07/29/20 09:57 Aerobic Blood Culture - Final Blood - Venous - Lab Draw Streptococcus Group A Anaerobic Blood Culture - Preliminary NO GROWTH AFTER 2 DAYS 07/29/20 09:43 Aerobic Blood Culture - Preliminary Blood - Venous NO GROWTH AFTER 2 DAYS Anaerobic Blood Culture - Preliminary NO GROWTH AFTER 2 DAYS Med Orders - Current: Current Medications Acetaminophen (Tylenol Extra Strength) 1,000 mg PO Q6H PRN PRN Reason: Pain Albuterol/Ipratropium (Duoneb 3.0-0.5 Mg/3 Ml) 3 ml NEB Q4HRRT PRN PRN Reason: dyspnea/wheezing Last Admin: 07/30/20 15:03 Dose: 3 ml Documented by: Apixaban (Eliquis) 5 mg PO BID [facility] Last Admin: 08/01/20 08:25 Dose: 5 mg Documented by: Carvedilol (Coreg) 25 mg PO BID [facility] Last Admin: 08/01/20 08:26 Dose: 25 mg Documented by: Dextrose/Water (Dextrose 50% In Water) 50 ml IV ASDIRECTED PRN PRN Reason: Hypoglycemia Diltiazem HCl (Cardizem Cd) 120 mg PO DAILY [facility] Last Admin: 08/01/20 08:26 Dose: 120 mg Documented by: Diltiazem HCl (Diltiazem) 20 mg IVPUSH Q6H PRN PRN Reason: Tachycardia Last Admin: 08/01/20 06:14 Dose: 20 mg Documented by: Furosemide (Lasix) 20 mg PO DAILY [facility] Last Admin: 08/01/20 08:25 Dose: 20 mg Documented by: Glucagon (Glucagen) 1 mg IM ASDIRECTED PRN PRN Reason: Hypoglycemia Lactated Ringer's (Ringers, Lactated) 1,000 mls @ 999 mls/hr IV ASDIRECTED [facility] Last Admin: 07/29/20 09:52 Dose: 999 mls/hr Documented by: Lactated Ringer's (Ringers, Lactated) 1,000 mls @ 500 mls/hr IV ASDIRECTED [facility] Last Admin: 07/29/20 09:53 Dose: 500 mls/hr Documented by: Clindamycin Phosphate 900 mg/ (Premix) 50 mls @ 89.286 mls/hr IV Q8H [facility] Last Admin: 08/01/20 02:49 Dose: 89.286 mls/hr Documented by: Ceftriaxone Sodium/Dextrose 2 (gm/ Premix) 50 mls @ 100 mls/hr IV Q24H [facility] Last Admin: 07/31/20 10:34 Dose: 100 mls/hr Documented by: Insulin Aspart (Novolog) 0 unit SUBCUT TIDAC [facility]; Protocol Last Admin: 08/01/20 08:36 Dose: 2 units Documented by: Lisinopril (Prinivil) 10 mg PO DAILY [facility] Last Admin: 08/01/20 08:26 Dose: 10 mg Documented by: Nystatin (Nystop) 1 gm TOP TID [facility] Last Admin: 08/01/20 06:15 Dose: 1 gm Documented by: Oxycodone HCl (Oxycodone) 5 mg PO Q8H PRN PRN Reason: Pain Last Admin: 07/31/20 21:24 Dose: 5 mg Documented by: Sodium Chloride (Saline Flush) 10 ml FLUSH ASDIRECTED PRN PRN Reason: Keep Vein Open Last Admin: 07/29/20 09:53 Dose: 10 ml Documented by: Sodium Chloride (Saline Flush) 2.5 ml FLUSH ASDIRECTED PRN PRN Reason: Keep Vein Open Last Admin: 07/29/20 09:53 Dose: 2.5 ml Documented by: Sodium Chloride ([place] Saline Nasal Gel) 0 gm SCOTT ASDIRECTED PRN PRN Reason: Nasal Dryness Last Admin: 07/29/20 21:54 Dose: 1 spray Documented by: Discontinued Medications Acetaminophen (Tylenol Extra Strength) 1,000 mg PO ONETIME ONE Stop: 07/29/20 12:39 Last Admin: 07/29/20 13:35 Dose: 1,000 mg Documented by: Acetaminophen (Tylenol Extra Strength) 500 mg PO Q6H PRN PRN Reason: Pain Last Admin: 07/31/20 01:58 Dose: 500 mg Documented by: Furosemide (Lasix) 50 mg PO DAILY [facility] Furosemide (Lasix) 40 mg IVPUSH NOW ONE Stop: 07/30/20 19:06 Last Admin: 07/30/20 19:47 Dose: Not Given Documented by: Piperacillin Sod/Tazobactam (Sod 4.5 gm/ Sodium Chloride) 100 mls @ 200 mls/hr IV STAT ONE Stop: 07/29/20 10:10 Last Admin: 07/29/20 12:09 Dose: Not Given Documented by: Gentamicin Sulfate 160 mg/ (Sodium Chloride) 104 mls @ 200 mls/hr IV STAT ONE Stop: 07/29/20 10:10 Last Admin: 07/29/20 10:51 Dose: 200 mls/hr Documented by: Piperacillin Sod/Tazobactam (Sod 4.5 gm/ Sodium Chloride) 100 mls @ 200 mls/hr IV STAT ONE Stop: 07/29/20 10:29 Last Admin: 07/29/20 12:23 Dose: Not Given Documented by: Vancomycin HCl 2 gm/ Premix 400 mls @ 200 mls/hr IV ONETIME ONE Stop: 07/29/20 13:59 Last Admin: 07/29/20 11:55 Dose: 200 mls/hr Documented by: Piperacillin Sod/Tazobactam (Sod 4.5 gm/ Sodium Chloride) 100 mls @ 200 mls/hr IV STAT ONE Stop: 07/29/20 12:44 Last Admin: 07/29/20 12:21 Dose: 200 mls/hr Documented by: Piperacillin Sod/Tazobactam (Sod 4.5 gm/ Sodium Chloride) 100 mls @ 100 mls/hr IV Q6H [facility] Last Admin: 07/31/20 05:10 Dose: 100 mls/hr Documented by: Vancomycin HCl 1.5 gm/ Premix 300 mls @ 200 mls/hr IV Q12H [facility] Last Admin: 07/31/20 00:29 Dose: 200 mls/hr Documented by: Sodium Chloride (Normal Saline) 1,000 mls @ 500 mls/hr IV STAT ONE Stop: 07/29/20 20:51 Last Admin: 07/29/20 19:18 Dose: 500 mls/hr Documented by: Sodium Chloride (Normal Saline) 500 mls @ 250 mls/hr IV NOW STA Stop: 07/30/20 11:33 Last Admin: 07/30/20 13:24 Dose: 250 mls/hr Documented by: Sodium Chloride (Normal Saline) 500 mls @ 250 mls/hr IV ONETIME ONE Stop: 07/30/20 18:41 Last Admin: 07/30/20 17:46 Dose: 250 mls/hr Documented by: Iopamidol (Isovue Multipack-370 (76%)) 100 ml IVPUSH ONETIME STA Stop: 07/29/20 11:31 Last Admin: 07/29/20 11:30 Dose: 100 ml Documented by: Morphine Sulfate (Morphine) 2 mg IVPUSH ONETIME ONE Stop: 07/29/20 21:35 Last Admin: 07/29/20 23:33 Dose: 1 mg Documented by: Potassium Chloride (Klor-Con M20) 40 meq PO ONETIME ONE Stop: 07/31/20 07:53 Last Admin: 07/31/20 08:16 Dose: 40 meq Documented by: Potassium Chloride (Klor-Con M20) 40 meq PO ONETIME ONE Stop: 07/31/20 08:31 Last Admin: 07/31/20 10:33 Dose: Not Given Documented by: Potassium Chloride (Klor-Con M20) 40 meq PO ONETIME ONE Stop: 08/01/20 07:41 Last Admin: 08/01/20 08:24 Dose: 40 meq Documented by: Spironolactone (Aldactone) 25 mg PO DAILY [facility] Last Admin: 07/30/20 10:19 Dose: 25 mg Documented by: Vancomycin HCl (Pharmacy To Dose - Vancomycin) 1 dose .XX ASDIRECTED GAEL - Exam Quality Assessment: No: Supplemental Oxygen General: Alert, Oriented, Cooperative HEENT: EOMI Neck: Supple Lungs: Clear to Auscultation, Normal Respiratory Effort Cardiovascular: Irregular Rhythm, Tachycardia GI/Abdominal Exam: Soft, Non-Tender Extremities: Other (right lower extremity :redness slightly larger today compared to yesterady; more circumferential; solitary bullae noted over right lwoer extremity /roofed ... weeping unroofed lesion over right foot dorsum/unchanged ) Wound/Incisions: Drainage, Erythema Neurological: No New Focal Deficit Psy/Mental Status: Alert, Normal Affect Sepsis Event Note - Evaluation Sepsis Screening Result: Sepsis Risk - Focused Exam Vital Signs: Vital Signs Temp Pulse Pulse Resp BP BP Pulse Ox 08/01/20 08:26 127 H 126/70 08/01/20 07:28 96.2 F L 127 H 22 H 126/70 93 L 08/01/20 03:31 08/01/20 03:30 99.3 F 116 H 16 116/72 94 L 07/31/20 23:46 98 F 125 H 20 135/69 96 Pulse Ox 08/01/20 08:26 08/01/20 07:28 08/01/20 03:31 94 L 08/01/20 03:30 07/31/20 23:46 - Problem List & Annotations (1) Hypokalemia SNOMED Code(s): 91603748 Code(s): E87.6 - HYPOKALEMIA Status: Acute Current Visit: Yes (2) Cellulitis SNOMED Code(s): 789314095 Code(s): L03.90 - CELLULITIS, UNSPECIFIED Status: Acute Current Visit: Yes (3) Diabetes SNOMED Code(s): 23511330 Code(s): E11.9 - TYPE 2 DIABETES MELLITUS WITHOUT COMPLICATIONS Status: Acute Current Visit: Yes (4) Foot ulcer SNOMED Code(s): 16177581 Code(s): L97.509 - NON-PRESSURE CHRONIC ULCER OTH PRT UNSP FOOT W UNSP SEVERITY Status: Acute Current Visit: Yes (5) Heart failure SNOMED Code(s): 10530451 Code(s): I50.9 - HEART FAILURE, UNSPECIFIED Status: Acute Current Visit: Yes (6) Hyponatremia SNOMED Code(s): 58281483 Code(s): E87.1 - HYPO-OSMOLALITY AND HYPONATREMIA Status: Acute Current Visit: Yes - Problem List Review Problem List Initiated/Reviewed/Updated: Yes - My Orders Last 24 Hours: My Active Orders 07/31/20 11:09 Consult to Physical Therapy [PT Evaluation and Treatment] [CONS] Routine 08/01/20 09:05 Acetaminophen [Tylenol Extra Strength] 1,000 mg PO Q6H PRN - Plan Plan:: Assessment: 1. right lower extremity cellulitis 2.. Hyponatremia: acute /moderate 3. Past medical history of chronic atrial fibrillation on anticoagulation, hypertension, type 2 diabetes, morbid obesity, congestive heart failure 4. Hypokalemia Plan 1. right lower extremity cellulitis: Group A strep + Bcx :continue Clindamycin + Rocephin. patient may require outpatient infusion and PICC Line placement. 40 mg IV lasix onetime this AM to help w. lower extremity edema and weeping wound . Keep leg elevated; start gabapentin to alleviate radiculopathy pain Repeat blood cultures were negative this AM Continue enterostomal care ; Repeat Lactate this AM negative. Echo ordered w. concerns for Endocarditis 2. Hyponatremia.: acute Hyponatremia; resume Lasix home dose; AO x 4. No AMS. Improving this AM ; resume home lasix 3. DM II: hold home meds :hold trulicity, Jardiance; Continue SSI : medium corrective dose 4. CHD/HTN: continue home meds including Eliquis BP checks q 4 hours COVID and influenza negative 5. Repleted potassium w. 40; recheck in AM 6. Afib: increase dose of coreg to 50 mg BID (hold AM dose today due to labile BP) continue telemetry PRN Diltiazem 20 ordered Continue Eliquis daily I performed a history and physical exam of the patient and discussed management with resident. I have reviewed the residents note and agree with documented findings and plan unless otherwise specified in my note.' I have seen and evaluated the patient and agree with the residents note unless specified in my note <Ilene Corcoran - Last Filed: 08/02/20 18:05> - Patient Data Vitals - Most Recent: Last Vital Signs Temp 36.8 C 08/02/20 11:36 Pulse 108 H 08/02/20 09:00 Resp 16 08/02/20 12:49 BP 110/57 L 08/02/20 12:49 Pulse Ox 94 L 08/02/20 12:49 I&O - Last 24 Hours: Intake & Output 08/02/20 08/02/20 08/02/20 06:59 14:59 22:59 Intake Total 480 1350 Output Total 1175 900 Balance -695 450 Lab Results Last 24 Hours: Laboratory Results - last 24 hr 08/02/20 08/02/20 08/02/20 Range/Units 05:35 05:35 07:31 WBC 19.36 H (4.0-11.0) K/uL RBC 4.64 (4.50-5.90) M/uL Hgb 13.1 (13.0-17.0) g/dL Hct 40.0 (38.0-50.0) % MCV 86.2 (80.0-98.0) fL MCH 28.2 (27.0-32.0) pg MCHC 32.8 (31.0-37.0) g/dL RDW Std Deviation 49.6 (28.0-62.0) fl RDW Coeff of Conchita 16 H (11.0-15.0) % Plt Count 163 (150-400) K/uL MPV 9.00 (7.40-12.00) fL Add Manual Diff YES Neutrophils % (Manual) 69 (48.0-80.0) % Band Neutrophils % 12 % Lymphocytes % (Manual) 15 L (16.0-40.0) % Monocytes % (Manual) 3 (0.0-15.0) % Eosinophils % (Manual) 1 (0.0-7.0) % Nucleated RBC % 0.0 /100WBC Absolute Seg Neuts 13.4 H (1.4-5.7) Band Neutrophils # 2.3 Lymphocytes # (Manual) 2.9 H (0.6-2.4) Monocytes # (Manual) 0.6 (0.0-0.8) Eosinophils # (Manual) 0.2 (0.0-0.7) Nucleated RBCs # 0 K/uL Lactate 1.4 (0.20-2.00) mmol/L Sodium 131 L (136-148) mmol/L Potassium 3.2 L (3.5-5.1) mmol/L Chloride 95 L (98-107) mmol/L Carbon Dioxide 27.7 (21.0-32.0) mmol/L BUN 20 H (7.0-18.0) mg/dL Creatinine 0.8 (0.8-1.3) mg/dL Est Cr Clr Drug Dosing 106.81 mL/min Estimated GFR (MDRD) > 60.0 ml/min Glucose 180 H (74-106) mg/dL Calcium 8.8 (8.5-10.1) mg/dL Magnesium 1.9 (1.8-2.4) mg/dL Total Bilirubin 0.7 (0.2-1.0) mg/dL AST 19 (15-37) IU/L ALT 26 (14-63) IU/L Alkaline Phosphatase 84 (46-116) U/L Total Protein 6.2 L (6.4-8.2) g/dL Albumin 2.2 L (3.4-5.0) g/dL Globulin 4.0 (2.6-4.0) g/dL Albumin/Globulin Ratio 0.6 L (0.9-1.6) Myron Results Last 24 Hours: Microbiology 07/29/20 13:15 Stool Culture - Final Stool / Feces Shiga Toxin I & II - Final 07/31/20 10:23 Aerobic Blood Culture - Preliminary Blood - Venous NO GROWTH AFTER 2 DAYS Anaerobic Blood Culture - Preliminary NO GROWTH AFTER 2 DAYS 07/31/20 10:33 Aerobic Blood Culture - Preliminary Blood - Venous - Lab Draw NO GROWTH AFTER 2 DAYS Anaerobic Blood Culture - Preliminary NO GROWTH AFTER 2 DAYS 07/29/20 09:57 Aerobic Blood Culture - Final Blood - Venous - Lab Draw Streptococcus Group A Anaerobic Blood Culture - Preliminary NO GROWTH AFTER 4 DAYS 07/29/20 09:43 Aerobic Blood Culture - Preliminary Blood - Venous NO GROWTH AFTER 4 DAYS Anaerobic Blood Culture - Preliminary NO GROWTH AFTER 4 DAYS Med Orders - Current: Current Medications Acetaminophen (Tylenol Extra Strength) 1,000 mg PO Q6H PRN PRN Reason: Pain Last Admin: 08/02/20 12:51 Dose: 1,000 mg Documented by: Albuterol/Ipratropium (Duoneb 3.0-0.5 Mg/3 Ml) 3 ml NEB Q4HRRT PRN PRN Reason: dyspnea/wheezing Last Admin: 08/01/20 16:17 Dose: 3 ml Documented by: Apixaban (Eliquis) 5 mg PO BID [facility] Last Admin: 08/02/20 08:48 Dose: 5 mg Documented by: Carvedilol (Coreg) 50 mg PO BIDMEALS [facility] Last Admin: 08/02/20 07:23 Dose: 50 mg Documented by: Dextrose/Water (Dextrose 50% In Water) 50 ml IV ASDIRECTED PRN PRN Reason: Hypoglycemia Diltiazem HCl (Diltiazem) 20 mg IVPUSH Q4H PRN PRN Reason: Tachycardia Last Admin: 08/02/20 05:39 Dose: 20 mg Documented by: Diltiazem HCl (Cardizem Cd) 240 mg PO DAILY [facility] Last Admin: 08/02/20 08:52 Dose: 240 mg Documented by: Furosemide (Lasix) 20 mg PO DAILY [facility] Last Admin: 08/02/20 08:48 Dose: 20 mg Documented by: Gabapentin (Neurontin) 300 mg PO BID [facility] Last Admin: 08/02/20 08:48 Dose: 300 mg Documented by: Glucagon (Glucagen) 1 mg IM ASDIRECTED PRN PRN Reason: Hypoglycemia Sodium Chloride (Normal Saline) 250 mls @ 999 mls/hr IV STAT [facility] Last Admin: 08/01/20 19:57 Dose: 999 mls/hr Documented by: Daptomycin 1,000 mg/ Sodium (Chloride) 20 mls @ 600 mls/hr IV Q24H [facility] Last Admin: 08/02/20 09:37 Dose: 600 mls/hr Documented by: Piperacillin Sod/Tazobactam (Sod 4.5 gm/ Sodium Chloride) 100 mls @ 200 mls/hr IV Q6H [facility] Lactated Ringer's (Ringers, Lactated) 1,000 mls @ 125 mls/hr IV ASDIRECTED GAEL Phenylephrine HCl 10 mg/ (Sodium Chloride) 100 mls @ 24 mls/hr IV TITRATE [facility]; Protocol Last Admin: 08/02/20 13:00 Dose: 40 mcg/min, 24 mls/hr Documented by: Insulin Aspart (Novolog) 0 unit SUBCUT TIDAC [facility]; Protocol Last Admin: 08/02/20 10:00 Dose: 4 units Documented by: Lisinopril (Prinivil) 10 mg PO DAILY [facility] Last Admin: 08/02/20 08:49 Dose: 10 mg Documented by: Nystatin (Nystop) 1 gm TOP TID [facility] Last Admin: 08/02/20 06:25 Dose: 1 gm Documented by: Oxycodone HCl (Oxycodone) 5 mg PO Q8H PRN PRN Reason: Pain Last Admin: 07/31/20 21:24 Dose: 5 mg Documented by: Sodium Chloride (Saline Flush) 10 ml FLUSH ASDIRECTED PRN PRN Reason: Keep Vein Open Last Admin: 07/29/20 09:53 Dose: 10 ml Documented by: Sodium Chloride (Saline Flush) 2.5 ml FLUSH ASDIRECTED PRN PRN Reason: Keep Vein Open Last Admin: 07/29/20 09:53 Dose: 2.5 ml Documented by: Sodium Chloride ([place] Saline Nasal Gel) 0 gm SCOTT ASDIRECTED PRN PRN Reason: Nasal Dryness Last Admin: 07/29/20 21:54 Dose: 1 spray Documented by: Discontinued Medications Acetaminophen (Tylenol Extra Strength) 1,000 mg PO ONETIME ONE Stop: 07/29/20 12:39 Last Admin: 07/29/20 13:35 Dose: 1,000 mg Documented by: Acetaminophen (Tylenol Extra Strength) 500 mg PO Q6H PRN PRN Reason: Pain Last Admin: 07/31/20 01:58 Dose: 500 mg Documented by: Carvedilol (Coreg) 25 mg PO BID [facility] Last Admin: 08/01/20 08:26 Dose: 25 mg Documented by: Carvedilol (Coreg) 50 mg PO BID [facility] Carvedilol (Coreg) 25 mg PO ONETIME ONE Stop: 08/01/20 09:41 Last Admin: 08/01/20 10:45 Dose: Not Given Documented by: Diltiazem HCl (Cardizem Cd) 120 mg PO DAILY [facility] Last Admin: 08/01/20 08:26 Dose: 120 mg Documented by: Diltiazem HCl (Diltiazem) 20 mg IVPUSH Q6H PRN PRN Reason: Tachycardia Last Admin: 08/01/20 16:01 Dose: 20 mg Documented by: Furosemide (Lasix) 50 mg PO DAILY [facility] Furosemide (Lasix) 40 mg IVPUSH NOW ONE Stop: 07/30/20 19:06 Last Admin: 07/30/20 19:47 Dose: Not Given Documented by: Furosemide (Lasix) 40 mg IVPUSH ONETIME ONE Stop: 08/01/20 11:48 Last Admin: 08/01/20 14:47 Dose: 40 mg Documented by: Piperacillin Sod/Tazobactam (Sod 4.5 gm/ Sodium Chloride) 100 mls @ 200 mls/hr IV STAT ONE Stop: 07/29/20 10:10 Last Admin: 07/29/20 12:09 Dose: Not Given Documented by: Gentamicin Sulfate 160 mg/ (Sodium Chloride) 104 mls @ 200 mls/hr IV STAT ONE Stop: 07/29/20 10:10 Last Admin: 07/29/20 10:51 Dose: 200 mls/hr Documented by: Lactated Ringer's (Ringers, Lactated) 1,000 mls @ 999 mls/hr IV ASDIRECTED [facility] Last Admin: 07/29/20 09:52 Dose: 999 mls/hr Documented by: Lactated Ringer's (Ringers, Lactated) 1,000 mls @ 500 mls/hr IV ASDIRECTED [facility] Last Admin: 07/29/20 09:53 Dose: 500 mls/hr Documented by: Piperacillin Sod/Tazobactam (Sod 4.5 gm/ Sodium Chloride) 100 mls @ 200 mls/hr IV STAT ONE Stop: 07/29/20 10:29 Last Admin: 07/29/20 12:23 Dose: Not Given Documented by: Vancomycin HCl 2 gm/ Premix 400 mls @ 200 mls/hr IV ONETIME ONE Stop: 07/29/20 13:59 Last Admin: 07/29/20 11:55 Dose: 200 mls/hr Documented by: Piperacillin Sod/Tazobactam (Sod 4.5 gm/ Sodium Chloride) 100 mls @ 200 mls/hr IV STAT ONE Stop: 07/29/20 12:44 Last Admin: 07/29/20 12:21 Dose: 200 mls/hr Documented by: Piperacillin Sod/Tazobactam (Sod 4.5 gm/ Sodium Chloride) 100 mls @ 100 mls/hr IV Q6H [facility] Last Admin: 07/31/20 05:10 Dose: 100 mls/hr Documented by: Vancomycin HCl 1.5 gm/ Premix 300 mls @ 200 mls/hr IV Q12H [facility] Last Admin: 07/31/20 00:29 Dose: 200 mls/hr Documented by: Sodium Chloride (Normal Saline) 1,000 mls @ 500 mls/hr IV STAT ONE Stop: 07/29/20 20:51 Last Admin: 07/29/20 19:18 Dose: 500 mls/hr Documented by: Sodium Chloride (Normal Saline) 500 mls @ 250 mls/hr IV NOW STA Stop: 07/30/20 11:33 Last Admin: 07/30/20 13:24 Dose: 250 mls/hr Documented by: Sodium Chloride (Normal Saline) 500 mls @ 250 mls/hr IV ONETIME ONE Stop: 07/30/20 18:41 Last Admin: 07/30/20 17:46 Dose: 250 mls/hr Documented by: Clindamycin Phosphate 900 mg/ (Premix) 50 mls @ 89.286 mls/hr IV Q8H [facility] Last Admin: 08/01/20 17:27 Dose: 89.286 mls/hr Documented by: Ceftriaxone Sodium/Dextrose 2 (gm/ Premix) 50 mls @ 100 mls/hr IV Q24H [facility] Last Admin: 08/01/20 10:40 Dose: 100 mls/hr Documented by: Piperacillin Sod/Tazobactam (Sod 3.375 gm/ Sodium Chloride) 100 mls @ 200 mls/hr IV Q6H [facility] Last Admin: 08/02/20 06:24 Dose: 200 mls/hr Documented by: Vancomycin HCl 1.5 gm/ Premix 300 mls @ 200 mls/hr IV Q8H [facility] Last Admin: 08/02/20 03:15 Dose: 200 mls/hr Documented by: Potassium Chloride 40 meq/ (Sodium Chloride) 520 mls @ 130 mls/hr IV 08/02/20@0900 [facility] Stop: 08/02/20 12:59 Last Admin: 08/02/20 09:44 Dose: 130 mls/hr Documented by: Sodium Chloride (Normal Saline) 1,000 mls @ 999 mls/hr IV STAT ONE Stop: 08/02/20 13:30 Last Admin: 08/02/20 12:41 Dose: 999 mls/hr Documented by: Iopamidol (Isovue Multipack-370 (76%)) 100 ml IVPUSH ONETIME STA Stop: 07/29/20 11:31 Last Admin: 07/29/20 11:30 Dose: 100 ml Documented by: Iopamidol (Isovue-370 (76%)) 100 ml IVPUSH ONETIME ONE Stop: 08/02/20 07:57 Last Admin: 08/02/20 07:57 Dose: 100 ml Documented by: Morphine Sulfate (Morphine) 2 mg IVPUSH ONETIME ONE Stop: 07/29/20 21:35 Last Admin: 07/29/20 23:33 Dose: 1 mg Documented by: Potassium Chloride (Klor-Con M20) 40 meq PO ONETIME ONE Stop: 07/31/20 07:53 Last Admin: 07/31/20 08:16 Dose: 40 meq Documented by: Potassium Chloride (Klor-Con M20) 40 meq PO ONETIME ONE Stop: 07/31/20 08:31 Last Admin: 07/31/20 10:33 Dose: Not Given Documented by: Potassium Chloride (Klor-Con M20) 40 meq PO ONETIME ONE Stop: 08/01/20 07:41 Last Admin: 08/01/20 08:24 Dose: 40 meq Documented by: Potassium Chloride (Klor-Con M20) 40 meq PO ONETIME ONE Stop: 08/01/20 14:01 Last Admin: 08/01/20 14:48 Dose: 40 meq Documented by: Potassium Chloride (Potassium Chloride) 40 meq PO 08/02/20@0900 [facility] Stop: 08/02/20 09:01 Last Admin: 08/02/20 09:55 Dose: 40 meq Documented by: Spironolactone (Aldactone) 25 mg PO DAILY [facility] Last Admin: 07/30/20 10:19 Dose: 25 mg Documented by: Vancomycin HCl (Pharmacy To Dose - Vancomycin) 1 dose .XX ASDIRECTED [facility] Vancomycin HCl (Pharmacy To Dose - Vancomycin) 1 dose .XX ASDIRECTED [facility] Sepsis Event Note - Focused Exam Vital Signs: Vital Signs Temp Pulse Pulse Resp BP BP Pulse Ox 08/02/20 12:49 16 110/57 L 94 L 08/02/20 12:38 16 106/52 L 93 L 08/02/20 11:36 36.8 C 15 114/65 97 08/02/20 11:00 21 H 107/71 96 08/02/20 10:00 19 98/74 95 08/02/20 09:00 36.5 C 108 H 15 105/66 93 L 08/02/20 08:52 102 H 128/74 08/02/20 08:49 128/74 08/02/20 07:23 132 H 138/68 08/02/20 07:21 36.6 C 132 H 18 138/68 96 - Problem List & Annotations (1) Hyponatremia SNOMED Code(s): 15750116 Code(s): E87.1 - HYPO-OSMOLALITY AND HYPONATREMIA Status: Acute Current Visit: Yes (2) Diabetes SNOMED Code(s): 70742066 Code(s): E11.9 - TYPE 2 DIABETES MELLITUS WITHOUT COMPLICATIONS Status: Acute Current Visit: Yes (3) Cellulitis SNOMED Code(s): 109493599 Code(s): L03.90 - CELLULITIS, UNSPECIFIED Status: Acute Current Visit: Yes (4) Afib SNOMED Code(s): 43141930 Code(s): I48.91 - UNSPECIFIED ATRIAL FIBRILLATION Status: Acute Current Visit: Yes (5) Heart failure SNOMED Code(s): 60444610 Code(s): I50.9 - HEART FAILURE, UNSPECIFIED Status: Acute Current Visit: Yes (6) Foot ulcer SNOMED Code(s): 64473833 Code(s): L97.509 - NON-PRESSURE CHRONIC ULCER OTH PRT UNSP FOOT W UNSP SEVERITY Status: Acute Current Visit: Yes - My Orders Last 24 Hours: My Active Orders 08/01/20 17:17 Diltiazem 20 mg IVPUSH Q4H PRN 08/02/20 07:45 DAPTOmycin [Cubicin] 1,000 mg Sodium Chloride 0.9% [Normal Saline] 20 ml IV Q24H 08/02/20 09:00 Diltiazem [Cardizem CD] 240 mg PO DAILY 08/02/20 11:30 CULTURE WOUND [RM] Routine - Plan Plan:: I have seen and evaluated the patient and agree with the residents note unless specified in my note
[2020-08-01] MEDS ORDERED: Carvedilol 25 MG Tab PO ONE (09:40)
[2020-08-01] MEDS: Gabapentin 300 MG Cap PO SCH ×2 (10:39→20:50)
[2020-08-01] MEDS: cefTRIAXone 2 GM in Premix Bag 1 BAG IV SCH (10:40)
[2020-08-01] MEDS ORDERED: Furosemide 20 MG/2 ML VIAL IVPUSH ONE (11:47)
[2020-08-01] MEDS: Albuterol/Ipratropium 3.0-0.5 MG/3 ML Neb Soln NEB PRN (16:17)
[2020-08-01] MEDS ORDERED: Diltiazem 25 MG/5 ML SDV IVPUSH PRN (17:17)
[2020-08-01] MEDS: Piperacillin/Tazobactam 3.375 GM in Sodium Chloride 0.9% 100 ML IV SCH (19:32)
[2020-08-01] MEDS ORDERED: Sodium Chloride 0.9% 250 ML IV SCH (19:45)
[2020-08-01] MEDS ORDERED: Carvedilol 25 MG Tab PO SCH (21:00)
[2020-08-02] MEDS: Piperacillin/Tazobactam 3.375 GM in Sodium Chloride 0.9% 100 ML IV SCH ×2 (00:44→06:24)
[2020-08-02 06:25] LABS: BLOOD UREA NITROGEN,BUN 20 mg/dL (7.0-18.0); CARBON DIOXIDE,CO2 27.7 mmol/L (21.0-32.0); CHLORIDE,CL 95 mmol/L (98-107); GLUCOSE RANDOM 180 mg/dL (74-106); POTASSIUM,K 3.2 mmol/L (3.5-5.1); SODIUM,NA 131 mmol/L (136-148)
[2020-08-02] MEDS: Nystatin Topical Powder 15 GM Bottle TOP SCH (06:25)
[2020-08-02] MEDS ORDERED: Potassium Chloride Riders 40 MEQ in Premix Bag 1 BAG IV ONE (07:00)
[2020-08-02] MEDS ORDERED: Lactated Ringers 500 ML IV SCH (07:00)
[2020-08-02] MEDS ORDERED: DAPTOmycin 500 MG Vial IV SCH (07:15)
[2020-08-02] MEDS: Carvedilol 25 MG Tab PO SCH (07:23)
[2020-08-02] MEDS ORDERED: DAPTOmycin 1,000 MG in Sodium Chloride 0.9% 20 ML IV SCH (07:45)
[2020-08-02] MEDS ORDERED: Iopamidol 755 Mg/ML 100 ML Bottle IVPUSH ONE (07:56)
[2020-08-02] MEDS: Furosemide 20 MG Tab PO SCH (08:48)
[2020-08-02] MEDS: Apixaban 5 MG Tab PO SCH (08:48)
[2020-08-02] MEDS: Gabapentin 300 MG Cap PO SCH (08:48)
[2020-08-02] MEDS: Lisinopril 10 MG Tab PO SCH (08:49)
[2020-08-02] MEDS ORDERED: Potassium Chloride 40 MEQ in Sodium Chloride 0.9% 500 ML IV SCH (09:00)
[2020-08-02] MEDS ORDERED: Diltiazem 120 MG Cap.CD PO SCH (09:00)
[2020-08-02] MEDS ORDERED: Potassium Chloride 10% 20 MEQ/15 ML Soln 30 ML UD Cup PO SCH (09:00)
--- NOTE | 2020-08-02 09:00 | CT ---
INDICATION: Worsening cellulitis. COMPARISON: [address] TECHNIQUE: 100 mL Isovue-370 IV contrast above the knee to toes. Axial, coronal and sagittal formats. FINDINGS: No soft tissue air. Dense subcutaneous edema and skin thickening increases in density and conspicuity in the distal calf and ankle. Numerous subcutaneous varices. Effusion of the posterior subtalar joint. Peripheral enhancement of juxta-articular fluid collection at the medial margin (image 19 series 203). This measures about 14 mm diameter. Enhancing soft tissues presumed thickened synovitis suggested at the lateral margin of the joint. Mild posttraumatic arthrosis of the tibiotalar ankle joint and degenerative or posttraumatic arthrosis of the subtalar joints. Large os trigonum. Moderate midfoot osteoarthritis navicular articulation with the cuneiforms and tarsal metatarsal joints. Persistent lentiform area of enhancing subcutaneous intermediate attenuation with thin line of central near fluid attenuation which may be abscess or phlegmon plantar medial midfoot (image 290 series 201). This measures an estimated 4 x 2 cm. Two oval nonspecific soft tissue nodular densities dorsal forefoot over the distal metaphysis of 3rd and 4th metatarsals (image 289 series 201). Underlying joints appear normal. No definitive abnormality of adjacent extensor tendons. Diffuse moderate fatty replacement of the muscles of the calf and complete fatty replacement through the muscles of the foot. No inflammation of muscle or fascia appreciated. Small effusion at the knee. Grade 2/3 osteoarthritis in all 3 compartments. IMPRESSION: 1. Similar appearance to comparison. No soft tissue air. Diffuse edema and skin thickening. 2. Apparent effusion and inflammation at the subtalar hindfoot. Small medial periarticular fluid collection with peripheral enhancement. No erosions. Findings may be chronic inflammatory or neuropathic. Septic arthritis not excluded. 3. Focally prominent lentiform soft tissue edema and swelling with possible small amount of fluid centrally suggesting abscess or phlegmon at the plantar medial midfoot. Clinical correlation recommended. Targeted ultrasound may help further characterize if there is clinical concern. 4. Nodular intermediate attenuation foci in the dorsal forefoot over the 3rd and 4th distal metatarsals. Inflammatory nodules are consideration. Clinical correlation recommended. 5. Osteoarthritis of the knee and ankle. Please note that all CT scans at this facility use dose modulation, iterative reconstruction, and/or weight-based dosing when appropriate to reduce radiation dose to as low as reasonably achievable. Dictated by Ramiro Harmon MD @ Aug 02 2020 8:30AM Signed by Dr. Ramiro Harmon @ Aug 02 2020 8:57AM
[2020-08-02] MEDS: Insulin Aspart 100 Units/ML 3 ML Pen SUBCUT SCH (10:00)
--- NOTE | 2020-08-02 10:54 | PCM.DCSUM1 ---
<Roshan Akhtar - Last Filed: 08/02/20 13:15> Discharge Summary - Hospital Course Free Text/Narrative:: Patient is a 64-year-old male with significant past medical history of diastolic heart failure, chronic lower extremities ulcerations with type 2 diabetes, morbid obesity chronic atrial fibrillation on diltiazem and Eliquis presenting to ED on July 29, 2020 for worsening cellulitis and fatigue. Patient states that lower extremity swelling and redness has been there for quite some time and was supposed to be seen by podiatry in the outpatient follow-up in the past 24 hours the redness had become more diffuse and aggressive and proceeded to the ED. ED course: EKG: A. fib with RVR. Hyponatremia. Right tib-fib x-ray suggests cutaneous and subcutaneous induration without any obvious gas. CT imaging showed no signs of necrotizing fasciitis at this time. Patient was admitted to general medical floor. Hospital course. Patient was initiated on vancomycin and Zosyn secondary to cellulitis of right lower extremity with bullae. Bullae noted over right dorsal foot had unroofed with bloody discharge. Patient is on Eliquis and wound care was consulted and wound was dressed appropriately. Blood cultures on following examination showed group a strep growing and patient was deescalated to clindamycin and ceftriaxone. Secondary to history of heart failure fluid and Lasix was given at various intervals to help with softer blood pressures and increasing heart rate. Ultimately p.o. diltiazem had to be increased to 40 daily with Coreg also increased to 50 mg twice daily. Hyponatremia did improve daily w. elzbieta being 124; day of transfer Na 130. Day of transfer patient did experience increasing fatigue with elevated white count moving from 16-19. Patient was switched back to daptomycin and Zosyn. Electrolytes were repleted as necessary. Patient was transferred to ICU for closer monitoring of blood pressure and heart rate. Repeat CT scan did show concerns for possible abscess versus phlegmon formation in right foot mid plantar aspect with concern for septic arthritis. Discussed case with hospitalist team in [facility] patient was graciously accepted. Facility has interventional radiology and patient's program and research coordinator Dr. Lowe is available at this facility and is is consultant today as well. Patient and family agreed to plan Patient on attempt to transfer wvia ground developed softer BP (80/60); concerns regarding use of pressor usage via ground were appreciated (Afib./ CHF/ possible sepsis); was determined to start peripheral IV phenylephrine for maintaining MAPS > 65 was also given 1 Liter NS secondary to concners for possible sepsis (lactate however was nominal) Pt was then transferred via Fixed-wing to [facility]. pt is agreeable to plan Pt sent directly to ED via fixed wing - Discharge Data Discharge Date: 08/02/20 Discharge Disposition: DC/Tfer to Acute Hospital 02 Condition: Stable - Referral to Home Health Primary Care Physician: Cornel Manrique MD - Discharge Diagnosis/Problem(s) (1) Hypokalemia SNOMED Code(s): 72859057 ICD Code: E87.6 - HYPOKALEMIA Status: Acute Current Visit: Yes (2) Cellulitis SNOMED Code(s): 771834621 ICD Code: L03.90 - CELLULITIS, UNSPECIFIED Status: Acute Current Visit: Yes (3) Diabetes SNOMED Code(s): 50923371 ICD Code: E11.9 - TYPE 2 DIABETES MELLITUS WITHOUT COMPLICATIONS Status: Acute Current Visit: Yes (4) Foot ulcer SNOMED Code(s): 53327241 ICD Code: L97.509 - NON-PRESSURE CHRONIC ULCER OTH PRT UNSP FOOT W UNSP SEVERITY Status: Acute Current Visit: Yes (5) Heart failure SNOMED Code(s): 77803404 ICD Code: I50.9 - HEART FAILURE, UNSPECIFIED Status: Acute Current Visit: Yes (6) Hyponatremia SNOMED Code(s): 37849482 ICD Code: E87.1 - HYPO-OSMOLALITY AND HYPONATREMIA Status: Acute Current Visit: Yes - Patient Summary/Data Consults: Consultations 07/29/20 18:53 Consult to Wound Care Services [CONS] Routine 07/31/20 11:09 Consult to Physical Therapy [PT Evaluation and Treatment] [CONS] Routine - Discharge Plan *PRESCRIPTION DRUG MONITORING PROGRAM REVIEWED*: No *COPY OF PRESCRIPTION DRUG MONITORING REPORT IN PATIENT REGINO: No Home Medications: Home Meds Apixaban [Eliquis] 5 mg PO BID 07/29/20 [History] Diltiazem [Cardizem] 120 mg PO DAILY 07/29/20 [History] Patient Handouts: Cellulitis, Adult, [id number] Referrals: Cornel Manrique MD [Primary Care Provider] - 08/21/20 8:30 am - Patient Data Vitals - Most Recent: Last Vital Signs Temp 97.7 F 08/02/20 09:00 Pulse 108 H 08/02/20 09:00 Resp 15 08/02/20 09:00 BP 105/66 08/02/20 09:00 Pulse Ox 93 L 08/02/20 09:00 Weight - Most Recent: 142.564 kg I&O - Last 24 hours: Intake & Output 08/01/20 08/02/20 08/02/20 22:59 06:59 14:59 Intake Total 1020 480 Output Total 1475 1175 Balance -455 -695 Lab Results - Last 24 hrs: Laboratory Results - last 24 hr 08/02/20 08/02/20 08/02/20 Range/Units 05:35 05:35 07:31 WBC 19.36 H (4.0-11.0) K/uL RBC 4.64 (4.50-5.90) M/uL Hgb 13.1 (13.0-17.0) g/dL Hct 40.0 (38.0-50.0) % MCV 86.2 (80.0-98.0) fL MCH 28.2 (27.0-32.0) pg MCHC 32.8 (31.0-37.0) g/dL RDW Std Deviation 49.6 (28.0-62.0) fl RDW Coeff of Conchita 16 H (11.0-15.0) % Plt Count 163 (150-400) K/uL MPV 9.00 (7.40-12.00) fL Add Manual Diff YES Neutrophils % (Manual) 69 (48.0-80.0) % Band Neutrophils % 12 % Lymphocytes % (Manual) 15 L (16.0-40.0) % Monocytes % (Manual) 3 (0.0-15.0) % Eosinophils % (Manual) 1 (0.0-7.0) % Nucleated RBC % 0.0 /100WBC Absolute Seg Neuts 13.4 H (1.4-5.7) Band Neutrophils # 2.3 Lymphocytes # (Manual) 2.9 H (0.6-2.4) Monocytes # (Manual) 0.6 (0.0-0.8) Eosinophils # (Manual) 0.2 (0.0-0.7) Nucleated RBCs # 0 K/uL Lactate 1.4 (0.20-2.00) mmol/L Sodium 131 L (136-148) mmol/L Potassium 3.2 L (3.5-5.1) mmol/L Chloride 95 L (98-107) mmol/L Carbon Dioxide 27.7 (21.0-32.0) mmol/L BUN 20 H (7.0-18.0) mg/dL Creatinine 0.8 (0.8-1.3) mg/dL Est Cr Clr Drug Dosing 106.81 mL/min Estimated GFR (MDRD) > 60.0 ml/min Glucose 180 H (74-106) mg/dL Calcium 8.8 (8.5-10.1) mg/dL Magnesium 1.9 (1.8-2.4) mg/dL Total Bilirubin 0.7 (0.2-1.0) mg/dL AST 19 (15-37) IU/L ALT 26 (14-63) IU/L Alkaline Phosphatase 84 (46-116) U/L Total Protein 6.2 L (6.4-8.2) g/dL Albumin 2.2 L (3.4-5.0) g/dL Globulin 4.0 (2.6-4.0) g/dL Albumin/Globulin Ratio 0.6 L (0.9-1.6) MELLY Results - Last 24 hrs: Microbiology 07/31/20 10:23 Aerobic Blood Culture - Preliminary Blood - Venous NO GROWTH AFTER 2 DAYS Anaerobic Blood Culture - Preliminary NO GROWTH AFTER 2 DAYS 07/31/20 10:33 Aerobic Blood Culture - Preliminary Blood - Venous - Lab Draw NO GROWTH AFTER 2 DAYS Anaerobic Blood Culture - Preliminary NO GROWTH AFTER 2 DAYS 07/29/20 09:57 Aerobic Blood Culture - Final Blood - Venous - Lab Draw Streptococcus Group A Anaerobic Blood Culture - Preliminary NO GROWTH AFTER 4 DAYS 07/29/20 09:43 Aerobic Blood Culture - Preliminary Blood - Venous NO GROWTH AFTER 4 DAYS Anaerobic Blood Culture - Preliminary NO GROWTH AFTER 4 DAYS 07/29/20 13:15 Stool Culture - Preliminary Stool / Feces Shiga Toxin I & II - Final Med Orders - Current: Current Medications Acetaminophen (Tylenol Extra Strength) 1,000 mg PO Q6H PRN PRN Reason: Pain Albuterol/Ipratropium (Duoneb 3.0-0.5 Mg/3 Ml) 3 ml NEB Q4HRRT PRN PRN Reason: dyspnea/wheezing Last Admin: 08/01/20 16:17 Dose: 3 ml Documented by: Apixaban (Eliquis) 5 mg PO BID [facility] Last Admin: 08/02/20 08:48 Dose: 5 mg Documented by: Carvedilol (Coreg) 50 mg PO BIDMEALS [facility] Last Admin: 08/02/20 07:23 Dose: 50 mg Documented by: Dextrose/Water (Dextrose 50% In Water) 50 ml IV ASDIRECTED PRN PRN Reason: Hypoglycemia Diltiazem HCl (Diltiazem) 20 mg IVPUSH Q4H PRN PRN Reason: Tachycardia Last Admin: 08/02/20 05:39 Dose: 20 mg Documented by: Diltiazem HCl (Cardizem Cd) 240 mg PO DAILY [facility] Last Admin: 08/02/20 08:52 Dose: 240 mg Documented by: Furosemide (Lasix) 20 mg PO DAILY [facility] Last Admin: 08/02/20 08:48 Dose: 20 mg Documented by: Gabapentin (Neurontin) 300 mg PO BID [facility] Last Admin: 08/02/20 08:48 Dose: 300 mg Documented by: Glucagon (Glucagen) 1 mg IM ASDIRECTED PRN PRN Reason: Hypoglycemia Sodium Chloride (Normal Saline) 250 mls @ 999 mls/hr IV STAT [facility] Last Admin: 08/01/20 19:57 Dose: 999 mls/hr Documented by: Daptomycin 1,000 mg/ Sodium (Chloride) 20 mls @ 600 mls/hr IV Q24H [facility] Last Admin: 08/02/20 09:37 Dose: 600 mls/hr Documented by: Piperacillin Sod/Tazobactam (Sod 4.5 gm/ Sodium Chloride) 100 mls @ 200 mls/hr IV Q6H [facility] Potassium Chloride 40 meq/ (Sodium Chloride) 520 mls @ 130 mls/hr IV 08/02/20@0900 [facility] Stop: 08/02/20 12:59 Last Admin: 08/02/20 09:44 Dose: 130 mls/hr Documented by: Insulin Aspart (Novolog) 0 unit SUBCUT TIDAC [facility]; Protocol Last Admin: 08/02/20 10:00 Dose: 4 units Documented by: Lisinopril (Prinivil) 10 mg PO DAILY [facility] Last Admin: 08/02/20 08:49 Dose: 10 mg Documented by: Nystatin (Nystop) 1 gm TOP TID [facility] Last Admin: 08/02/20 06:25 Dose: 1 gm Documented by: Oxycodone HCl (Oxycodone) 5 mg PO Q8H PRN PRN Reason: Pain Last Admin: 07/31/20 21:24 Dose: 5 mg Documented by: Sodium Chloride (Saline Flush) 10 ml FLUSH ASDIRECTED PRN PRN Reason: Keep Vein Open Last Admin: 07/29/20 09:53 Dose: 10 ml Documented by: Sodium Chloride (Saline Flush) 2.5 ml FLUSH ASDIRECTED PRN PRN Reason: Keep Vein Open Last Admin: 07/29/20 09:53 Dose: 2.5 ml Documented by: Sodium Chloride ([place] Saline Nasal Gel) 0 gm SCOTT ASDIRECTED PRN PRN Reason: Nasal Dryness Last Admin: 07/29/20 21:54 Dose: 1 spray Documented by: Discontinued Medications Acetaminophen (Tylenol Extra Strength) 1,000 mg PO ONETIME ONE Stop: 07/29/20 12:39 Last Admin: 07/29/20 13:35 Dose: 1,000 mg Documented by: Acetaminophen (Tylenol Extra Strength) 500 mg PO Q6H PRN PRN Reason: Pain Last Admin: 07/31/20 01:58 Dose: 500 mg Documented by: Carvedilol (Coreg) 25 mg PO BID [facility] Last Admin: 08/01/20 08:26 Dose: 25 mg Documented by: Carvedilol (Coreg) 50 mg PO BID [facility] Carvedilol (Coreg) 25 mg PO ONETIME ONE Stop: 08/01/20 09:41 Last Admin: 08/01/20 10:45 Dose: Not Given Documented by: Diltiazem HCl (Cardizem Cd) 120 mg PO DAILY [facility] Last Admin: 08/01/20 08:26 Dose: 120 mg Documented by: Diltiazem HCl (Diltiazem) 20 mg IVPUSH Q6H PRN PRN Reason: Tachycardia Last Admin: 08/01/20 16:01 Dose: 20 mg Documented by: Furosemide (Lasix) 50 mg PO DAILY [facility] Furosemide (Lasix) 40 mg IVPUSH NOW ONE Stop: 07/30/20 19:06 Last Admin: 07/30/20 19:47 Dose: Not Given Documented by: Furosemide (Lasix) 40 mg IVPUSH ONETIME ONE Stop: 08/01/20 11:48 Last Admin: 08/01/20 14:47 Dose: 40 mg Documented by: Piperacillin Sod/Tazobactam (Sod 4.5 gm/ Sodium Chloride) 100 mls @ 200 mls/hr IV STAT ONE Stop: 07/29/20 10:10 Last Admin: 07/29/20 12:09 Dose: Not Given Documented by: Gentamicin Sulfate 160 mg/ (Sodium Chloride) 104 mls @ 200 mls/hr IV STAT ONE Stop: 07/29/20 10:10 Last Admin: 07/29/20 10:51 Dose: 200 mls/hr Documented by: Lactated Ringer's (Ringers, Lactated) 1,000 mls @ 999 mls/hr IV ASDIRECTED [facility] Last Admin: 07/29/20 09:52 Dose: 999 mls/hr Documented by: Lactated Ringer's (Ringers, Lactated) 1,000 mls @ 500 mls/hr IV ASDIRECTED [facility] Last Admin: 07/29/20 09:53 Dose: 500 mls/hr Documented by: Piperacillin Sod/Tazobactam (Sod 4.5 gm/ Sodium Chloride) 100 mls @ 200 mls/hr IV STAT ONE Stop: 07/29/20 10:29 Last Admin: 07/29/20 12:23 Dose: Not Given Documented by: Vancomycin HCl 2 gm/ Premix 400 mls @ 200 mls/hr IV ONETIME ONE Stop: 07/29/20 13:59 Last Admin: 07/29/20 11:55 Dose: 200 mls/hr Documented by: Piperacillin Sod/Tazobactam (Sod 4.5 gm/ Sodium Chloride) 100 mls @ 200 mls/hr IV STAT ONE Stop: 07/29/20 12:44 Last Admin: 07/29/20 12:21 Dose: 200 mls/hr Documented by: Piperacillin Sod/Tazobactam (Sod 4.5 gm/ Sodium Chloride) 100 mls @ 100 mls/hr IV Q6H [facility] Last Admin: 07/31/20 05:10 Dose: 100 mls/hr Documented by: Vancomycin HCl 1.5 gm/ Premix 300 mls @ 200 mls/hr IV Q12H [facility] Last Admin: 07/31/20 00:29 Dose: 200 mls/hr Documented by: Sodium Chloride (Normal Saline) 1,000 mls @ 500 mls/hr IV STAT ONE Stop: 07/29/20 20:51 Last Admin: 07/29/20 19:18 Dose: 500 mls/hr Documented by: Sodium Chloride (Normal Saline) 500 mls @ 250 mls/hr IV NOW STA Stop: 07/30/20 11:33 Last Admin: 07/30/20 13:24 Dose: 250 mls/hr Documented by: Sodium Chloride (Normal Saline) 500 mls @ 250 mls/hr IV ONETIME ONE Stop: 07/30/20 18:41 Last Admin: 07/30/20 17:46 Dose: 250 mls/hr Documented by: Clindamycin Phosphate 900 mg/ (Premix) 50 mls @ 89.286 mls/hr IV Q8H [facility] Last Admin: 08/01/20 17:27 Dose: 89.286 mls/hr Documented by: Ceftriaxone Sodium/Dextrose 2 (gm/ Premix) 50 mls @ 100 mls/hr IV Q24H [facility] Last Admin: 08/01/20 10:40 Dose: 100 mls/hr Documented by: Piperacillin Sod/Tazobactam (Sod 3.375 gm/ Sodium Chloride) 100 mls @ 200 mls/hr IV Q6H [facility] Last Admin: 08/02/20 06:24 Dose: 200 mls/hr Documented by: Vancomycin HCl 1.5 gm/ Premix 300 mls @ 200 mls/hr IV Q8H [facility] Last Admin: 08/02/20 03:15 Dose: 200 mls/hr Documented by: Iopamidol (Isovue Multipack-370 (76%)) 100 ml IVPUSH ONETIME STA Stop: 07/29/20 11:31 Last Admin: 07/29/20 11:30 Dose: 100 ml Documented by: Iopamidol (Isovue-370 (76%)) 100 ml IVPUSH ONETIME ONE Stop: 08/02/20 07:57 Last Admin: 08/02/20 07:57 Dose: 100 ml Documented by: Morphine Sulfate (Morphine) 2 mg IVPUSH ONETIME ONE Stop: 07/29/20 21:35 Last Admin: 07/29/20 23:33 Dose: 1 mg Documented by: Potassium Chloride (Klor-Con M20) 40 meq PO ONETIME ONE Stop: 07/31/20 07:53 Last Admin: 07/31/20 08:16 Dose: 40 meq Documented by: Potassium Chloride (Klor-Con M20) 40 meq PO ONETIME ONE Stop: 07/31/20 08:31 Last Admin: 07/31/20 10:33 Dose: Not Given Documented by: Potassium Chloride (Klor-Con M20) 40 meq PO ONETIME ONE Stop: 08/01/20 07:41 Last Admin: 08/01/20 08:24 Dose: 40 meq Documented by: Potassium Chloride (Klor-Con M20) 40 meq PO ONETIME ONE Stop: 08/01/20 14:01 Last Admin: 08/01/20 14:48 Dose: 40 meq Documented by: Potassium Chloride (Potassium Chloride) 40 meq PO 08/02/20@0900 [facility] Stop: 08/02/20 09:01 Last Admin: 08/02/20 09:55 Dose: 40 meq Documented by: Spironolactone (Aldactone) 25 mg PO DAILY [facility] Last Admin: 07/30/20 10:19 Dose: 25 mg Documented by: Vancomycin HCl (Pharmacy To Dose - Vancomycin) 1 dose .XX ASDIRECTED [facility] Vancomycin HCl (Pharmacy To Dose - Vancomycin) 1 dose .XX ASDIRECTED [facility] <NilolIene - Last Filed: 08/02/20 17:58> Discharge Summary - Hospital Course Free Text/Narrative:: I have seen and evaluated the patient and agree with the residents note unless specified in my note Patients BP improved with IV fluid bolus and pressors were held, patient was transferred via flight to [place] for higher level of care - Referral to Home Health Primary Care Physician: Cornel Manrique MD - Discharge Diagnosis/Problem(s) (1) Hyponatremia SNOMED Code(s): 18812584 ICD Code: E87.1 - HYPO-OSMOLALITY AND HYPONATREMIA Status: Acute Current Visit: Yes (2) Diabetes SNOMED Code(s): 63449504 ICD Code: E11.9 - TYPE 2 DIABETES MELLITUS WITHOUT COMPLICATIONS Status: Acute Current Visit: Yes (3) Cellulitis SNOMED Code(s): 319178056 ICD Code: L03.90 - CELLULITIS, UNSPECIFIED Status: Acute Current Visit: Yes (4) Afib SNOMED Code(s): 46418188 ICD Code: I48.91 - UNSPECIFIED ATRIAL FIBRILLATION Status: Acute Current Visit: Yes (5) Heart failure SNOMED Code(s): 01264054 ICD Code: I50.9 - HEART FAILURE, UNSPECIFIED Status: Acute Current Visit: Yes (6) Foot ulcer SNOMED Code(s): 12578270 ICD Code: L97.509 - NON-PRESSURE CHRONIC ULCER OTH PRT UNSP FOOT W UNSP SEVERITY Status: Acute Current Visit: Yes - Patient Summary/Data Consults: Consultations 07/29/20 18:53 Consult to Wound Care Services [CONS] Routine 07/31/20 11:09 Consult to Physical Therapy [PT Evaluation and Treatment] [CONS] Routine - Discharge Summary/Plan Comment DC Time >30 min.: Yes - Patient Data Vitals - Most Recent: Last Vital Signs Temp 36.8 C 08/02/20 11:36 Pulse 108 H 08/02/20 09:00 Resp 16 08/02/20 12:49 BP 110/57 L 08/02/20 12:49 Pulse Ox 94 L 08/02/20 12:49 I&O - Last 24 hours: Intake & Output 08/02/20 08/02/20 08/02/20 06:59 14:59 22:59 Intake Total 480 1350 Output Total 1175 900 Balance -695 450 Lab Results - Last 24 hrs: Laboratory Results - last 24 hr 08/02/20 08/02/20 08/02/20 Range/Units 05:35 05:35 07:31 WBC 19.36 H (4.0-11.0) K/uL RBC 4.64 (4.50-5.90) M/uL Hgb 13.1 (13.0-17.0) g/dL Hct 40.0 (38.0-50.0) % MCV 86.2 (80.0-98.0) fL MCH 28.2 (27.0-32.0) pg MCHC 32.8 (31.0-37.0) g/dL RDW Std Deviation 49.6 (28.0-62.0) fl RDW Coeff of Conchita 16 H (11.0-15.0) % Plt Count 163 (150-400) K/uL MPV 9.00 (7.40-12.00) fL Add Manual Diff YES Neutrophils % (Manual) 69 (48.0-80.0) % Band Neutrophils % 12 % Lymphocytes % (Manual) 15 L (16.0-40.0) % Monocytes % (Manual) 3 (0.0-15.0) % Eosinophils % (Manual) 1 (0.0-7.0) % Nucleated RBC % 0.0 /100WBC Absolute Seg Neuts 13.4 H (1.4-5.7) Band Neutrophils # 2.3 Lymphocytes # (Manual) 2.9 H (0.6-2.4) Monocytes # (Manual) 0.6 (0.0-0.8) Eosinophils # (Manual) 0.2 (0.0-0.7) Nucleated RBCs # 0 K/uL Lactate 1.4 (0.20-2.00) mmol/L Sodium 131 L (136-148) mmol/L Potassium 3.2 L (3.5-5.1) mmol/L Chloride 95 L (98-107) mmol/L Carbon Dioxide 27.7 (21.0-32.0) mmol/L BUN 20 H (7.0-18.0) mg/dL Creatinine 0.8 (0.8-1.3) mg/dL Est Cr Clr Drug Dosing 106.81 mL/min Estimated GFR (MDRD) > 60.0 ml/min Glucose 180 H (74-106) mg/dL Calcium 8.8 (8.5-10.1) mg/dL Magnesium 1.9 (1.8-2.4) mg/dL Total Bilirubin 0.7 (0.2-1.0) mg/dL AST 19 (15-37) IU/L ALT 26 (14-63) IU/L Alkaline Phosphatase 84 (46-116) U/L Total Protein 6.2 L (6.4-8.2) g/dL Albumin 2.2 L (3.4-5.0) g/dL Globulin 4.0 (2.6-4.0) g/dL Albumin/Globulin Ratio 0.6 L (0.9-1.6) MELLY Results - Last 24 hrs: Microbiology 07/29/20 13:15 Stool Culture - Final Stool / Feces Shiga Toxin I & II - Final 07/31/20 10:23 Aerobic Blood Culture - Preliminary Blood - Venous NO GROWTH AFTER 2 DAYS Anaerobic Blood Culture - Preliminary NO GROWTH AFTER 2 DAYS 07/31/20 10:33 Aerobic Blood Culture - Preliminary Blood - Venous - Lab Draw NO GROWTH AFTER 2 DAYS Anaerobic Blood Culture - Preliminary NO GROWTH AFTER 2 DAYS 07/29/20 09:57 Aerobic Blood Culture - Final Blood - Venous - Lab Draw Streptococcus Group A Anaerobic Blood Culture - Preliminary NO GROWTH AFTER 4 DAYS 07/29/20 09:43 Aerobic Blood Culture - Preliminary Blood - Venous NO GROWTH AFTER 4 DAYS Anaerobic Blood Culture - Preliminary NO GROWTH AFTER 4 DAYS Med Orders - Current: Current Medications Acetaminophen (Tylenol Extra Strength) 1,000 mg PO Q6H PRN PRN Reason: Pain Last Admin: 08/02/20 12:51 Dose: 1,000 mg Documented by: Albuterol/Ipratropium (Duoneb 3.0-0.5 Mg/3 Ml) 3 ml NEB Q4HRRT PRN PRN Reason: dyspnea/wheezing Last Admin: 08/01/20 16:17 Dose: 3 ml Documented by: Apixaban (Eliquis) 5 mg PO BID [facility] Last Admin: 08/02/20 08:48 Dose: 5 mg Documented by: Carvedilol (Coreg) 50 mg PO BIDMEALS [facility] Last Admin: 08/02/20 07:23 Dose: 50 mg Documented by: Dextrose/Water (Dextrose 50% In Water) 50 ml IV ASDIRECTED PRN PRN Reason: Hypoglycemia Diltiazem HCl (Diltiazem) 20 mg IVPUSH Q4H PRN PRN Reason: Tachycardia Last Admin: 08/02/20 05:39 Dose: 20 mg Documented by: Diltiazem HCl (Cardizem Cd) 240 mg PO DAILY [facility] Last Admin: 08/02/20 08:52 Dose: 240 mg Documented by: Furosemide (Lasix) 20 mg PO DAILY [facility] Last Admin: 08/02/20 08:48 Dose: 20 mg Documented by: Gabapentin (Neurontin) 300 mg PO BID [facility] Last Admin: 08/02/20 08:48 Dose: 300 mg Documented by: Glucagon (Glucagen) 1 mg IM ASDIRECTED PRN PRN Reason: Hypoglycemia Sodium Chloride (Normal Saline) 250 mls @ 999 mls/hr IV STAT [facility] Last Admin: 08/01/20 19:57 Dose: 999 mls/hr Documented by: Daptomycin 1,000 mg/ Sodium (Chloride) 20 mls @ 600 mls/hr IV Q24H [facility] Last Admin: 08/02/20 09:37 Dose: 600 mls/hr Documented by: Piperacillin Sod/Tazobactam (Sod 4.5 gm/ Sodium Chloride) 100 mls @ 200 mls/hr IV Q6H [facility] Lactated Ringer's (Ringers, Lactated) 1,000 mls @ 125 mls/hr IV ASDIRECTED [facility] Phenylephrine HCl 10 mg/ (Sodium Chloride) 100 mls @ 24 mls/hr IV TITRATE [facility]; Protocol Last Admin: 08/02/20 13:00 Dose: 40 mcg/min, 24 mls/hr Documented by: Insulin Aspart (Novolog) 0 unit SUBCUT TIDAC [facility]; Protocol Last Admin: 08/02/20 10:00 Dose: 4 units Documented by: Lisinopril (Prinivil) 10 mg PO DAILY [facility] Last Admin: 08/02/20 08:49 Dose: 10 mg Documented by: Nystatin (Nystop) 1 gm TOP TID [facility] Last Admin: 08/02/20 06:25 Dose: 1 gm Documented by: Oxycodone HCl (Oxycodone) 5 mg PO Q8H PRN PRN Reason: Pain Last Admin: 07/31/20 21:24 Dose: 5 mg Documented by: Sodium Chloride (Saline Flush) 10 ml FLUSH ASDIRECTED PRN PRN Reason: Keep Vein Open Last Admin: 07/29/20 09:53 Dose: 10 ml Documented by: Sodium Chloride (Saline Flush) 2.5 ml FLUSH ASDIRECTED PRN PRN Reason: Keep Vein Open Last Admin: 07/29/20 09:53 Dose: 2.5 ml Documented by: Sodium Chloride ([place] Saline Nasal Gel) 0 gm SCOTT ASDIRECTED PRN PRN Reason: Nasal Dryness Last Admin: 07/29/20 21:54 Dose: 1 spray Documented by: Discontinued Medications Acetaminophen (Tylenol Extra Strength) 1,000 mg PO ONETIME ONE Stop: 07/29/20 12:39 Last Admin: 07/29/20 13:35 Dose: 1,000 mg Documented by: Acetaminophen (Tylenol Extra Strength) 500 mg PO Q6H PRN PRN Reason: Pain Last Admin: 07/31/20 01:58 Dose: 500 mg Documented by: Carvedilol (Coreg) 25 mg PO BID [facility] Last Admin: 08/01/20 08:26 Dose: 25 mg Documented by: Carvedilol (Coreg) 50 mg PO BID [facility] Carvedilol (Coreg) 25 mg PO ONETIME ONE Stop: 08/01/20 09:41 Last Admin: 08/01/20 10:45 Dose: Not Given Documented by: Diltiazem HCl (Cardizem Cd) 120 mg PO DAILY [facility] Last Admin: 08/01/20 08:26 Dose: 120 mg Documented by: Diltiazem HCl (Diltiazem) 20 mg IVPUSH Q6H PRN PRN Reason: Tachycardia Last Admin: 08/01/20 16:01 Dose: 20 mg Documented by: Furosemide (Lasix) 50 mg PO DAILY [facility] Furosemide (Lasix) 40 mg IVPUSH NOW ONE Stop: 07/30/20 19:06 Last Admin: 07/30/20 19:47 Dose: Not Given Documented by: Furosemide (Lasix) 40 mg IVPUSH ONETIME ONE Stop: 08/01/20 11:48 Last Admin: 08/01/20 14:47 Dose: 40 mg Documented by: Piperacillin Sod/Tazobactam (Sod 4.5 gm/ Sodium Chloride) 100 mls @ 200 mls/hr IV STAT ONE Stop: 07/29/20 10:10 Last Admin: 07/29/20 12:09 Dose: Not Given Documented by: Gentamicin Sulfate 160 mg/ (Sodium Chloride) 104 mls @ 200 mls/hr IV STAT ONE Stop: 07/29/20 10:10 Last Admin: 07/29/20 10:51 Dose: 200 mls/hr Documented by: Lactated Ringer's (Ringers, Lactated) 1,000 mls @ 999 mls/hr IV ASDIRECTED [facility] Last Admin: 07/29/20 09:52 Dose: 999 mls/hr Documented by: Lactated Ringer's (Ringers, Lactated) 1,000 mls @ 500 mls/hr IV ASDIRECTED [facility] Last Admin: 07/29/20 09:53 Dose: 500 mls/hr Documented by: Piperacillin Sod/Tazobactam (Sod 4.5 gm/ Sodium Chloride) 100 mls @ 200 mls/hr IV STAT ONE Stop: 07/29/20 10:29 Last Admin: 07/29/20 12:23 Dose: Not Given Documented by: Vancomycin HCl 2 gm/ Premix 400 mls @ 200 mls/hr IV ONETIME ONE Stop: 07/29/20 13:59 Last Admin: 07/29/20 11:55 Dose: 200 mls/hr Documented by: Piperacillin Sod/Tazobactam (Sod 4.5 gm/ Sodium Chloride) 100 mls @ 200 mls/hr IV STAT ONE Stop: 07/29/20 12:44 Last Admin: 07/29/20 12:21 Dose: 200 mls/hr Documented by: Piperacillin Sod/Tazobactam (Sod 4.5 gm/ Sodium Chloride) 100 mls @ 100 mls/hr IV Q6H [facility] Last Admin: 07/31/20 05:10 Dose: 100 mls/hr Documented by: Vancomycin HCl 1.5 gm/ Premix 300 mls @ 200 mls/hr IV Q12H [facility] Last Admin: 07/31/20 00:29 Dose: 200 mls/hr Documented by: Sodium Chloride (Normal Saline) 1,000 mls @ 500 mls/hr IV STAT ONE Stop: 07/29/20 20:51 Last Admin: 07/29/20 19:18 Dose: 500 mls/hr Documented by: Sodium Chloride (Normal Saline) 500 mls @ 250 mls/hr IV NOW STA Stop: 07/30/20 11:33 Last Admin: 07/30/20 13:24 Dose: 250 mls/hr Documented by: Sodium Chloride (Normal Saline) 500 mls @ 250 mls/hr IV ONETIME ONE Stop: 07/30/20 18:41 Last Admin: 07/30/20 17:46 Dose: 250 mls/hr Documented by: Clindamycin Phosphate 900 mg/ (Premix) 50 mls @ 89.286 mls/hr IV Q8H [facility] Last Admin: 08/01/20 17:27 Dose: 89.286 mls/hr Documented by: Ceftriaxone Sodium/Dextrose 2 (gm/ Premix) 50 mls @ 100 mls/hr IV Q24H [facility] Last Admin: 08/01/20 10:40 Dose: 100 mls/hr Documented by: Piperacillin Sod/Tazobactam (Sod 3.375 gm/ Sodium Chloride) 100 mls @ 200 mls/hr IV Q6H [facility] Last Admin: 08/02/20 06:24 Dose: 200 mls/hr Documented by: Vancomycin HCl 1.5 gm/ Premix 300 mls @ 200 mls/hr IV Q8H [facility] Last Admin: 08/02/20 03:15 Dose: 200 mls/hr Documented by: Potassium Chloride 40 meq/ (Sodium Chloride) 520 mls @ 130 mls/hr IV 08/02/20@0900 [facility] Stop: 08/02/20 12:59 Last Admin: 08/02/20 09:44 Dose: 130 mls/hr Documented by: Sodium Chloride (Normal Saline) 1,000 mls @ 999 mls/hr IV STAT ONE Stop: 08/02/20 13:30 Last Admin: 08/02/20 12:41 Dose: 999 mls/hr Documented by: Iopamidol (Isovue Multipack-370 (76%)) 100 ml IVPUSH ONETIME STA Stop: 07/29/20 11:31 Last Admin: 07/29/20 11:30 Dose: 100 ml Documented by: Iopamidol (Isovue-370 (76%)) 100 ml IVPUSH ONETIME ONE Stop: 08/02/20 07:57 Last Admin: 08/02/20 07:57 Dose: 100 ml Documented by: Morphine Sulfate (Morphine) 2 mg IVPUSH ONETIME ONE Stop: 07/29/20 21:35 Last Admin: 07/29/20 23:33 Dose: 1 mg Documented by: Potassium Chloride (Klor-Con M20) 40 meq PO ONETIME ONE Stop: 07/31/20 07:53 Last Admin: 07/31/20 08:16 Dose: 40 meq Documented by: Potassium Chloride (Klor-Con M20) 40 meq PO ONETIME ONE Stop: 07/31/20 08:31 Last Admin: 07/31/20 10:33 Dose: Not Given Documented by: Potassium Chloride (Klor-Con M20) 40 meq PO ONETIME ONE Stop: 08/01/20 07:41 Last Admin: 08/01/20 08:24 Dose: 40 meq Documented by: Potassium Chloride (Klor-Con M20) 40 meq PO ONETIME ONE Stop: 08/01/20 14:01 Last Admin: 08/01/20 14:48 Dose: 40 meq Documented by: Potassium Chloride (Potassium Chloride) 40 meq PO 08/02/20@0900 [facility] Stop: 08/02/20 09:01 Last Admin: 08/02/20 09:55 Dose: 40 meq Documented by: Spironolactone (Aldactone) 25 mg PO DAILY [facility] Last Admin: 07/30/20 10:19 Dose: 25 mg Documented by: Vancomycin HCl (Pharmacy To Dose - Vancomycin) 1 dose .XX ASDIRECTED [facility] Vancomycin HCl (Pharmacy To Dose - Vancomycin) 1 dose .XX ASDIRECTED [facility]
[2020-08-02] MEDS ORDERED: Piperacillin/Tazobactam 4.5 GM in Sodium Chloride 0.9% 100 ML IV SCH (12:30)
[2020-08-02] MEDS ORDERED: Sodium Chloride 0.9% 1,000 ML IV ONE (12:30)
[2020-08-02] MEDS ORDERED: Phenylephrine 10 MG in Sodium Chloride 0.9% 99 ML IV SCH (13:00)
[2020-08-02] MEDS ORDERED: Lactated Ringers 1,000 ML IV SCH (13:45)
--- NOTE | 2020-08-07 11:44 | ECHO ---
EXAM DATE: 07/29/20 PATIENT'S AGE: 64 The ECHO report has been scanned into [employer] and can be seen in this patient's EMR (Electronic Medical Record) under the REPORTS section. The report has also been scanned into PACS. [facility]
== END 2020-08-02 12:50 | DRG 720 ==
LOC: MW.ED 09:30 → MW.MS 14:02 → MW.ICU 08-02 08:47
PROVIDERS: ADMIT Student in an Organized Health Care Education/Training Program; ATTEND Student in an Organized Health Care Education/Training Program
DX: A40.0 Sepsis due to streptococcus, group A (principal); L03.115 Cellulitis of right lower limb; I50.32 Chronic diastolic (congestive) heart failure; E66.01 Morbid (severe) obesity due to excess calories; I48.20 Chronic atrial fibrillation, unspecified; E11.622 Type 2 diabetes mellitus with other skin ulcer; L97.929 Non-pressure chronic ulcer of unspecified part of left lower leg with unspecified severity; L97.919 Non-pressure chronic ulcer of unspecified part of right lower leg with unspecified severity; E87.1 Hypo-osmolality and hyponatremia; E87.6 Hypokalemia; Z20.828 Contact with and (suspected) exposure to other viral communicable diseases; I11.0 Hypertensive heart disease with heart failure; Z79.01 Long term (current) use of anticoagulants; Z79.899 Other long term (current) drug therapy; Z68.41 Body mass index [BMI] 40.0-44.9, adult
CPT/HCPCS: 0240U; 36415; 51702; 71045; 71045-26; 73590-26-RT; 73590-RT; 73701-26-RT; 73701-RT; 73702-26-RT; 73702-RT; 80048; 80053; 81001; 82962; 83036; 83605; 83735; 83930; 83935; 84100; 84300; 84484; 85025; 85610; 87040; 87045; 87046; 87070; 87077; 87186; 87449; 87899; 93005; 93010; 93306; 94640; 96365; 96366; 96367; 99284; 99285-25; A9270-GY; J0696; J0878; J1580; J1815-GY; J1940; J2270; J2370; J2543; J3370; J3480; J3490; J7030; J7040; J7050; J7120; J7620-GY; Q9967

== ENCOUNTER 2021-12-16 10:59 | Inpatient (IN) | payer BC, MEDICAID, MEDICARE ==
[2021-12-16] MEDS ORDERED: Sodium Chloride 0.9% 1,000 ML IV ONE ×2 (11:05→11:08)
[2021-12-16] MEDS ORDERED: Piperacillin/Tazobactam 4.5 GM in Sodium Chloride 0.9% 100 ML IV ONE (11:09)
[2021-12-16] MEDS ORDERED: Ondansetron 4 MG/2 ML SDV IVPUSH ONE (11:11)
[2021-12-16] MEDS ORDERED: Ondansetron 4 MG/2 ML SDV ONE (11:12)
[2021-12-16] MEDS ORDERED: Diltiazem 25 MG/5 ML SDV IVPUSH ONE ×3 (11:14→13:52)
[2021-12-16 11:42] LABS: BLOOD UREA NITROGEN,BUN 12 mg/dL (7.0-18.0); CHLORIDE,CL 90 mmol/L (98-107); GLUCOSE RANDOM 185 mg/dL (74-106); LIPASE 58 U/L (73-393); POTASSIUM,K 4.4 mmol/L (3.5-5.1); SODIUM,NA 128 mmol/L (136-148)
[2021-12-16] MEDS ORDERED: Acetaminophen 500 MG Tab PO ONE (11:45)
[2021-12-16] MEDS ORDERED: VANCOmycin 2 GM/400 ML 2 GM in Premix Bag 1 BAG IV ONE (12:00)
[2021-12-16] MEDS ORDERED: Diltiazem 120 MG Cap.CD PO ONE (12:06)
[2021-12-16] MEDS ORDERED: Iopamidol 755 MG/ML 500 ML Multipack Bottle IVPUSH STA (12:20)
[2021-12-16 12:21] LABS: CORONAVIRUS COVID-19 NAA NEGATIVE (NEGATIVE); INFLUENZA A NAA NEGATIVE (NEGATIVE); INFLUENZA B NAA NEGATIVE (NEGATIVE)
[2021-12-16] MEDS ORDERED: niCARdipine/Normal Saline 20 MG/200 ML BAG IV SCH (14:15)
[2021-12-16] MEDS ORDERED: Sodium Chloride 0.9% 10 ML Syringe FLUSH PRN (15:38)
[2021-12-16] MEDS ORDERED: Sodium Chloride 0.9% 2.5 ML Syringe FLUSH PRN (15:38)
[2021-12-16] MEDS ORDERED: Morphine 2 MG/ML SYRINGE IVPUSH PRN (15:38)
[2021-12-16] MEDS ORDERED: Ondansetron 4 MG/2 ML SDV IVPUSH PRN (15:38)
[2021-12-16] MEDS ORDERED: Glucagon,Human Recombinant 1 MG Vial IM PRN (15:52)
[2021-12-16] MEDS ORDERED: 50% Dextrose in Water 50 ML Syringe IVPUSH PRN (15:52)
[2021-12-16] MEDS ORDERED: Piperacillin/Tazobactam 3.375 GM in Sodium Chloride 0.9% 50 ML IV SCH (16:00)
[2021-12-16] MEDS: Metoprolol Tartrate 50 MG Tab PO SCH ×2 (16:50→23:03)
[2021-12-16] MEDS: Escitalopram 10 MG Tab PO SCH ×3 (16:51→21:11)
[2021-12-16] MEDS: Pantoprazole 40 MG in Sodium Chloride 0.9% 10 ML IVPUSH SCH (16:51)
[2021-12-16] MEDS: Piperacillin/Tazobactam 3.375 GM in Sodium Chloride 0.9% 50 ML IV SCH (17:32)
[2021-12-16] MEDS: Insulin Aspart 100 Units/ML 3 ML Pen SUBCUT SCH (17:41)
[2021-12-16] MEDS: Acetaminophen 325 MG Tab PO PRN (18:45)
[2021-12-16] MEDS: Apixaban 5 MG Tab PO SCH (21:11)
[2021-12-16] MEDS: Gabapentin 100 MG Cap PO SCH (21:11)
[2021-12-16] MEDS: ALPRAZolam 0.5 MG Tab PO PRN (23:04)
[2021-12-17] MEDS: Piperacillin/Tazobactam 3.375 GM in Sodium Chloride 0.9% 50 ML IV SCH ×5 (00:06→23:56)
[2021-12-17 06:15] LABS: BLOOD UREA NITROGEN,BUN 14 mg/dL (7.0-18.0); CARBON DIOXIDE,CO2 27.7 mmol/L (21.0-32.0); CHLORIDE,CL 94 mmol/L (98-107); GLUCOSE RANDOM 169 mg/dL (74-106); POTASSIUM,K 4.2 mmol/L (3.5-5.1); SODIUM,NA 129 mmol/L (136-148)
[2021-12-17] MEDS: Pantoprazole 40 MG in Sodium Chloride 0.9% 10 ML IVPUSH SCH (08:05)
[2021-12-17] MEDS: Diltiazem 180 MG Cap.CD PO SCH (08:06)
[2021-12-17] MEDS: Diltiazem 120 MG Cap.CD PO SCH (08:06)
[2021-12-17] MEDS: Gabapentin 100 MG Cap PO SCH ×3 (08:06→20:42)
[2021-12-17] MEDS: Metoprolol Tartrate 50 MG Tab PO SCH ×2 (08:06→20:36)
[2021-12-17] MEDS: Apixaban 5 MG Tab PO SCH ×2 (08:07→20:35)
[2021-12-17] MEDS: Insulin Aspart 100 Units/ML 3 ML Pen SUBCUT SCH ×3 (08:57→18:20)
[2021-12-17] MEDS ORDERED: DILTIAZEM 300 MG PO SCH (09:00)
[2021-12-17] MEDS: Acetaminophen 325 MG Tab PO PRN ×2 (09:40→20:37)
[2021-12-17] MEDS ORDERED: Furosemide 40 MG/4 ML VIAL IVPUSH ONE (16:35)
[2021-12-17] MEDS: Escitalopram 10 MG Tab PO SCH (20:36)
[2021-12-17] MEDS: ALPRAZolam 0.5 MG Tab PO PRN (23:25)
[2021-12-18] MEDS: Piperacillin/Tazobactam 3.375 GM in Sodium Chloride 0.9% 50 ML IV SCH ×3 (05:58→18:00)
[2021-12-18 07:17] LABS: BLOOD UREA NITROGEN,BUN 19 mg/dL (7.0-18.0); CARBON DIOXIDE,CO2 27.3 mmol/L (21.0-32.0); CHLORIDE,CL 95 mmol/L (98-107); GLUCOSE RANDOM 150 mg/dL (74-106); POTASSIUM,K 3.6 mmol/L (3.5-5.1); SODIUM,NA 134 mmol/L (136-148)
[2021-12-18] MEDS: Insulin Aspart 100 Units/ML 3 ML Pen SUBCUT SCH ×3 (08:46→16:54)
[2021-12-18] MEDS: Gabapentin 100 MG Cap PO SCH ×3 (08:48→20:19)
[2021-12-18] MEDS: Diltiazem 120 MG Cap.CD PO SCH (08:48)
[2021-12-18] MEDS: Metoprolol Tartrate 50 MG Tab PO SCH ×2 (08:49→20:19)
[2021-12-18] MEDS: Diltiazem 180 MG Cap.CD PO SCH (08:49)
[2021-12-18] MEDS: Apixaban 5 MG Tab PO SCH ×2 (08:50→20:20)
[2021-12-18] MEDS: Pantoprazole 40 MG in Sodium Chloride 0.9% 10 ML IVPUSH SCH (08:50)
[2021-12-18] MEDS: Furosemide 40 MG/4 ML VIAL IVPUSH SCH ×2 (09:14→13:30)
[2021-12-18] MEDS: Escitalopram 10 MG Tab PO SCH (21:18)
[2021-12-19] MEDS: Piperacillin/Tazobactam 3.375 GM in Sodium Chloride 0.9% 50 ML IV SCH ×4 (00:46→19:01)
[2021-12-19] MEDS: Acetaminophen 325 MG Tab PO PRN (01:00)
[2021-12-19] MEDS: ALPRAZolam 0.5 MG Tab PO PRN (01:01)
[2021-12-19 07:21] LABS: BLOOD UREA NITROGEN,BUN 18 mg/dL (7.0-18.0); CARBON DIOXIDE,CO2 31.9 mmol/L (21.0-32.0); CHLORIDE,CL 96 mmol/L (98-107); GLUCOSE RANDOM 156 mg/dL (74-106); POTASSIUM,K 2.9 mmol/L (3.5-5.1); SODIUM,NA 136 mmol/L (136-148)
[2021-12-19] MEDS: Insulin Aspart 100 Units/ML 3 ML Pen SUBCUT SCH ×3 (07:46→18:58)
[2021-12-19] MEDS: Metoprolol Tartrate 50 MG Tab PO SCH ×2 (08:58→20:40)
[2021-12-19] MEDS: Apixaban 5 MG Tab PO SCH ×2 (08:58→20:35)
[2021-12-19] MEDS: Diltiazem 120 MG Cap.CD PO SCH (08:59)
[2021-12-19] MEDS: Gabapentin 100 MG Cap PO SCH ×3 (08:59→20:35)
[2021-12-19] MEDS: Furosemide 40 MG/4 ML VIAL IVPUSH SCH ×2 (08:59→14:33)
[2021-12-19] MEDS: Diltiazem 180 MG Cap.CD PO SCH (08:59)
[2021-12-19] MEDS: Pantoprazole 40 MG Tab.CR PO SCH (08:59)
[2021-12-19] MEDS ORDERED: Potassium Chloride 20 MEQ Tab.ER PO ONE ×4 (09:00→12:00)
[2021-12-19 16:57] LABS: POTASSIUM,K 3.6 mmol/L (3.5-5.1)
[2021-12-19] MEDS ORDERED: Gadobenate Dimeglumine 529 MG/ML 20 ML SDV IVPUSH STA (18:25)
[2021-12-19] MEDS ORDERED: Diltiazem 50 MG/10 ML SDV IVPUSH ONE (20:00)
[2021-12-19] MEDS: Escitalopram 10 MG Tab PO SCH (20:35)
[2021-12-20] MEDS: ALPRAZolam 0.5 MG Tab PO PRN (00:19)
[2021-12-20] MEDS: Piperacillin/Tazobactam 3.375 GM in Sodium Chloride 0.9% 50 ML IV SCH ×5 (00:23→23:28)
[2021-12-20] MEDS: Acetaminophen 325 MG Tab PO PRN ×2 (03:24→15:45)
[2021-12-20 07:21] LABS: BLOOD UREA NITROGEN,BUN 17 mg/dL (7.0-18.0); CARBON DIOXIDE,CO2 28.8 mmol/L (21.0-32.0); CHLORIDE,CL 97 mmol/L (98-107); GLUCOSE RANDOM 211 mg/dL (74-106); SODIUM,NA 135 mmol/L (136-148)
[2021-12-20] MEDS: Insulin Aspart 100 Units/ML 3 ML Pen SUBCUT SCH ×3 (07:45→18:02)
[2021-12-20] MEDS: Gabapentin 100 MG Cap PO SCH ×3 (08:53→21:30)
[2021-12-20] MEDS: Furosemide 40 MG/4 ML VIAL IVPUSH SCH ×2 (08:53→13:22)
[2021-12-20] MEDS: Pantoprazole 40 MG Tab.CR PO SCH (08:54)
[2021-12-20] MEDS: Apixaban 5 MG Tab PO SCH ×2 (08:54→21:30)
[2021-12-20] MEDS: Diltiazem 120 MG Cap.CD PO SCH (08:54)
[2021-12-20] MEDS: Diltiazem 180 MG Cap.CD PO SCH (08:55)
[2021-12-20] MEDS: Metoprolol Tartrate 50 MG Tab PO SCH ×2 (08:58→21:31)
[2021-12-20] MEDS ORDERED: Potassium Chloride 20 MEQ Tab.ER PO ONE ×3 (13:00→19:00)
[2021-12-20] MEDS ORDERED: VANCOmycin 1.5 GM/300 ML 1.5 GM in Premix Bag 1 BAG IV SCH (15:15)
[2021-12-20] MEDS ORDERED: VANCOMYCIN IV SCH (15:30)
[2021-12-20] MEDS ORDERED: SODIUM CHLORIDE 0.9% IV SCH (15:30)
[2021-12-20] MEDS: VANCOmycin 1.5 GM/300 ML 1.5 GM in Premix Bag 1 BAG IV SCH (15:45)
[2021-12-20] MEDS: Escitalopram 10 MG Tab PO SCH (21:30)
[2021-12-20] MEDS ORDERED: Diltiazem 50 MG/10 ML SDV IVPUSH ONE (22:15)
[2021-12-21] MEDS: ALPRAZolam 0.5 MG Tab PO PRN (00:36)
[2021-12-21] MEDS: VANCOmycin 1.5 GM/300 ML 1.5 GM in Premix Bag 1 BAG IV SCH ×4 (00:36→20:18)
[2021-12-21] MEDS: Acetaminophen 325 MG Tab PO PRN (00:46)
[2021-12-21] MEDS: Piperacillin/Tazobactam 3.375 GM in Sodium Chloride 0.9% 50 ML IV SCH ×4 (06:40→23:32)
[2021-12-21 07:03] LABS: BLOOD UREA NITROGEN,BUN 17 mg/dL (7.0-18.0); CARBON DIOXIDE,CO2 29.2 mmol/L (21.0-32.0); CHLORIDE,CL 98 mmol/L (98-107); GLUCOSE RANDOM 209 mg/dL (74-106); POTASSIUM,K 3.1 mmol/L (3.5-5.1); SODIUM,NA 136 mmol/L (136-148)
[2021-12-21] MEDS: Insulin Aspart 100 Units/ML 3 ML Pen SUBCUT SCH ×3 (07:57→17:04)
[2021-12-21] MEDS: Furosemide 40 MG/4 ML VIAL IVPUSH SCH ×2 (07:59→15:33)
[2021-12-21] MEDS: Metoprolol Tartrate 50 MG Tab PO SCH ×2 (08:00→20:17)
[2021-12-21] MEDS: Apixaban 5 MG Tab PO SCH ×2 (08:01→20:17)
[2021-12-21] MEDS: Diltiazem 180 MG Cap.CD PO SCH (08:01)
[2021-12-21] MEDS: Diltiazem 120 MG Cap.CD PO SCH (08:01)
[2021-12-21] MEDS: Pantoprazole 40 MG Tab.CR PO SCH (08:01)
[2021-12-21] MEDS: Gabapentin 100 MG Cap PO SCH ×3 (08:01→20:17)
[2021-12-21] MEDS ORDERED: Potassium Chloride 20 MEQ Tab.ER PO ONE (09:00)
[2021-12-21] MEDS ORDERED: Furosemide 40 MG/4 ML VIAL IVPUSH ONE (12:47)
[2021-12-21] MEDS ORDERED: Digoxin 500 MCG/2 ML Amp IVPUSH SCH (16:15)
[2021-12-21] MEDS ORDERED: Diltiazem IR 60 MG Tab PO ONE (16:30)
[2021-12-21] MEDS: Escitalopram 10 MG Tab PO SCH (20:17)
[2021-12-22] MEDS: Piperacillin/Tazobactam 3.375 GM in Sodium Chloride 0.9% 50 ML IV SCH ×2 (05:50→11:38)
[2021-12-22] MEDS: VANCOmycin 1.5 GM/300 ML 1.5 GM in Premix Bag 1 BAG IV SCH (06:51)
[2021-12-22 07:08] LABS: BLOOD UREA NITROGEN,BUN 17 mg/dL (7.0-18.0); CARBON DIOXIDE,CO2 30.4 mmol/L (21.0-32.0); CHLORIDE,CL 95 mmol/L (98-107); GLUCOSE RANDOM 231 mg/dL (74-106); POTASSIUM,K 3.3 mmol/L (3.5-5.1); SODIUM,NA 134 mmol/L (136-148)
[2021-12-22] MEDS: Insulin Aspart 100 Units/ML 3 ML Pen SUBCUT SCH ×2 (08:03→11:39)
[2021-12-22] MEDS: Furosemide 40 MG/4 ML VIAL IVPUSH SCH (08:06)
[2021-12-22] MEDS: Apixaban 5 MG Tab PO SCH (08:07)
[2021-12-22] MEDS: Pantoprazole 40 MG Tab.CR PO SCH (08:07)
[2021-12-22] MEDS: Gabapentin 100 MG Cap PO SCH (08:11)
[2021-12-22] MEDS: Metoprolol Tartrate 50 MG Tab PO SCH (08:12)
[2021-12-22] MEDS ORDERED: Diltiazem 180 MG Cap.CD PO SCH (09:00)
[2021-12-22] MEDS ORDERED: Potassium Chloride 20 MEQ Tab.ER PO ONE (12:00)
== END 2021-12-22 12:30 | disposition home or self-care (01) | DRG 872 ==
LOC: MW.ED 10:59 → MW.ICU 14:49 → MW.MS 12-18 11:08
PROVIDERS: ADMIT Internal Medicine; ATTEND Internal Medicine
DX: A41.89 Other specified sepsis (principal); L03.115 Cellulitis of right lower limb; Z68.41 Body mass index [BMI] 40.0-44.9, adult; E87.1 Hypo-osmolality and hyponatremia; L97.419 Non-pressure chronic ulcer of right heel and midfoot with unspecified severity; I50.22 Chronic systolic (congestive) heart failure; E66.01 Morbid (severe) obesity due to excess calories; E78.00 Pure hypercholesterolemia, unspecified; Z20.822 Contact with and (suspected) exposure to COVID-19; I48.91 Unspecified atrial fibrillation; R09.02 Hypoxemia; I11.0 Hypertensive heart disease with heart failure; E87.6 Hypokalemia; E11.621 Type 2 diabetes mellitus with foot ulcer; Z79.899 Other long term (current) drug therapy; Z79.01 Long term (current) use of anticoagulants
CPT/HCPCS: 0240U; 36415; 71045; 73701; 73720; 80048; 80053; 80202; 81003; 82550; 82803; 82947; 83605; 83690; 83735; 84100; 84132; 84484; 85025; 85610; 87040; 87324; 93005; 93306; 93971; 96365; 96366; 96367; 96375; 96376; 99291; 93010; 99292; A9270-GY; A9577; C9113; J1815-GY; J1940; J2405; J2543; J3370; J3490; J7030; J7050; Q9967